=== PATIENT | female | born 1940 | race Caucasian/White ===

== ENCOUNTER 2020-09-09 11:08 | Outpatient (REF) | payer MEDICARE, SELFPAY | END 2020-09-09 11:09 | disposition home or self-care (01) | LOC: HO.HMGCLDS 11:08 | PROVIDERS: PCP Internal Medicine; Visit Provider Internal Medicine | DX: Z20.828 Contact with and (suspected) exposure to other viral communicable diseases (principal) | CPT/HCPCS: 87635 ==

== ENCOUNTER 2020-09-23 09:23 | Outpatient (REF) | payer MEDICARE, SELFPAY ==
[2020-09-23 11:52] LABS: Alanine Aminotransferase 13 U/L (0-31); Anion Gap 12 (12-20); Aspartate Amino Transferase 18 U/L (5-31); Blood Urea Nitrogen 18 mg/dL (9-16); Calcium 8.9 mg/dL (8.4-10.2); Carbon Dioxide 27 mmol/L (22-29); Chloride 105 mmol/L (96-108); Cholesterol 163 mg/dL; Estimated Glomerular Filt Rate > 60; Glucose Fasting 92 mg/dL (60-99); HDL Cholesterol 56 mg/dL; LDL Cholesterol Calculated 90 mg/dl; Potassium 4.3 mmol/l (3.3-5.1); Sodium 140 mmol/L (135-145); Triglycerides 88 mg/dL
[2020-09-23 13:48] LABS: Free T4 (Free Thyroxine) 1.19 ng/dL (0.71-1.85); Thyroid Stimulating Hormone 0.54 uIU/mL (0.32-4.0); Vitamin D 25-OH Total 56.1 ng/mL (>30)
== END 2020-09-23 09:24 | disposition home or self-care (01) ==
LOC: HO.HMGCLDS 09:23
PROVIDERS: PCP Internal Medicine; Visit Provider Internal Medicine
DX: E78.5 Hyperlipidemia, unspecified (principal); Z78.0 Asymptomatic menopausal state
CPT/HCPCS: 80048; 80061; 82306; 84439; 84443; 84450; 84460

== ENCOUNTER 2021-03-12 09:19 | Outpatient (REF) | payer MEDICARE, SELFPAY ==
[2021-03-12 12:02] LABS: Anion Gap 13 (12-20); Blood Urea Nitrogen 17 mg/dL (9-16); Calcium 9.6 mg/dL (8.4-10.2); Carbon Dioxide 27 mmol/L (22-29); Chloride 106 mmol/L (96-108); Cholesterol 179 mg/dL; Estimated Glomerular Filt Rate > 60; Glucose Fasting 89 mg/dL (60-99); HDL Cholesterol 56 mg/dL; LDL Cholesterol Calculated 100 mg/dl; Potassium 4.1 mmol/L (3.3-5.1); Sodium 142 mmol/L (135-145); Triglycerides 116 mg/dL
[2021-03-12 12:10] LABS: Free T4 (Free Thyroxine) 1.12 ng/dL (0.71-1.85); Thyroid Stimulating Hormone 0.77 uIU/mL (0.32-4.0); Vitamin D 25-OH Total 57.7 ng/mL (>30)
== END 2021-03-12 09:20 | disposition home or self-care (01) ==
LOC: HO.HMGCLDS 09:19
PROVIDERS: PCP Internal Medicine; Visit Provider Internal Medicine
DX: M85.89 Other specified disorders of bone density and structure, multiple sites (principal); E03.9 Hypothyroidism, unspecified; E78.5 Hyperlipidemia, unspecified; I10 Essential (primary) hypertension; Z78.0 Asymptomatic menopausal state
CPT/HCPCS: 36415; 80048; 80061; 82306; 84439; 84443

== ENCOUNTER 2021-04-28 12:21 | Outpatient (REF) | payer MEDICARE, SELFPAY ==
--- NOTE | ~2021-04-28 | MM_ITS ---
EXAMINATION: BONE DENSITOMETRY CLINICAL INDICATION: Encounter for screening for osteoporosis. COMPARISON: Previous BD dated 01/18/2018 and baseline BD dated 03/19/2008. TECHNIQUE: Using a [employer] DXA System (software version: 13.1) manufactured by [employer], dual-energy x-ray absorptiometry was performed of the lumbar spine and left hip. The images are of good technical quality. Summary results are attached. FINDINGS: AP SPINE L1-L2 (excluding L3 and L4): The data of L1-L4 has been changed to exclude the L3 and L4 vertebral bodies, because lumbar curvature and degenerative changes at these levels may cause overestimation of lumbar spine density. Current: BMD 0.929 g/cm2, Z-score -0.4, T-score -2.0, osteopenia, 0.5% decrease from previous, 2.8% decrease from baseline (<5% change is not significant). Prior: BMD 0.934 g/cm2. Baseline: BMD 0.956 g/cm2. LEFT FEMUR, NECK: Current: BMD 0.725 g/cm2, Z-score -0.3, T-score -2.3, osteopenia. Prior: BMD 0.779 g/cm2. Baseline: BMD 0.861 g/cm2. LEFT FEMUR, TOTAL: Current: BMD 0.782 g/cm2, Z-score 0.0, T-score -1.8, osteopenia, 11.3% decrease from previous, 13.0% decrease from baseline (<5% change is not significant). Prior: BMD 0.882 g/cm2. Baseline: BMD 0.899 g/cm2. IDENTIFIED RISK FACTORS: Osteoporosis, height loss, menopause, bilateral oophorectomy. HISTORY OF FRACTURE: None listed. MEDICATIONS: Vitamin D. MM/XR DEXA axial skeleton IMPRESSION: 1. DIAGNOSIS: Osteopenia based on the lowest T-score value of -2.3 in the femoral neck applying World Health Organization criteria. 2. 10-YEAR FRACTURE RISK PREDICTION, FRAX: Major osteoporotic fracture (clinical spine, forearm, hip or shoulder) 17.0%. Hip fracture 5.4%. 3. Treatment Recommendations: NOF guidelines recommend consideration for treatment in postmenopausal women and men age 50 and older presenting with the following: -A hip or vertebral (clinical or morphometric) fracture. -T-score less than or equal to -2.5 at the femoral neck or spine after appropriate evaluation to exclude secondary causes. -Low bone mass at the hip or spine and a 10-year fracture probability by FRAX of greater than or equal to 3% for hip fracture or greater than or equal to 20% for major osteoporotic fracture based on the [place] adapted WHO algorithm. 4. Other Recommendations: All treatment decisions require clinical judgment and consideration of individual patient factors, including patient preferences, comorbidities, previous drug use, risk factors not captured in the FRAX model (e.g. frailty, falls, vitamin D deficiency, increased bone turnover, interval significant decline in bone density) and possible under or overestimation of fracture risk by FRAX. Additional medical evaluation for secondary cause of low bone mineral density may be appropriate. FUTURE SCAN RECOMMENDATION: People with diagnosed cases of osteoporosis or at high risk for fracture should have regular bone mineral density tests. For patients eligible for Medicare, routine testing is allowed once every 2 years. The testing frequency can be increased to one year for patients who have rapidly progressing disease, those who are receiving or discontinuing medical therapy to restore bone mass, or have additional risk factors.
--- NOTE | ~2021-04-28 | MM_ITS ---
EXAMINATION: MM SCREENING DIGITAL BREAST TOMOSYNTHESIS, BILATERAL CLINICAL INFORMATION: Screening. Asymptomatic. The lifetime risk of breast cancer based on the Tyrer-Cuzick Model is 2%. COMPARISON: Mammography: 01/29/2019, 01/24/2019, 01/18/2018, 12/27/2016 TECHNIQUE: Digital breast tomosynthesis is performed in both the craniocaudal and mediolateral oblique views along with computer-aided detection (CAD). Synthesized 2D images are generated from the tomosynthesis. FINDINGS: There are scattered areas of fibroglandular density (ACR BI-RADS breast composition Category b). Parenchymal pattern is similar to prior studies. There is no developing density or interval mass or architectural abnormality. There are scattered bilateral vascular and benign round calcifications. The axilla and skin contours are unremarkable. No significant changes from prior studies. MM/MM tomosynthesis screening BI IMPRESSION: No mammographic evidence of malignancy. ASSESSMENT: BI-RADS 2: Benign RECOMMENDATION: Routine annual mammography screening. This patient's information was entered into a reminder system with a target due date for their next mammogram.
== END 2021-04-28 12:22 | disposition home or self-care (01) ==
LOC: HO.MAMMO 12:21
PROVIDERS: Visit Provider Internal Medicine
DX: Z12.31 Encounter for screening mammogram for malignant neoplasm of breast (principal); Z13.820 Encounter for screening for osteoporosis; M85.89 Other specified disorders of bone density and structure, multiple sites; Z78.0 Asymptomatic menopausal state; Z98.890 Other specified postprocedural states; Z79.899 Other long term (current) drug therapy
CPT/HCPCS: 77063; 77067; 77080

== ENCOUNTER 2021-09-09 08:17 | Outpatient (REF) | payer MEDICARE, SELFPAY ==
[2021-09-09 11:53] LABS: Alanine Aminotransferase 8 U/L (0-31); Anion Gap 11 (12-20); Aspartate Amino Transferase 17 U/L (5-31); Blood Urea Nitrogen 13 mg/dL (9-16); Calcium 9.2 mg/dL (8.4-10.2); Carbon Dioxide 28 mmol/L (22-29); Chloride 106 mmol/L (96-108); Cholesterol 163 mg/dL; Estimated Glomerular Filt Rate > 60; Glucose Fasting 92 mg/dL (60-99); HDL Cholesterol 57 mg/dL; LDL Cholesterol Calculated 91 mg/dl; Potassium 4.2 mmol/L (3.3-5.1); Sodium 141 mmol/L (135-145); Triglycerides 77 mg/dL
[2021-09-09 12:01] LABS: Free T4 (Free Thyroxine) 1.12 ng/dL (0.71-1.85); Thyroid Stimulating Hormone 0.71 uIU/mL (0.32-4.0); Vitamin D 25-OH Total 94.4 ng/mL (>30)
== END 2021-09-09 08:18 | disposition home or self-care (01) ==
LOC: HO.HMGCLDS 08:17
PROVIDERS: PCP Internal Medicine; Visit Provider Internal Medicine
DX: E78.5 Hyperlipidemia, unspecified (principal); E03.9 Hypothyroidism, unspecified; I10 Essential (primary) hypertension; Z78.0 Asymptomatic menopausal state
CPT/HCPCS: 36415; 80048; 80061; 82306; 84439; 84443; 84450; 84460

== ENCOUNTER 2022-04-29 12:25 | Outpatient (REF) | payer MEDICARE, SELFPAY ==
--- NOTE | ~2022-04-29 | MM_ITS ---
EXAMINATION: MM SCREENING DIGITAL BREAST TOMOSYNTHESIS, BILATERAL CLINICAL INFORMATION: Screening. Asymptomatic. The lifetime risk of breast cancer based on the Tyrer-Cuzick Model is 1%. COMPARISON: Mammography: 04/28/2021, 01/29/2019, 01/24/2019, 01/18/2018 TECHNIQUE: Digital breast tomosynthesis is performed in both the craniocaudal and mediolateral oblique views along with computer-aided detection (CAD). Synthesized 2D images are generated from the tomosynthesis. FINDINGS: There are scattered areas of fibroglandular density (ACR BI-RADS breast composition Category b). There are no significant masses, abnormal calcifications, or other abnormalities. Breast tissue composition borders on heterogeneously dense. Parenchymal pattern is similar to prior studies and there is no developing density. Scattered benign round and rim and vascular calcifications are again noted. The axilla are unremarkable. MM/MM tomosynthesis screening BI IMPRESSION: No mammographic evidence of malignancy. ASSESSMENT: BI-RADS 2: Benign RECOMMENDATION: Routine annual mammography screening. This patient's information was entered into a reminder system with a target due date for their next mammogram.
== END 2022-04-29 12:26 | disposition home or self-care (01) ==
LOC: HO.MAMMO 12:25
PROVIDERS: Visit Provider Internal Medicine
DX: Z12.31 Encounter for screening mammogram for malignant neoplasm of breast (principal)
CPT/HCPCS: 77063; 77067

== ENCOUNTER 2022-05-12 06:31 | Outpatient (REF) | payer MEDICARE, SELFPAY ==
[2022-05-12 12:04] LABS: Alanine Aminotransferase 10 U/L (0-31); Anion Gap 11 (12-20); Aspartate Amino Transferase 20 U/L (5-31); Blood Urea Nitrogen 21 mg/dL (9-16); Calcium 9.4 mg/dL (8.4-10.2); Carbon Dioxide 28 mmol/L (22-29); Chloride 106 mmol/L (96-108); Cholesterol 185 mg/dL; Estimated Glomerular Filt Rate 59; Glucose Fasting 94 mg/dL (60-99); HDL Cholesterol 61 mg/dL; LDL Cholesterol Calculated 109 mg/dl; Potassium 4.1 mmol/L (3.3-5.1); Sodium 141 mmol/L (135-145); Triglycerides 79 mg/dL
[2022-05-12 12:30] LABS: Free T4 (Free Thyroxine) 1.17 ng/dL (0.71-1.85); Thyroid Stimulating Hormone 0.62 uIU/mL (0.32-4.0); Vitamin D 25-OH Total 65.3 ng/mL (>30)
== END 2022-05-12 06:32 | disposition home or self-care (01) ==
LOC: HO.HMGCLDS 06:31
PROVIDERS: Visit Provider Internal Medicine
DX: E03.9 Hypothyroidism, unspecified (principal); E78.5 Hyperlipidemia, unspecified; M85.89 Other specified disorders of bone density and structure, multiple sites; Z78.0 Asymptomatic menopausal state
CPT/HCPCS: 36415; 80048; 80061; 82306; 84439; 84443; 84450; 84460

== ENCOUNTER 2022-11-10 09:26 | Outpatient (REF) | payer MEDICARE, SELFPAY ==
[2022-11-10 11:46] LABS: Alanine Aminotransferase 8 U/L (0-31); Anion Gap 11 (12-20); Aspartate Amino Transferase 19 U/L (5-31); Blood Urea Nitrogen 15 mg/dL (9-16); Calcium 9.5 mg/dL (8.4-10.2); Carbon Dioxide 28 mmol/L (22-29); Chloride 105 mmol/L (96-108); Cholesterol 171 mg/dL; Estimated Glomerular Filt Rate > 60; Glucose Fasting 93 mg/dL (60-99); HDL Cholesterol 57 mg/dL; LDL Cholesterol Calculated 96 mg/dl; Potassium 4.2 mmol/L (3.3-5.1); Sodium 140 mmol/L (135-145); Triglycerides 91 mg/dL
[2022-11-10 12:01] LABS: Free T4 (Free Thyroxine) 1.12 ng/dL (0.71-1.85); Thyroid Stimulating Hormone 0.39 uIU/mL (0.32-4.0)
== END 2022-11-10 09:27 | disposition home or self-care (01) ==
LOC: HO.HMGCLDS 09:26
PROVIDERS: PCP Internal Medicine; Visit Provider Internal Medicine
DX: E03.9 Hypothyroidism, unspecified (principal); E78.5 Hyperlipidemia, unspecified
CPT/HCPCS: 36415; 80048; 80061; 84439; 84443; 84450; 84460

== ENCOUNTER 2023-03-15 11:42 | Outpatient (REF) | payer MEDICARE, SELFPAY ==
--- NOTE | ~2023-03-15 | XR_ITS ---
EXAMINATION: XR KNEE, RIGHT CLINICAL INFORMATION: Atraumatic right knee pain. COMPARISON: None available. TECHNIQUE: Four views of the right knee. FINDINGS: Mild tricompartmental degenerative joint changes are seen. Mild femoral-tibial chondrocalcinosis is seen. There is no acute fracture, dislocation or joint effusion. The soft tissues are unremarkable. XR/XR knee RT 4V IMPRESSION: Mild tricompartmental degenerative joint changes suggesting osteoarthritis. No acute abnormality.
== END 2023-03-15 11:43 | disposition home or self-care (01) ==
LOC: HO.HMGCX 11:42
PROVIDERS: PCP Internal Medicine; Visit Provider Nurse Practitioner Family
DX: M25.561 Pain in right knee (principal)
CPT/HCPCS: 73564

== ENCOUNTER 2023-05-02 08:03 | Outpatient (REF) | payer MEDICARE, SELFPAY ==
[2023-05-02 12:07] LABS: Alanine Aminotransferase 10 U/L (0-31); Anion Gap 12 (12-20); Aspartate Amino Transferase 19 U/L (5-31); Blood Urea Nitrogen 15 mg/dL (9-16); Calcium 9.8 mg/dL (8.4-10.2); Carbon Dioxide 28 mmol/L (22-29); Chloride 106 mmol/L (96-108); Cholesterol 168 mg/dL; Estimated Glomerular Filt Rate > 60; Glucose Fasting 94 mg/dL (60-99); HDL Cholesterol 55 mg/dL; LDL Cholesterol Calculated 99 mg/dl; Potassium 4.5 mmol/L (3.3-5.1); Sodium 141 mmol/L (135-145); Triglycerides 72 mg/dL
[2023-05-02 12:35] LABS: Free T4 (Free Thyroxine) 1.17 ng/dL (0.71-1.85); Thyroid Stimulating Hormone 0.21 uIU/mL (0.32-4.0); Vitamin D 25-OH Total 70.2 ng/mL (>30)
== END 2023-05-02 08:04 | disposition home or self-care (01) ==
LOC: HO.HMGCLDS 08:03
PROVIDERS: PCP Internal Medicine; Visit Provider Internal Medicine
DX: E03.9 Hypothyroidism, unspecified (principal); E78.5 Hyperlipidemia, unspecified; M85.89 Other specified disorders of bone density and structure, multiple sites; Z78.0 Asymptomatic menopausal state
CPT/HCPCS: 36415; 80048; 80061; 82306; 84439; 84443; 84450; 84460

== ENCOUNTER 2023-05-05 12:04 | Outpatient (REF) | payer MEDICARE, SELFPAY ==
--- NOTE | ~2023-05-05 | XR_ITS ---
EXAMINATION: XR FOOT, RIGHT CLINICAL INFORMATION: Pain between first and second toe. COMPARISON: None available. TECHNIQUE: AP, lateral, and oblique views of the right foot. XR/XR foot RT min 3V FINDINGS/IMPRESSION: Decreased bone mineral density limits sensitivity for subtle fracture. There is no acute radiographic finding. No fracture or dislocation is seen. Severe osteoarthritis involves the first MTP joint. The joint spaces otherwise appear maintained. No lytic or sclerotic bony lesion is seen. No ankle joint effusion is noted. The soft tissues appear unremarkable.
== END 2023-05-05 12:05 | disposition home or self-care (01) ==
LOC: HO.HMGCX 12:04
PROVIDERS: PCP Internal Medicine; Visit Provider Physician Assistant
DX: M79.671 Pain in right foot (principal)
CPT/HCPCS: 73630

== ENCOUNTER 2023-05-11 15:45 | Outpatient (REF) | payer MEDICARE, SELFPAY ==
--- NOTE | ~2023-05-11 | MM_ITS ---
EXAMINATION: MM SCREENING DIGITAL BREAST TOMOSYNTHESIS, BILATERAL CLINICAL INFORMATION: Screening. Asymptomatic. The lifetime risk of breast cancer based on the Tyrer-Cuzick Model is 1.2%. COMPARISON: Mammography: This study is compared with prior mammograms dating back to 2018. TECHNIQUE: Digital breast tomosynthesis is performed in both the craniocaudal and mediolateral oblique views along with computer-aided detection (CAD). Synthesized 2D images are generated from the tomosynthesis. FINDINGS: The breasts are heterogeneously dense, which may obscure small masses (ACR BI-RADS breast composition Category c). There are no significant masses, abnormal calcifications, or other abnormalities. MM/MM tomosynthesis screening BI IMPRESSION: No mammographic evidence of malignancy. ASSESSMENT: BI-RADS BI-RADS 1 - Negative RECOMMENDATION: Routine annual mammography screening. 1 year F/U This patient's information was entered into a reminder system with a target due date for their next mammogram.
== END 2023-05-11 15:46 | disposition home or self-care (01) ==
LOC: HO.MAMMO 15:45
PROVIDERS: PCP Internal Medicine; Visit Provider Internal Medicine
DX: Z12.31 Encounter for screening mammogram for malignant neoplasm of breast (principal)
CPT/HCPCS: 77063; 77067

== ENCOUNTER → 2023-05-11 16:00 | Outpatient (BNV) | payer MEDICARE, SELFPAY | PROVIDERS: PCP Internal Medicine; Visit Provider Radiology Diagnostic Radiology | DX: Z12.31 Encounter for screening mammogram for malignant neoplasm of breast (principal) | CPT/HCPCS: 77063; 77067 ==

== ENCOUNTER 2023-06-09 09:49 | Outpatient (AMB) | payer MEDICARE, SELFPAY ==
--- NOTE | 2023-06-09 10:12 | A.OFFPC_ITS ---
Vital Signs 06/09/23 10:17 Height 5 ft 5.5 in Weight 158 lb BMI 25.9 BP 140/72 H Blood Pressure Location Rt brachial Position Sitting Pulse 90 Pulse Source Pulse Oximeter Pulse Oximetry (%) 97 Oxygen Delivery Method Room Air Intake Visit Reasons: 6 Month follow up Intake Note: Pt is here today for her 6 months f/u Allergies amoxicillin Adverse Reaction (Unknown, Verified 06/09/23 10:24) yeast infection codeine Adverse Reaction (Unknown, Verified 06/09/23 10:24) vomiting Medication List - Last Reconciled 06/09/23 by Clarice Boyce MD atorvastatin 10 mg PO DAILY cholecalciferol (vitamin D3) 25 mcg PO DAILY doxepin 6 mg PO BEDTIME latanoprost 0.005% drps ophthalmic (eye) levothyroxine 75 mcg PO QAM lorazepam 0.5 mg PO DAILY PRN omeprazole 20 mg PO DAILY Tobacco use date assessed: 06/09/23 Fall risk assessment: No Falls in past year Last assessed Fall Risk: 06/09/23 Dental Screening Dental Screen Date: 06/09/23 Did you have a dental visit in the last 12 months?: Yes Did you have a dental problem in the last 6 months where you did not have access to dental care?: No Was dental information given to patient?: Patient has dentist HPI 6 Month follow up HPI Details 83-year-old lady with dyslipidemia, hypothyroidism, history of esophagitis , here today for follow-up. She has been stable and controlled on present medications, with latest fasting lipids and thyroid levels showing results within normal limits. Has been taking her atorvastatin, and levothyroxine regularly , but has not needed to take any further episodes of lorazepam since the passing for and has also not needed to take her omeprazole, she has not been having any further heartburn issues. 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 and has been taking butterburr extract daily which has been helping prevent migraines [facility] Medical History (Updated 06/09/23 @ 10:46 by Clarice Boyce MD) Acquired hypothyroidism Anxiety disorder Dyslipidemia Esophagitis External hemorrhoids without complication Menopause Migraine Osteopenia of multiple sites Ovarian cyst Postmenopause Recurrent insomnia Surgical History History of salpingo-oophorectomy S/P dilatation of esophageal stricture Family History Father Smoker Lung cancer Mother Multiple myeloma Social History Housing: House Alcohol intake: current Patient Tobacco Use Status: Never used Tobacco e-Cigarette/Vaping Use: Never Used Second Hand Smoke Exposure: No service: No Current occupational status: retired Cognitive needs: No Hearing needs: No Vision needs: Yes Questionnaire PHQ-9 Over the last 2 weeks, how often have you been bothered by any of the following problems? 1. Little interest or pleasure in doing things: not at all 2. Feeling down, depressed, or hopeless: not at all 3. Trouble falling or staying asleep, or sleeping too much: not at all 4. Feeling tired or having little energy: not at all 5. Poor appetite or overeating: not at all 6. Feeling bad about yourself - or that you are a failure or have let yourself or your family down: not at all 7. Trouble concentrating on things, such as reading the newspaper or watching television: not at all 8. Moving or speaking so slowly that other people could have noticed. Or the opposite - being so fidgety or restless that you have been moving around a lot more than usual: not at all 9. Thoughts that you would be better off or of hurting yourself in some way: not at all Total score: 0 Depression Screening Interpretation: Negative 18072 - PHQ-9 Billing: Yes Source: Developed by Drs. Stan Long, Kika Will, Edward Rutherford and colleagues, with an educational cristian from [employer]. Thrive Questionnaire Date Thrive assessed: 06/09/23 I am a: Patient What is your living situation today?: I have a steady place to live Within the past 12 months, did the food you bought not last and you didn't have the money to get more?: Never true Within the past 12 months, did you worry whether your food would run out before you got money to buy more?: Never true Do you have trouble paying for medicines?: No Do you have trouble getting transportation to medical appointments?: No Do you have trouble paying your heating and electricity bill?: No Do you have trouble taking care of your child, family member or friend?: No Do you have trouble with day-to-day activities such as bathing, preparing meals, shopping, managing finances, etc.?: No Are you currently unemployed and looking for a job?: No Are you interested in more education?: No AUDIT C Alcohol Use Questionnaire (AUDIT-C) 1. How often do you have a drink containing alcohol?: Monthly or less 2. How many drinks containing alcohol do you have on a typical day when you are drinking?: 1 or 2 3. How often do you have six or more drinks on one occasion?: Never Total Score: 1 FREDRICK-7 AMB Questionnaire FREDRICK-7 Date FREDRICK - 7 assessed: 06/09/23 Feeling nervous, anxious, or on edge: 0 = Not at all Not being able to stop or control worryin = Not at all Worrying too much about different things: 0 = Not at all Trouble relaxin = Not at all Being so restless that it is hard to sit still: 0 = Not at all Becoming easily annoyed or irritable: 0 = Not at all Feeling afraid as if something awful might happen: 0 = Not at all Total FREDRICK-7 score (0-4 normal; 5-9 mild; 10-14 moderate; 15-21 severe): 0 Source: Developed by Drs. Stan Long, Kika Will, Edward Rutherford and colleagues, with an educational cristian from [employer]. FREDRICK-7 Assessment Billing FREDRICK-7 Assessment Tool: FREDRICK-7 Assessment 03721 Review of Systems Const Denies body aches, Denies fatigue, Denies fever(s) and Denies weakness Eyes Reports no additional complaints Card Denies chest pain, Denies lightheadedness, Denies palpitations and Denies dyspnea Resp Denies chest congestion, Denies cough and Denies dyspnea GI Denies abdominal pain, Denies change in bowel habits and Denies heartburn Reports no additional complaints Musc Reports no additional complaints Neuro Denies weakness Endo Denies fatigue, Denies polydipsia, Denies polyuria and Denies palpitations Aller/Immun Reports no additional complaints Physical exam (Primary Care) Vital Signs: Last Vital Signs Pulse 90 06/09/23 10:17 BP 140/72 H 06/09/23 10:17 Pulse Ox 97 06/09/23 10:17 Oxygen Delivery Method Room Air 06/09/23 10:17 BMI result Body Mass Index 25.9 Tobacco/Smoking Status: Tobacco use Status Tobacco use date assessed 06/09/23 06/09/23 10:14 Patient Tobacco Use Status Never used Tobacco 06/09/23 10:12 e-Cigarette/Vaping Use Never Used 06/09/23 10:12 PHQ-9: PHQ-9 Score PHQ-9: Total score 0 06/09/23 11:35 Depression Screening Interpretation: Negative Thrive Assessment: Date of Thrive Assessment Date Thrive assessed 06/09/23 06/09/23 11:35 Const Other: Alert oriented x3, no acute cardiorespiratory distress, ambulatory with normal gait HENMT Mouth: Normal oral and palatal mucosa present, oropharynx normal and moist mucous membranes Eyes General: appearance normal, both eyes and all related structures Neck Other: Supple, no lymphadenopathy, thyroid gland nonpalpable Resp Other: Clear to auscultation bilaterally Cardio Other: S1-S2 present, regular rate and rhythm GI Inspection: Yes normal to inspection Palpation (GI): Soft to palpation, nontender, no guarding and no masses Auscultation: normal bowel sounds Neuro General: gait normal, moves all extremities and no focal motor deficits Extrem General: Yes full ROM, Yes no joint enlargement, Yes no clubbing, cyanosis or edema and Yes normal gait Results Reviewed Results Reviewed: ENTERED: 05/02/[address]: ORDERED: Met Prof Fast, AST, ALT, Lipid Panel, Vitamin D 25-OH, Free T4, TSH Test Result Flag Reference Site Sodium 141 135-145 mmol/L Potassium 4.5 3.3-5.1 mmol/L CL 106 96-108 mmol/L CO2 28 22-29 mmol/L Gap 12 12-20 BUN 15 9-16 mg/dL Creat 0.82 0.5-1.4 mg/dL EGFR > 60 NOTE: For -[place] individuals, multiply the result by 1.210. Chronic Kidney Disease: Estimated GFR < 60 mL/min/1.73m2 Severe Kidney Disease: Estimated GFR < 15 mL/min/1.73m2 FBS 94 60-99 mg/dL CA 9.8 8.4-10.2 mg/dL AST (GOT) 19 5-31 U/L ALT (GPT) 10 0-31 U/L Triglyceride 72 mg/dL Desirable Triglyceride: less than 150 mg/dL Borderline High Triglyceride 150-199 mg/dL High Triglyceride: 200-499 mg/dL Very High Triglyceride: greater than or equal to 5OO mg/dL Chol 168 mg/dL Desirable Cholesterol: less than 200 mg/dL Borderline High Cholesterol: 200-239 mg/dL High Cholesterol: greater than 239 mg/dL LDL Calculated 99 mg/dl Desirable LDL: less than 100 mg/dL Near Optimal/Above Optimal LDL: 110-129 mg/dL Borderline High LDL: 130-159 mg/dL High LDL: 160-189 mg/dL Very High LDL: greater than or equal to 190 mg/dL HDL 55 mg/dL Desirable HDL: greater than 40 mg/dL Note: This HDL assay may give artificially low results in patients with liver disease. Vit D 25-OH Tot 70.2 >30 ng/mL Health Based Reference Values* < 20 ng/mL Deficient 20-30 ng/mL Insufficient > 30 ng/mL Sufficient *Jeanie WELLS. N Engl J Med. 2007;[id number] Care must be taken in interpreting Vitamin D results from different laboratories and methodologies. Published data demonstrated that results from patients undergoing hemodialysis may show a negative bias when tested with various automated 25-OH vitamin D assays when compared to LC-MS/MS. When testing samples from patients whose predominant form of Vitamin D is Vitamin D2, such as patients receiving Vitamin D2 supplementation, results that are subtherapeutic should be confirmed with another method such as LC-MS/MS. Free T4 1.17 0.71-1.85 ng/dL TSH 3rd Gen. 0.21 L 0.32-4.0 uIU/mL TSH 3rd Generation ([facility]) Assessment and Plan Assessment & Plan (1) Postmenopause: Code(s): Z78.0 - Asymptomatic menopausal state Plan: Will check vitamin-D level (2) Acquired hypothyroidism: Code(s): E03.9 - Hypothyroidism, unspecified Plan: Recent thyroid levels are within normal limits, will continue current dose of levothyroxine. And again reminded to take it 1st thing in the morning an hour at least before breakfast and with just water and not together with any other medications. (3) Osteopenia of multiple sites: Code(s): M85.89 - Other specified disorders of bone density and structure, multiple sites Plan: Continue with regular weight-bearing exercise, and take adequate calcium and vitamin-D supplements as directed. (4) Dyslipidemia: Code(s): E78.5 - Hyperlipidemia, unspecified Plan: Reviewed recent fasting lipid profile with patient with levels within normal limits . Continue with atorvastatin , in addition to adherence to low- cholesterol diet and regular exercise, at least 30 minutes 3 to 4 times a week. Advised patient to make healthy food choices, eat more fruits, vegetables, whole grains, wild caught fish and low-fat dairy. Limit amount of meat and fried or fatty food products, as well as processed foods and fast foods. Follow-up scheduled with repeat fasting lipid panel in 3 months. (5) Recurrent insomnia: Code(s): G47.00 - Insomnia, unspecified Plan: Rarely needing to use doxepin for insomnia Orders: Orders Lipid Panel 3 Months E03.9 - Hypothyroidism, unspecified, E78.5 - Hyperlipidemia, unspecified, M85.89 - Other specified disorders of bone density and structure, multiple sites, Z78.0 - Asymptomatic menopausal state Alanine Aminotransferase 3 Months E03.9 - Hypothyroidism, unspecified, E78.5 - Hyperlipidemia, unspecified, M85.89 - Other specified disorders of bone density and structure, multiple sites, Z78.0 - Asymptomatic menopausal state Aspartate Amino Transferase 3 Months E03.9 - Hypothyroidism, unspecified, E78.5 - Hyperlipidemia, unspecified, M85.89 - Other specified disorders of bone density and structure, multiple sites, Z78.0 - Asymptomatic menopausal state Vitamin D 25-OH Total 3 Months E03.9 - Hypothyroidism, unspecified, E78.5 - Hyperlipidemia, unspecified, M85.89 - Other specified disorders of bone density and structure, multiple sites, Z78.0 - Asymptomatic menopausal state Thyroid Stimulating Hormone 3 Months E03.9 - Hypothyroidism, unspecified, E78.5 - Hyperlipidemia, unspecified, M85.89 - Other specified disorders of bone density and structure, multiple sites, Z78.0 - Asymptomatic menopausal state Free T4 (Free Thyroxine) 3 Months E03.9 - Hypothyroidism, unspecified, E78.5 - Hyperlipidemia, unspecified, M85.89 - Other specified disorders of bone density and structure, multiple sites, Z78.0 - Asymptomatic menopausal state Coding Level of Care Code Est Pt Level 4 (86584) Diagnoses Postmenopause Z78.0 Acquired hypothyroidism E03.9 Osteopenia of multiple sites M85.89 Dyslipidemia E78.5 Recurrent insomnia G47.00 Additional Codes FREDRICK-7 Assessment Billing - FREDRICK-7 Assessment Tool: FREDRICK-7 Assessment 90010 ([id number])
[2023-06-09 10:17] VITALS: BP 140/72; PULSE 90; O2SAT 97; BMI 25.9
== END 2023-06-09 11:03 | disposition home or self-care (01) ==
PROVIDERS: PCP Internal Medicine; Visit Provider Internal Medicine
DX: Z78.0 Asymptomatic menopausal state (principal); E03.9 Hypothyroidism, unspecified; M85.89 Other specified disorders of bone density and structure, multiple sites; E78.5 Hyperlipidemia, unspecified; G47.00 Insomnia, unspecified
CPT/HCPCS: 99214

== ENCOUNTER 2023-08-23 08:02 | Outpatient (AMB) | payer MEDICARE, SELFPAY ==
[2023-08-23 08:15] VITALS: BP 130/80; PULSE 76; TEMP 36.8; O2SAT 98; BMI 25.9
--- NOTE | 2023-08-23 08:15 | AM.OFFWIN_ITS ---
Intake Vital Signs 08/23/23 08:15 Height 5 ft 5.5 in Weight 158 lb BMI 25.9 BP 130/80 Blood Pressure Location Lt brachial Position Sitting Pulse 76 Pulse Source Pulse Oximeter Temp 98.3 F Temp Source Temporal Artery Scan Pulse Oximetry (%) 98 Intake Visit Reasons: EP Cough Intake Note: pt is here for c/o cough Patient Tobacco Use Status: Never used Tobacco Allergies amoxicillin Adverse Reaction (Unknown, Verified 08/23/23 08:15) yeast infection codeine Adverse Reaction (Unknown, Verified 08/23/23 08:15) vomiting Do you need a note to return to daycare/school/sports/work: Yes HPI HPI Comments History of Present Illness Details This is an 83-year-old female with a past medical history of h ypothyroidism, hyperlipidemia, gastroesophageal reflux disease and seasonal allergies treated with Zyrtec for only the past 1 week presenting for evaluation of a cough that she has had for the past 10 days. Patient has been taking Delsym with minimal relief of her symptoms. Patient denies having any fevers, chills, chest pain or shortness of breath. Patient also denies having any recent sick contacts or immunizations. [facility] Medical History (Updated 08/23/23 @ 09:09 by Fátima Beach PA-C) External hemorrhoids without complication Recurrent insomnia Postmenopause Anxiety disorder Menopause Osteopenia of multiple sites Dyslipidemia Ovarian cyst Migraine Esophagitis Acquired hypothyroidism Surgical History S/P dilatation of esophageal stricture History of salpingo-oophorectomy Family History Father Smoker Lung cancer Mother Multiple myeloma Social History Housing: House Alcohol intake: current Patient Tobacco Use Status: Never used Tobacco e-Cigarette/Vaping Use: Never Used Second Hand Smoke Exposure: No service: No Current occupational status: retired Cognitive needs: No Hearing needs: No Vision needs: Yes Review of Systems Const All systems reviewed & are unremarkable except as noted in HPI and below Denies chills, Denies fatigue and Denies fever(s) Eyes Reports no additional complaints ENT Reports no additional complaints, Reports sore throat ( itchy intermittently), Denies throat swelling and Denies tongue swelling Card Denies dyspnea Resp Reports cough, Denies pain with cough and Denies dyspnea Musc Reports no additional complaints Endo Denies fatigue Aller/Immun Denies throat swelling and Denies tongue swelling Physical Exam Vital Signs: Last Vital Signs Temp 98.3 F 08/23/23 08:15 Pulse 76 08/23/23 08:15 BP 130/80 08/23/23 08:15 Pulse Ox 98 08/23/23 08:15 BMI result Body Mass Index 25.9 Const General: cooperative, healthy appearing and comfortable Nutritional Appearance: well nourished Orientation/consciousness: patient oriented x3 Limitations: no limitations HEENT Head: Yes normal to inspection and Yes normocephalic Ears: external ears normal and TM's abnormal bilaterally (bulging bilaterally,L> R,no erythema or fluid level noted) General nose exam: Normal external nose present Face and sinus: Yes normal facial exam Mouth: Normal oral and palatal mucosa present, oropharynx normal and moist mucous membranes Eyes General: appearance normal, both eyes and all related structures Conjunctivae: conjunctivae normal Resp Effort & Inspection: normal respiratory effort, no audible wheezes, no cough and no respiratory distress Auscultation: clear to auscultation bilaterally, no crackles, no rales, no rhonchi, no wheezes and breath sounds present Cardio Rate: regular rate Rhythm: regular rhythm Neuro General: patient oriented x3 Psych Appearance: grossly normal Mental Status: mental status grossly normal Speech and movement: Normal speech and movement present Affect: normal affect Insight: Good insight present (Psych) Judgement: Good judgement present (Psych) Assessment & Plan Assessment & Plan (1) Allergic rhinitis: Comment: Patient to continue taking Zyrtec daily and will initiate additional therapy with Flonase once daily. Patient will follow-up with her primary care provider in 2 weeks for a review of her symptoms. Code(s): J30.9 - Allergic rhinitis, unspecified (2) Cough: Code(s): R05.9 - Cough, unspecified Medications: New fluticasone propionate 50 mcg/actuation administer into each nostril 1 spray intranasal DAILY 16 grams 1RF Coding Level of Care Code Est Pt Level 3 (31275) Diagnoses Allergic rhinitis J30.9 Cough R05.9 Time Spent (min) 25
== END 2023-08-23 09:10 | disposition home or self-care (01) ==
PROVIDERS: PCP Internal Medicine; Visit Provider Physician Assistant
DX: J30.9 Allergic rhinitis, unspecified (principal); R05.9 Cough, unspecified
CPT/HCPCS: 99213

== ENCOUNTER 2023-09-04 08:52 | Outpatient (REF) | payer MEDICARE, SELFPAY ==
[2023-09-04 12:00] LABS: Alanine Aminotransferase 12 U/L (0-31); Aspartate Amino Transferase 19 U/L (5-31); Cholesterol 167 mg/dL (<200); HDL Cholesterol 55 mg/dL (>40); LDL Cholesterol Calculated 95 mg/dL (<100); Triglycerides 87 mg/dL (<150)
[2023-09-04 12:21] LABS: Free T4 (Free Thyroxine) 1.02 ng/dL (0.71-1.85); Thyroid Stimulating Hormone 1.34 uIU/mL (0.32-4.0)
== END 2023-09-04 08:53 | disposition home or self-care (01) ==
LOC: HO.HMGCLDS 08:52
PROVIDERS: PCP Internal Medicine; Visit Provider Internal Medicine
DX: E03.9 Hypothyroidism, unspecified (principal); E78.5 Hyperlipidemia, unspecified; M85.89 Other specified disorders of bone density and structure, multiple sites; Z78.0 Asymptomatic menopausal state
CPT/HCPCS: 36415; 80061; 82306; 84439; 84443; 84450; 84460

== ENCOUNTER 2023-09-11 11:27 | Outpatient (AMB) | payer MEDICARE, SELFPAY ==
[2023-09-11 11:43] VITALS: BP 140/80; PULSE 76; O2SAT 99; BMI 26.1
--- NOTE | 2023-09-11 11:43 | A.OFFPC_ITS ---
Vital Signs 09/11/23 11:43 Height 5 ft 5.5 in Weight 159 lb 6 oz BMI 26.1 BP 140/80 H Blood Pressure Location Lt brachial Position Sitting Pulse 76 Pulse Source Pulse Oximeter Pulse Oximetry (%) 99 Oxygen Delivery Method Room Air Intake Visit Reasons: 3 month follow up/should have been in Jul Intake Note: pt is here to follow up for lab results Allergies amoxicillin Adverse Reaction (Unknown, Verified 12/14/23 03:35) yeast infection codeine Adverse Reaction (Unknown, Verified 12/14/23 03:35) vomiting Medication List - Last Reconciled 09/11/23 by Clarice Boyce MD atorvastatin 10 mg PO DAILY cholecalciferol (vitamin D3) 25 mcg PO DAILY doxepin 6 mg PO BEDTIME fluticasone propionate 50 mcg/actuation 1 spray intranasal DAILY latanoprost 0.005% drps ophthalmic (eye) levothyroxine 75 mcg PO QAM lorazepam 0.5 mg PO DAILY PRN omeprazole 20 mg PO DAILY Tobacco use date assessed: 09/11/23 Fall risk assessment: No Falls in past year Last assessed Fall Risk: 09/11/23 Dental Screening Dental Screen Date: 09/11/23 Did you have a dental visit in the last 12 months?: Yes Did you have a dental problem in the last 6 months where you did not have access to dental care?: No Was dental information given to patient?: Patient has dentist HPI 3 month follow up/should have been in Jul HPI Details 83-year-old lady here today for follow-u p on her hypothyroidism, hyperlipidemia and insomnia. She has been compliant with taking her medications, states that doxepin has been helping her sleep. Had recent fasting labs done which showed thyroid levels, lipid levels , vitamin-D and liver enzymes within normal limits. [facility] Medical History Stress fracture of right foot Essential hypertension External hemorrhoids without complication Recurrent insomnia Postmenopause Anxiety disorder Menopause Osteopenia of multiple sites Dyslipidemia Ovarian cyst Migraine Esophagitis Acquired hypothyroidism Surgical History S/P dilatation of esophageal stricture History of salpingo-oophorectomy Family History Father Smoker Lung cancer Mother Multiple myeloma Social History Housing: House Alcohol intake: current Patient Tobacco Use Status: Never used Tobacco e-Cigarette/Vaping Use: Never Used Second Hand Smoke Exposure: No service: No Current occupational status: retired Cognitive needs: No Hearing needs: No Vision needs: Yes Questionnaire Thrive Questionnaire Date Thrive assessed: 06/09/23 FREDRICK-7 AMB Questionnaire FREDRICK-7 Date FREDRICK - 7 assessed: 06/09/23 Source: Developed by Drs. Stan Long, Kika Will, Edward Rutherford and colleagues, with an educational cristian from [employer]. Review of Systems Const Denies body aches, Denies fatigue, Denies fever(s) and Denies weakness Eyes Reports no additional complaints Card Denies chest pain, Denies lightheadedness, Denies palpitations and Denies dyspnea Resp Denies chest congestion, Denies cough and Denies dyspnea GI Denies abdominal pain, Denies change in bowel habits and Denies heartburn Reports no additional complaints Musc Reports no additional complaints Neuro Denies weakness Endo Denies fatigue, Denies polydipsia, Denies polyuria and Denies palpitations Aller/Immun Reports no additional complaints Physical exam (Primary Care) Vital Signs: Last Vital Signs Pulse 76 09/11/23 11:43 BP 140/80 H 09/11/23 11:43 Pulse Ox 99 09/11/23 11:43 Oxygen Delivery Method Room Air 09/11/23 11:43 BMI result Body Mass Index 26.1 Tobacco/Smoking Status: Tobacco use Status Tobacco use date assessed 09/11/23 09/11/23 11:49 Patient Tobacco Use Status Never used Tobacco 09/11/23 11:44 e-Cigarette/Vaping Use Never Used 09/11/23 11:44 Thrive Assessment: Date of Thrive Assessment Date Thrive assessed 06/09/23 09/11/23 11:44 Const Other: Alert oriented x3, no acute cardiorespiratory distress, ambulatory with normal gait HENMT Mouth: Normal oral and palatal mucosa present, oropharynx normal and moist m ucous membranes Eyes General: appearance normal, both eyes and all related structures Neck Other: Supple, no lymphadenopathy, thyroid gland nonpalpable Resp Other: Clear to auscultation bilaterally Cardio Other: S1-S2 present, regular rate and rhythm GI Inspection: Yes normal to inspection Palpation (GI): Soft to palpation, nontender, no guarding and no masses Auscultation: normal bowel sounds Neuro General: gait normal, moves all extremities and no focal motor deficits Extrem General: Yes full ROM, Yes no joint enlargement, Yes no clubbing, cyanosis or edema and Yes normal gait Results Reviewed Results Reviewed: RUN: 09/11/23 1203 PAGE 1 [facility] [address] [place] [id number] [employer] Structure Builder And Servicer: Abdulaziz Headley M.D. Specimen Inquiry Name: Dodie Watson Age/Sex: 83/F : 1940 Unit#: [id number] Attend Dr: Clarice Boyce MD Re09/04/23 Status: DEP REF Location: .[facility] Disch: SPEC : [id number] SHELLI: 09/04/23 STATUS: COMP REQ : [id number] RECD: 09/04/[address]: Clarice Boyce MD COMP: 09/04/23 ENTERED: 09/04/[address] [facility] [address]: ORDERED: AST, ALT, Lipid Panel, Vitamin D 25-OH, Free T4, TSH Test Result Flag Reference Site AST (GOT) 19 5-31 U/L ALT (GPT) 12 0-31 U/L Triglyceride 87 <150 mg/dL Desirable Triglyceride: less than 150 mg/dL Borderline High Triglyceride 150-199 mg/dL High Triglyceride: 200-499 mg/dL Very High Triglyceride: greater than or equal to 5OO mg/dL Cholesterol 167 <200 mg/dL Desirable Cholesterol: less than 200 mg/dL Borderline High Cholesterol: 200-239 mg/dL High Cholesterol: greater than 239 mg/dL LDL Calculated 95 <100 mg/dL Desirable LDL: less than 100 mg/dL Near Optimal/Above Optimal LDL: 110-129 mg/dL Borderline High LDL: 130-159 mg/dL High LDL: 160-189 mg/dL Very High LDL: greater than or equal to 190 mg/dL HDL 55 >40 mg/dL Desirable HDL: greater than 40 mg/dL Note: This HDL assay may give artificially low results in patients with liver disease. Vit D 25-OH Tot 79.0 >30 ng/mL Health Based Reference Values* < 20 ng/mL Deficient 20-30 ng/mL Insufficient > 30 ng/mL Sufficient *Jeanie WELLS. N Engl J Med. 2007;[id number] Care must be taken in interpreting Vitamin D results from different laboratories and methodologies. Published data demonstrated that results from patients undergoing hemodialysis may show a negative bias when tested with various automated 25-OH vitamin D assays when compared to LC-MS/MS. When testing samples from patients whose predominant form of Vitamin D is Vitamin D2, such as patients receiving Vitamin D2 supplementation, results that are subtherapeutic should be confirmed with another method such as LC-MS/MS. Free T4 1.02 0.71-1.85 ng/dL TSH 3rd Gen. 1.34 0.32-4.0 uIU/mL Assessment and Plan Assessment & Plan (1) Acquired hypothyroidism: Code(s): E03.9 - Hypothyroidism, unspecified Plan: Thyroid levels are within normal limits has not seen on recent lab done. Continue with levothyroxine 75 mcg daily in a.m. recheck levels again in 3 month (2) Dyslipidemia: Code(s): E78.5 - Hyperlipidemia, unspecified Plan: Reviewed recent fasting lipid profile with patient with levels at goal . Continue with atorvastatin 10 mg 3 times a week , in addition to adherence to low-cholesterol diet and regular exercise, at least 30 minutes 3 to 4 times a week. Advised patient to make healthy food choices, eat more fruits, ve getables, whole grains, wild caught fish and low-fat dairy. Limit amount of meat and fried or fatty food products, as well as processed foods and fast foods. Follow-up scheduled with repeat fasting lipid panel in 3 months. (3) Recurrent insomnia: Code(s): G47.00 - Insomnia, unspecified Plan: Continue doxepin 6 mg at bedtime Orders: Orders Thyroid Stimulating Hormone 12/04/23 Z78.0 - Asymptomatic menopausal state, E03.9 - Hypothyroidism, unspecified, E78.5 - Hyperlipidemia, unspecified Lipid Panel 12/04/23 Z78.0 - Asymptomatic menopausal state, E03.9 - Hypothyroidism, unspecified, E78.5 - Hyperlipidemia, unspecified Alanine Aminotransferase 12/04/23 Z78.0 - Asymptomatic menopausal state, E03.9 - Hypothyroidism, unspecified, E78.5 - Hyperlipidemia, unspecified Aspartate Amino Transferase 12/04/23 Z78.0 - Asymptomatic menopausal state, E03.9 - Hypothyroidism, unspecified, E78.5 - Hyperlipidemia, unspecified Free T4 (Free Thyroxine) 12/04/23 E03.9 - Hypothyroidism, unspecified, Z78.0 - Asymptomatic menopausal state, E78.5 - Hyperlipidemia, unspecified Vitamin D 25-OH Total 12/04/23 Z78.0 - Asymptomatic menopausal state, E03.9 - Hypothyroidism, unspecified, E78.5 - Hyperlipidemia, unspecified Medications: Refilled levothyroxine 75 mcg PO QAM 90 tabs 3RF Coding Level of Care Code Est Pt Level 4 (97935) Diagnoses Acquired hypothyroidism E03.9 Dyslipidemia E78.5 Recurrent insomnia G47.00
== END 2023-09-11 12:24 | disposition home or self-care (01) ==
PROVIDERS: PCP Internal Medicine; Visit Provider Internal Medicine
DX: E03.9 Hypothyroidism, unspecified (principal); E78.5 Hyperlipidemia, unspecified; G47.00 Insomnia, unspecified
CPT/HCPCS: 99214

== ENCOUNTER 2023-09-29 11:58 | Outpatient (AMB) | payer MEDICARE, SELFPAY ==
[2023-09-29 13:29] VITALS: BP 142/80; PULSE 87; TEMP 36.6; O2SAT 97; BMI 26.1
--- NOTE | 2023-09-29 13:29 | MHC.OFFWIV ---
Intake Vital Signs 09/29/23 13:29 Height 5 ft 5.5 in Weight 72.121 kg BMI 26.1 BP 142/80 H Blood Pressure Location Rt brachial Position Sitting Pulse 87 Pulse Source Pulse Oximeter Temp 97.9 F Temp Source Temporal Artery Scan Pulse Oximetry (%) 97 Intake Visit Reasons: EST/dizziness (lobby) Intake Note: pt is here for c/o dizziness today lasted a little over 5 min, concerned about whats causing the dizziness Patient Tobacco Use Status: Never used Tobacco Allergies amoxicillin Adverse Reaction (Unknown, Verified 09/29/23 13:30) yeast infection codeine Adverse Reaction (Unknown, Verified 09/29/23 13:30) vomiting Do you need a note to return to daycare/school/sports/work: Yes HPI HPI Comments History of Present Illness Details 1344 This is an 83-year-old female history of hypothyroidism, presenting for evaluation of an episode of lightheadedness that occurred earlier today. Patient reports she has been getting episodes of lightheadedness intermittently over the past few months, she thinks they started after her levothyroxine dose got adjusted and lowered however she is unsure. She says when she feels lightheaded she feels like she is going to pass out/feels faint however does not lose consciousness, and then she feels warm. She said today's episode lasted longer than most approximately 5 minutes, however now she feels fine, no complaints. NIH stroke scale 0 on arrival. Denies chest pain, shortness of breath, fevers, chills, recent illness, nausea, vomiting, abdominal pain, headache, vision changes, dizziness and weakness. Physical examination benign Will obtain TSH values to rule out thyroid issues, will obtain basic labs to rule out electrolyte abnormalities. Unlikely pulmonary embolism, ACS, dissection. Does not sound like vertigo 0 BPPV. Be secondary to dehydration/poor p.o. intake. Plan at this time labs, will call patient later with results. Educated patient on diagnosis and treatment plan, answered all question, patient verbalizes understanding. At this time patient will be discharged home, advised to return with new or worsening symptoms. Educated on worrisome signs and symptoms and when to return. At this time I feel comfortable discharge home. [facility] Medical History External hemorrhoids without complication Recurrent insomnia Postmenopause Anxiety disorder Menopause Osteopenia of multiple sites Dyslipidemia Ovarian cyst Migraine Esophagitis Acquired hypothyroidism Surgical History S/P dilatation of esophageal stricture History of salpingo-oophorectomy Family History Father Smoker Lung cancer Mother Multiple myeloma Social History Housing: House Alcohol intake: current Patient Tobacco Use Status: Never used Tobacco e-Cigarette/Vaping Use: Never Used Second Hand Smoke Exposure: No service: No Current occupational status: retired Cognitive needs: No Hearing needs: No Vision needs: Yes Review of Systems Const Details: Constitutional : No Weight loss, No Fever, No Chills, No Fatigue, No Malaise ENT/Mouth : No sore throat, No Rhinorrhea Eyes: No Eye Pain, No Swelling, No Redness Cardiovascular : No Chest Pain, No SOB, No Dyspnea on Exertion, No Orthopnea, No Edema, No Palpitations Respiratory : No Cough, No Sputum, No Wheezing Gastrointestinal : No Nausea, No Vomiting, No Diarrhea, No Constipation, No abdominal Pain, No Hematochezia, No Melena Genitourinary : No Dysuria, No Urinary Frequency, No Hematuria, Musculoskeletal : No joint pain, No Myalgias, No Joint Swelling Skin : No Skin Lesions, No rash Neuro : No Weakness, No Numbness, No Dizziness, No Headache Psych : No Anxiety/Panic, No Depression All other systems reviewed and are negative All systems reviewed & are unremarkable except as noted in HPI and below Physical Exam Vital Signs: Last Vital Signs Temp 97.9 F 09/29/23 13:29 Pulse 87 09/29/23 13:29 BP 142/80 H 09/29/23 13:29 Pulse Ox 97 09/29/23 13:29 BMI result Body Mass Index 26.1 vss Appearance: Alert.? Oriented X3.? No acute distress.? Head: Normocephalic, atraumatic, no step-offs or deformities Eyes: Pupils equal, round and reactive to light.? ENT: Pharynx normal.? Neck: Normal inspection.? Neck supple.? CVS: Normal heart rate and rhythm.? Pulses normal.? Respiratory: No respiratory distress.? Breath sounds normal.? Abdomen: Soft and nontender.? Skin: Skin warm and dry.? Normal skin color.? Normal skin turgor.? Extremities: No lower extremity edema.? No calf ttp. 5/5 strength to bilateral upper and lower extremities Neuro: Oriented X 3.? No motor deficit.? No sensory deficit. CN 2-12 intact . Normal [id number], [id number], steady tandem gait normal coordination. Assessment & Plan Assessment & Plan (1) Lightheaded: Code(s): R42 - Dizziness and giddiness Plan Take your medications as prescribed. If you were prescribed antibiotics today, it is important that you take your medication to their entirety, do not skip any doses, do not finish them early. Follow-up with your primary care provider this week. Return to the emergency department with new or worsening symptoms. Such as fevers, chills, chest pain, shortness of breath, nausea, vomiting, dizziness, headache, vision changes, lethargy In case of emergency call 911 Orders: Orders Complete Blood Count Auto Diff Today R42 - Dizziness and giddiness TSH reflex Free T4 Today R42 - Dizziness and giddiness AMB EKG-In Office Today R42 - Dizziness and giddiness Basic Metabolic Panel Today R42 - Dizziness and giddiness Coding Level of Care Code Est Pt Level 3 (67094) Diagnoses Lightheaded R42
== END 2023-09-29 14:51 | disposition home or self-care (01) ==
PROVIDERS: PCP Internal Medicine; Visit Provider Physician Assistant
DX: R42 Dizziness and giddiness (principal)
CPT/HCPCS: 99213

== ENCOUNTER 2023-09-29 14:52 | Outpatient (REF) | payer MEDICARE, SELFPAY ==
[2023-09-29 16:10] LABS: MANUAL DIFF FLAG NO
[2023-09-29 16:17] LABS: Basophils Absolute Auto 0.1 X10*3/uL (0.0-0.2); Basophils Percent Auto 1.3 % (0-2); Eosinophils Absolute Auto 0.2 X10*3/uL (0.0-0.4); Eosinophils Percent Auto 2.4 % (0-4); Hemoglobin 12.4 g/dl (12.0-16.0); Imm Gran Abs Auto 0.02 X10*3/uL (0.00-0.03); Imm Gran Pct Auto 0.3 % (0.0-0.4); Lymphocytes Absolute Auto 1.4 X10*3/uL (1.2-4.9); Lymphocytes Percent Auto 18.9 % (20-40); Mean Corpuscular HGB Conc 32.6 g/dl (31.0-35.0); Mean Corpuscular Hemoglobin 29.6 pg (27.0-33.0); Mean Corpuscular Volume 90.7 fL (80.0-98.0); Mean Platelet Volume 10.7 fL (9.4-12.3); Monocytes Absolute Auto 0.5 X10*3/uL (0.1-1.2); Monocytes Percent Auto 6.9 % (2-11); Neutrophils Percent Auto 70.2 % (45-73); Platelet Count 238 X10*3/uL (160-400); Red Blood Count 4.19 X10*6/uL (4.20-5.50); Red Cell Distribution Width 13.2 % (11.0-16.0); White Blood Count 7.1 X10*3/uL (4.8-10.8)
[2023-09-29 16:37] LABS: Anion Gap 11 (12-20); Blood Urea Nitrogen 13 mg/dL (9-16); Calcium 9.4 mg/dL (8.4-10.2); Carbon Dioxide 28 mmol/L (22-29); Chloride 107 mmol/L (96-108); Estimated Glomerular Filt Rate > 60; Glucose Random 89 mg/dL (60-115); Potassium 3.8 mmol/L (3.3-5.1); Sodium 142 mmol/L (135-145)
[2023-09-29 16:54] LABS: TSH reflex Free T4 0.52 uIU/mL (0.32-4.0)
== END 2023-09-29 14:53 | disposition home or self-care (01) ==
LOC: HO.HMGCLDS 14:52
PROVIDERS: PCP Internal Medicine; Visit Provider Physician Assistant
DX: R42 Dizziness and giddiness (principal); Z79.899 Other long term (current) drug therapy
CPT/HCPCS: 36415; 80048; 84443; 85025

== ENCOUNTER 2023-12-13 08:19 | Outpatient (AMB) | payer MEDICARE, SELFPAY ==
--- NOTE | 2023-12-13 08:25 | AM.OFFVISMDC ---
Intake Vital Signs 12/13/23 08:26 Height 5 ft 5.5 in Weight 162 lb BMI 26.5 BP 152/86 H Blood Pressure Location Lt brachial Position Sitting Pulse 83 Pulse Source Pulse Oximeter Pulse Oximetry (%) 96 Oxygen Delivery Method Room Air Comment w/ Rt leg boot Intake Visit Reasons: SWV G0439 Intake Note: Pt is here today for her SWV: last mammogram 05/11/23, bone density scan 04/28/21, colonoscopy 11/29/12 Allergies amoxicillin Adverse Reaction (Unknown, Verified 12/14/23 03:35) yeast infection codeine Adverse Reaction (Unknown, Verified 12/14/23 03:35) vomiting Medication List - Last Reconciled 12/14/23 by Clarice Boyce MD atorvastatin 10 mg PO DAILY cholecalciferol (vitamin D3) 25 mcg PO DAILY doxepin 6 mg PO BEDTIME fluticasone propionate 50 mcg/actuation 1 spray intranasal DAILY latanoprost 0.005% drps ophthalmic (eye) levothyroxine 75 mcg PO QAM lisinopril 5 mg PO DAILY lorazepam 0.5 mg PO DAILY PRN omeprazole 20 mg PO DAILY HPI SWV G0439 HPI Details SWV ? 83 year old ladt presents for her subsequent? Annual Wellness Visit.? She is up-to-date with her mammogram done 05/11/23, bone density scan 04/28/21 showed presence of osteopenia, due for repeat screening , and had her last colonoscopy 11/29/12, no further colonoscopy needed . She is up-to-date with all her vaccinations, except for the RSV which she does not want to get at present time. Last fasting lipids and fasting blood sugar check done showed results within normal limits. She already completed her MOLST form, already scanned in her medical record, has healthcare proxy in place, will bring copy on next visit ? Medical / Social History Reviewed? Past Medical History ?Yes . ? [place] of Care / Care Team list updated ?Yes . ? Surgical/Hospitalization History ?Yes . ? Current Medications (including OTC and supplements) ?Yes . ? Family History ?Yes . ? Tobacco Control form ?Yes . ? AUDIT-C (Alcohol use) form ?Yes . ? Illicit drug use in Social History ?Yes . ? Current diagnosis of depression? ?No ? Appropriate PHQ2/PHQ9 completed ?Yes . ? Data entered by ?[employer] and reviewed by provider ? Fall Risk ? Fall History? Have you had any falls with injury in the past year? ?No . ? Have you had two or more falls in the past year? ?No . ? Fall Risk Assessment: ?No falls in the past year . ? HRA filled out by the patient, reviewed by Provider and scanned. ? SWV ? Balance? [place] ?Yes . ? Tandem walk ?Yes . ? Walk and Turn ?Yes . ? Rise from sit to stand ?Yes . ?Vision? Corrective lens ?Yes ? Vision screen ? Up-to-date, sees Dr Smith ?Hearing? Whisper test ?pass . ?Written Plan?Completed. See Patient Documents.? HPI Comments History of Present Illness Details She has been checking her blood pressure at home and it has consistently been running from between 150-160 systolic over 90, does not complain of any headache, no chest pain, no shortness of breath or lightheadedness. Blood pressure at the clinic also has been running above normal. She has been following a healthy diet, stays active and walks for exercise. Unfortunately she sustained a stress fracture on her right foot recently, which prevents her from walking for now. Currently being seen by Dr. Hernandez at [facility] Medical History Stress fracture of right foot Essential hypertension External hemorrhoids without complication Recurrent insomnia Postmenopause Anxiety disorder Menopause Osteopenia of multiple sites Dyslipidemia Ovarian cyst Migraine Esophagitis Acquired hypothyroidism Surgical History S/P dilatation of esophageal stricture History of salpingo-oophorectomy Family History Father Smoker Lung cancer Mother Multiple myeloma Social History Housing: House Alcohol intake: current Patient Tobacco Use Status: Never used Tobacco e-Cigarette/Vaping Use: Never Used Second Hand Smoke Exposure: No service: No Current occupational status: retired Cognitive needs: No Hearing needs: No Vision needs: Yes Female Reproductive History Menstrual Menopause type: natural Date of Mammogram: 05/11/23 Date of last Bone Density Screenin04/28/21 Questionnaire Medicare Wellness Checkup What is your age?: 80 or older What gender do you identify with?: female During the past 4 weeks, how much have you been bothered by emotional problems such as feeling anxious, depressed, irritable, sad or downhearted, and blue?: not at all During the past 4 weeks, has your physical & emotional health limited your social activities with family, friends, neighbors, or groups?: slightly During the past 4 weeks, how much bodily pain have you generally had?: very mild pain During the past 4 weeks, was someone available to help you if you needed & wanted help?: yes, as much as I wanted During the past 4 weeks, what was the hardest physical activity you could do for at least 2 minutes?: moderate Can you get to places out of walking distance without help? (For eg., can you travel alone on buses, taxis or drive your car?): Yes Can you go shopping for groceries or clothes without someone's help?: Yes Can you prepare your own meals?: Yes Can you do your housework without help?: Yes Because of any health problems, do you need the help of another person with your personal care needs such as eating, bathing, dressing or getting around the house?: No Can you handle your own money without help?: Yes During the past 4 weeks, how would you rate your health in general?: good During the past 4 weeks how have things been going for you?: pretty well Are you having difficulties driving your car?: no Do you always fasten your seat belt when you are in a car?: yes, usually During past 4 weeks, have you been bothered by the following: never: Falling or dizzy when standing up, Sexual problems?, Trouble eating well?, Teeth or denture problems?, Problems using the telephone? and Tiredness or fatigue? Have you fallen 2 or more times in the past year?: No Are you afraid of falling?: No Are you a smoker?: no During the past 4 weeks, how many drinks of wine, beer, or other alcoholic beverages did you have?: no alcohol at all Do you exercise for about 20 minutes 3 or more times a week?: yes, most of the time Have you been given information to help with the following?: yes: Hazards in your house that might hurt you? and yes: Keeping track of your medications? How often do you have trouble taking medicines the way you have been told to take them?: I always take medicine as prescribed How confident are you that you can control & manage most of your health problems?: very confident What is your race?: White Mini Mental State Exam (MMSE) Orientation What is the (year) (season) (date) (day) (month)?: year (2023), season (Winter), date (12/13/2023), day (Monday) and month (November) Where are we (state) (county) (town or city) (hospital) (floor)?: state ([place]), county ([place]), town or city ([place]) and hospital/clinic ([facility]) Score Score: 9 Activity of Daily Living Bathing - sponge bath, tub bath or shower: receives no assistance (gets in/out by self, if usual bathing means Dressing - getting clothes from closets & drawers, including inner/outer garments & fasteners.: gets clothes & gets completely dressed without help Toileting - going to the 'toilet room' for urine/bowel elimination & cleaning self/arranging clothes: goes to toilet room, cleans self, arranges clothes without help Transfer: moves in & out of bed and chair without help (may use support object) Continence: controls urination/bowel movements completely by self Feeding: feeds self without help Total Score: 0 Information obtained from: patient Using telephone: independent Traveling: needs assistance (Unable to drive at present due to stress fracture right foot) Shopping: needs assistance Preparing meals: independent Housework: needs assistance Taking medicine: independent Managing money: independent PHQ-9 Over the last 2 weeks, how often have you been bothered by any of the following problems? 1. Little interest or pleasure in doing things: not at all 2. Feeling down, depressed, or hopeless: not at all 3. Trouble falling or staying asleep, or sleeping too much: several days 4. Feeling tired or having little energy: not at all 5. Poor appetite or overeating: not at all 6. Feeling bad about yourself - or that you are a failure or have let yourself or your family down: not at all 7. Trouble concentrating on things, such as reading the newspaper or watching television: not at all 8. Moving or speaking so slowly that other people could have noticed. Or the opposite - being so fidgety or restless that you have been moving around a lot more than usual: not at all 9. Thoughts that you would be better off or of hurting yourself in some way: not at all Total score: 1 Depression Screening Interpretation: Negative Depression Screening Done: Yes 16841 - PHQ-9 Billing: Yes Source: Developed by Drs. Stan L. EthanKika guerrero, Edward Rutherford and colleagues, with an educational cristian from [employer]. Review of Systems Const All systems reviewed & are unremarkable except as noted in HPI and below Card Reports no additional complaints Resp Reports no additional complaints Neuro Reports no additional complaints Physical Exam Vital Signs: Last Vital Signs Pulse 83 12/13/23 08:26 BP 152/86 H 12/13/23 08:26 Pulse Ox 96 12/13/23 08:26 Oxygen Delivery Method Room Air 12/13/23 08:26 BMI result Body Mass Index 26.5 Const General: comfortable and no acute distress Nutritional Appearance: underweight Orientation/consciousness: patient oriented x3 HEENT Head: Yes normocephalic Face and sinus: Yes face symmetric Neck Neck: Yes full ROM, Yes no lymphadenopathy and Yes supple Resp Effort & Inspection: normal respiratory effort and able to speak in complete sentences Auscultation: clear to auscultation bilaterally Cardio Rate: regular rate Rhythm: regular rhythm Heart sounds: S1 normal heart sound present and S2 normal heart sound present Neuro General: patient oriented x3 Extrem Other: Currently you wearing walking boot on right foot Results Reviewed Results Reviewed: ENTERED: 09/04/[address]: ORDERED: AST, ALT, Lipid Panel, Vitamin D 25-OH, Free T4, TSH Test Result Flag Reference AST (GOT) 19 5-31 U/L ALT (GPT) 12 0-31 U/L Triglyceride 87 <150 mg/dL Desirable Triglyceride: less than 150 mg/dL Borderline High Triglyceride 150-199 mg/dL High Triglyceride: 200-499 mg/dL Very High Triglyceride: greater than or equal to 5OO mg/dL Cholesterol 167 <200 mg/dL Desirable Cholesterol: less than 200 mg/dL Borderline High Cholesterol: 200-239 mg/dL High Cholesterol: greater than 239 mg/dL LDL Calculated 95 <100 mg/dL Desirable LDL: less than 100 mg/dL Near Optimal/Above Optimal LDL: 110-129 mg/dL Borderline High LDL: 130-159 mg/dL High LDL: 160-189 mg/dL Very High LDL: greater than or equal to 190 mg/dL HDL 55 >40 mg/dL Desirable HDL: greater than 40 mg/dL Note: This HDL assay may give artificially low results in patients with liver disease. Vit D 25-OH Tot 79.0 >30 ng/mL Health Based Reference Values* < 20 ng/mL Deficient 20-30 ng/mL Insufficient > 30 ng/mL Sufficient *Jeanie WELLS. N Engl J Med. 2007;[id number]:266-280 Care must be taken in interpreting Vitamin D results from different laboratories and methodologies. Published data demonstrated that results from patients undergoing hemodialysis may show a negative bias when tested with various automated 25-OH vitamin D assays when compared to LC-MS/MS. When testing samples from patients whose predominant form of Vitamin D is Vitamin D2, such as patients receiving Vitamin D2 supplementation, results that are subtherapeutic should be confirmed with another method such as LC-MS/MS. Free T4 1.02 0.71-1.85 ng/dL TSH 3rd Gen. 1.34 0.32-4.0 uIU/mL ENTERED: 09/29/[address]: Clarice Boyce MD ORDERED: BMP, TSH Rflx Test Result Flag Reference Sodium 142 135-145 mmol/L Potassium 3.8 3.3-5.1 mmol/L CL 107 96-108 mmol/L CO2 28 22-29 mmol/L Gap 11 L 12-20 BUN 13 9-16 mg/dL Creat 0.75 0.5-1.4 mg/dL EGFR > 60 NOTE: For -[place] individuals, multiply the result by 1.210. Chronic Kidney Disease: Estimated GFR < 60 mL/min/1.73m2 Severe Kidney Disease: Estimated GFR < 15 mL/min/1.73m2 Glucose, Random 89 60-115 mg/dL CA 9.4 8.4-10.2 mg/dL TSH 0.52 0.32-4.0 uIU/mL Assessment & Plan Assessment & Plan (1) Encounter for subsequent annual wellness visit (AWV) in Medicare patient: Code(s): Z00.00 - Encounter for general adult medical examination without abnormal findings Plan: Medical wellness checklist reviewed, discussed with patient and updated. Currently up-to-date with her screening, ordered bone density scan to be done together with her mammogram later this year. No longer needing colonoscopy or cervical cancer screening. Up-to-date with all her vaccines. Patient has already a MOLST form completed and scanned to chart, will give a copy of healthcare proxy on her next visit (2) Recurrent insomnia: Code(s): G47.00 - Insomnia, unspecified Plan: Takes doxepin as needed for episodes of insomnia (3) Essential hypertension: Code(s): I10 - Essential (primary) hypertension Plan: Blood pressure running higher above 140/90, started on lisinopril 5 mg 1 tablet once a day in a.m.. Blood pressure goal is less than 130/80. Reinforced importance of following a low sodium diet, getting regular exercise once cleared by podiatry , and lowering stress levels. (4) Osteopenia of multiple sites: Code(s): M85.89 - Other specified disorders of bone density and structure, multiple sites Plan: Ordered a repeat bone density scan, to be scheduled together with her mammogram (5) Acquired hypothyroidism: Code(s): E03.9 - Hypothyroidism, unspecified Plan: Thyroid levels are within normal limits, continue with current dose of levothyroxine (6) Dyslipidemia: Code(s): E78.5 - Hyperlipidemia, unspecified Plan: Last fasting lipids are showing results within normal limits, continue atorvastatin 10 mg daily (7) Stress fracture, right foot, sequela: Code(s): M84.374S - Stress fracture, right foot, sequela Plan: Currently right foot encased in a walking boot. Followed by Dr. Schuster at [facility] Orders: Orders MM tomosynthesis screening BI 12/13/23 M84.374S - Stress fracture, right foot, sequela, Z12.31 - Encounter for screening mammogram for malignant neoplasm of breast, Z78.0 - Asymptomatic menopausal state XR DEXA axial skeleton 12/13/23 M84.374S - Stress fracture, right foot, sequela, M85.89 - Other specified disorders of bone density and structure, multiple sites, Z78.0 - Asymptomatic menopausal state Medications: New lisinopril 5 mg PO DAILY 30 tabs 1RF Quality Reporting (2019) Depression/Bipolar (159/160/161/177) PHQ-9: Total score: 1 Coding Level of Care Code Medicare Subsequent (G0439) Est Pt Level 3 (73057) Diagnoses Encounter for subsequent annual wellness visit (AWV) in Medicare patient Z00.00 Recurrent insomnia G47.00 Essential hypertension I10 Osteopenia of multiple sites M85.89 Acquired hypothyroidism E03.9 Dyslipidemia E78.5 Stress fracture, right foot, sequela M84.374S CPT Codes Advance Care Planning - Advance Care Planning discussion: On file, no changes ([id number]) Advance Care Planning - Time spent: 1-15 minutes, on File ([id number]) Advance Care Planning Advance Care Planning discussion: On file, no changes Date of discussion: 12/13/23 Who was present: Patient Forms completed: SRUTHI Time spent: 1-15 minutes, on File Actual minutes spent: 15
[2023-12-13 08:26] VITALS: BP 152/86; PULSE 83; O2SAT 96; BMI 26.5
== END 2023-12-13 09:19 | disposition home or self-care (01) ==
PROVIDERS: PCP Internal Medicine; Visit Provider Internal Medicine
DX: Z00.00 Encounter for general adult medical examination without abnormal findings (principal); M84.374A Stress fracture, right foot, initial encounter for fracture; I10 Essential (primary) hypertension; G47.00 Insomnia, unspecified; M85.89 Other specified disorders of bone density and structure, multiple sites; E78.5 Hyperlipidemia, unspecified; E03.9 Hypothyroidism, unspecified
CPT/HCPCS: 1123F; 99213; G0439

== ENCOUNTER 2024-01-02 09:12 | Outpatient (REF) | payer MEDICARE, SELFPAY ==
[2024-01-02 11:49] LABS: Alanine Aminotransferase 11 U/L (0-31); Aspartate Amino Transferase 17 U/L (5-31); Cholesterol 173 mg/dL (<200); HDL Cholesterol 53 mg/dL (>40); LDL Cholesterol Calculated 104 mg/dL (<100); Triglycerides 81 mg/dL (<150)
[2024-01-02 12:20] LABS: Thyroid Stimulating Hormone 0.76 uIU/mL (0.32-4.0); Vitamin D 25-OH Total 79.9 ng/mL (>30)
== END 2024-01-02 09:13 | disposition home or self-care (01) ==
LOC: HO.HMGCLDS 09:12
PROVIDERS: PCP Internal Medicine; Visit Provider Internal Medicine
DX: E03.9 Hypothyroidism, unspecified (principal); E78.5 Hyperlipidemia, unspecified; Z78.0 Asymptomatic menopausal state
CPT/HCPCS: 36415; 80061; 82306; 84439; 84443; 84450; 84460

== ENCOUNTER 2024-01-08 08:55 | Outpatient (AMB) | payer MEDICARE, SELFPAY ==
[2024-01-08 09:10] VITALS: BP 142/62; PULSE 78; O2SAT 97; BMI 26.1
--- NOTE | 2024-01-08 09:10 | MHC.PC.OV ---
Vital Signs 01/08/24 09:10 Height 5 ft 5.5 in Weight 159 lb BMI 26.1 BP 142/62 H Blood Pressure Location Lt brachial Position Sitting Pulse 78 Pulse Source Pulse Oximeter Pulse Oximetry (%) 97 Oxygen Delivery Method Room Air Intake Visit Reasons: 1 months f/u labs Intake Note: Pt is here today for her lab results Allergies amoxicillin Adverse Reaction (Unknown, Verified 01/08/24 09:35) yeast infection codeine Adverse Reaction (Unknown, Verified 01/08/24 09:35) vomiting Medication List - Last Reconciled 01/08/24 by Clarice Boyce MD atorvastatin 10 mg PO MOWEFR butterbur root extract 50 mg PO DAILY cetirizine (Zyrtec) 10 mg PO DAILY PRN cholecalciferol (vitamin D3) 25 mcg PO DAILY doxepin 6 mg PO BEDTIME PRN latanoprost 0.005% drps ophthalmic (eye) levothyroxine 75 mcg PO QAM lisinopril 20 mg PO DAILY lorazepam 0.5 mg PO DAILY PRN omeprazole 20 mg PO DAILY Tobacco use date assessed: 09/13/23 Fall risk assessment: No Falls in past year Last assessed Fall Risk: 01/08/24 Dental Screening Dental Screen Date: 01/08/24 Did you have a dental visit in the last 12 months?: Yes Did you have a dental problem in the last 6 months where you did not have access to dental care?: Yes Was dental information given to patient?: Patient has dentist HPI 1 months f/u labs HPI Details 83-year-old lady with hypertension, hyperlipidemia as well as hypothyroidism, here today for her follow-up. She has been compliant with taking her medications. Blood pressure improving. Had recent fasting labs done which showed lipids, liver enzymes, vitamin-D and thyroid levels within normal limits. [facility] Medical History (Updated 01/08/24 @ 09:58 by Clarice Boyce MD) Stress fracture of right foot Essential hypertension External hemorrhoids without complication Recurrent insomnia Postmenopause Anxiety disorder Menopause Osteopenia of multiple sites Dyslipidemia Ovarian cyst Migraine Esophagitis Acquired hypothyroidism Surgical History S/P dilatation of esophageal stricture History of salpingo-oophorectomy Family History Father Smoker Lung cancer Mother Multiple myeloma Social History Housing: House Alcohol intake: current Patient Tobacco Use Status: Never used Tobacco e-Cigarette/Vaping Use: Never Used Second Hand Smoke Exposure: No service: No Current occupational status: retired Cognitive needs: No Hearing needs: No Vision needs: Yes Questionnaire PHQ-9 Over the last 2 weeks, how often have you been bothered by any of the following problems? 1. Little interest or pleasure in doing things: not at all 2. Feeling down, depressed, or hopeless: not at all 3. Trouble falling or staying asleep, or sleeping too much: not at all 4. Feeling tired or having little energy: not at all 5. Poor appetite or overeating: not at all 6. Feeling bad about yourself - or that you are a failure or have let yourself or your family down: not at all 7. Trouble concentrating on things, such as reading the newspaper or watching television: not at all 8. Moving or speaking so slowly that other people could have noticed. Or the opposite - being so fidgety or restless that you have been moving around a lot more than usual: not at all 9. Thoughts that you would be better off or of hurting yourself in some way: not at all Total score: 0 Depression Screening Interpretation: Negative Depression Screening Done: Yes 32871 - PHQ-9 Billing: Yes Source: Developed by Drs. Stan Long, Kika Will, Edward Rutherford and colleagues, with an educational cristian from [employer]. Thrive Questionnaire Date Thrive assessed: 01/08/24 I am a: Patient What is your living situation today?: I have a steady place to live Within the past 12 months, did the food you bought not last and you didn't have the money to get more?: Never true Within the past 12 months, did you worry whether your food would run out before you got money to buy more?: Never true Do you have trouble paying for medicines?: No Do you have trouble getting transportation to medical appointments?: No Do you have trouble paying your heating and electricity bill?: No Do you have trouble taking care of your child, family member or friend?: No Do you have trouble with day-to-day activities such as bathing, preparing meals, shopping, managing finances, etc.?: No Are you currently unemployed and looking for a job?: No Are you interested in more education?: No THRIVE Score: 0 AUDIT C Alcohol Use Questionnaire (AUDIT-C) 1. How often do you have a drink containing alcohol?: Never Total Score: 0 FREDRICK-7 AMB Questionnaire FREDRICK-7 Date FREDRICK - 7 assessed: 01/08/24 Feeling nervous, anxious, or on edge: 0 = Not at all Not being able to stop or control worryin = Not at all Worrying too much about different things: 0 = Not at all Trouble relaxin = Not at all Being so restless that it is hard to sit still: 0 = Not at all Becoming easily annoyed or irritable: 0 = Not at all Feeling afraid as if something awful might happen: 0 = Not at all Total FREDRICK-7 score (0-4 normal; 5-9 mild; 10-14 moderate; 15-21 severe): 0 Source: Developed by Drs. Stan Long, Kika Will, Edward Rutherford and colleagues, with an educational cristian from [employer]. FREDRICK-7 Assessment Billing FREDRICK-7 Assessment Tool: FREDRICK-7 Assessment 23586 Review of Systems Const Denies body aches, Denies fatigue, Denies fever(s) and Denies weakness Eyes Details: sees Dr Smith Reports no additional complaints Card Denies chest pain, Denies lightheadedness, Denies palpitations and Denies dyspnea Resp Denies chest congestion, Denies cough and Denies dyspnea GI Denies abdominal pain, Denies change in bowel habits and Denies heartburn Reports no additional complaints Musc Reports no additional complaints Skin/Breast Details: sees Dr Hill Neuro Denies weakness Endo Denies fatigue, Denies polydipsia, Denies polyuria and Denies palpitations Aller/Immun Reports no additional complaints Physical exam (Primary Care) Vital Signs: Last Vital Signs Pulse 78 01/08/24 09:10 BP 142/62 H 01/08/24 09:10 Pulse Ox 97 01/08/24 09:10 Oxygen Delivery Method Room Air 01/08/24 09:10 BMI result Body Mass Index 26.1 Tobacco/Smoking Status: Tobacco use Status Tobacco use date assessed 09/13/23 01/08/24 09:14 Patient Tobacco Use Status Never used Tobacco 01/08/24 09:10 e-Cigarette/Vaping Use Never Used 01/08/24 09:10 PHQ-9: PHQ-9 Score PHQ-9: Total score 0 01/09/24 01:18 Depression Screening Interpretation: Negative Thrive Assessment: Date of Thrive Assessment Date Thrive assessed 01/08/24 01/08/24 09:19 Const Other: Alert oriented x3, no acute cardiorespiratory distress, ambulatory with normal gait HENWA Mouth: Normal oral and palatal mucosa present, oropharynx normal and moist mucous membranes Eyes General: appearance normal, both eyes and all related structures Neck Other: Supple, no lymphadenopathy, thyroid gland nonpalpable Resp Other: Clear to auscultation bilaterally Cardio Other: S1-S2 present, regular rate and rhythm GI Inspection: Yes normal to inspection Palpation (GI): Soft to palpation, nontender, no guarding and no masses Auscultation: normal bowel sounds Neuro General: gait normal, moves all extremities and no focal motor deficits Extrem General: Yes full ROM, Yes no joint enlargement, Yes no clubbing, cyanosis or edema and Yes normal gait Results Reviewed Results Reviewed: ENTERED: 01/02/24 LAM KELLER: ORDERED: AST, ALT, Lipid Panel, Vitamin D 25-OH, Free T4, TSH Test Result Flag Reference AST (GOT) 17 5-31 U/L ALT (GPT) 11 0-31 U/L Triglyceride 81 <150 mg/dL Desirable Triglyceride: less than 150 mg/dL Borderline High Triglyceride 150-199 mg/dL High Triglyceride: 200-499 mg/dL Very High Triglyceride: greater than or equal to 5OO mg/dL Cholesterol 173 <200 mg/dL Desirable Cholesterol: less than 200 mg/dL Borderline High Cholesterol: 200-239 mg/dL High Cholesterol: greater than 239 mg/dL LDL Calculated 104 H <100 mg/dL Desirable LDL: less than 100 mg/dL Near Optimal/Above Optimal LDL: 110-129 mg/dL Borderline High LDL: 130-159 mg/dL High LDL: 160-189 mg/dL Very High LDL: greater than or equal to 190 mg/dL HDL 53 >40 mg/dL Desirable HDL: greater than 40 mg/dL Note: This HDL assay may give artificially low results in patients with liver disease. Vit D 25-OH Tot 79.9 >30 ng/mL Health Based Reference Values* < 20 ng/mL Deficient 20-30 ng/mL Insufficient > 30 ng/mL Sufficient *Jeanie WELLS. N Engl J Med. 2007;[id number] Care must be taken in interpreting Vitamin D results from different laboratories and methodologies. Published data demonstrated that results from patients undergoing hemodialysis may show a negative bias when tested with various automated 25-OH vitamin D assays when compared to LC-MS/MS. When testing samples from patients whose predominant form of Vitamin D is Vitamin D2, such as patients receiving Vitamin D2 supplementation, results that are subtherapeutic should be confirmed with another method such as LC-MS/MS. Free T4 1.10 0.71-1.85 ng/dL TSH 3rd Gen. 0.76 0.32-4.0 uIU/mL TSH 3rd Generation ([facility]) Assessment and Plan Assessment & Plan (1) Essential hypertension: Code(s): I10 - Essential (primary) hypertension Plan: Blood pressure at goal of less than 130/80. Continue with current medication. Reinforced importance of following a low sodium diet, getting regular exercise, and lowering stress levels. (2) Recurrent insomnia: Code(s): G47.00 - Insomnia, unspecified Plan: Take doxepin 6 mg 1 tablet at bedtime as needed (3) Osteopenia of multiple sites: Code(s): M85.89 - Other specified disorders of bone density and structure, multiple sites Plan: Continue with doing regular weight-bearing exercise, taking adequate calcium from dietary sources and vitamin-D 3 supplement 25 mcg daily (4) Acquired hypothyroidism: Code(s): E03.9 - Hypothyroidism, unspecified Plan: Thyroid levels are within normal limits, continue with current dose of levothyroxine 75 mcg daily in a.m. 1 hour before breakfast (5) Dyslipidemia: Code(s): E78.5 - Hyperlipidemia, unspecified Plan: Reviewed recent fasting lipid profile with patient with levels within normal limits continue with atorvastatin 10 mg taken 1 tablet 3 times a week , in addition to adherence to low-cholesterol diet and regular exercise, at least 30 minutes 3 to 4 times a week. Advised patient to make healthy food choices, eat more fruits, vegetables, whole grains, wild caught fish and low-fat dairy. Limit amount of meat and fried or fatty food products, as well as processed foods and fast foods. Follow-up scheduled with repeat fasting lipid panel in 3 months. Orders: Orders Alanine Aminotransferase 04/15/24 E03.9 - Hypothyroidism, unspecified, E78.5 - Hyperlipidemia, unspecified, I10 - Essential (primary) hypertension, M85.89 - Other specified disorders of bone density and structure, multiple sites, Z78.0 - Asymptomatic menopausal state Aspartate Amino Transferase 04/15/24 E03.9 - Hypothyroidism, unspecified, E78.5 - Hyperlipidemia, unspecified, I10 - Essential (primary) hypertension, M85.89 - Other specified disorders of bone density and structure, multiple sites, Z78.0 - Asymptomatic menopausal state Basic Metabolic Panel Fasting 04/15/24 E03.9 - Hypothyroidism, unspecified, E78.5 - Hyperlipidemia, unspecified, I10 - Essential (primary) hypertension, M85.89 - Other specified disorders of bone density and structure, multiple sites, Z78.0 - Asymptomatic menopausal state Lipid Panel 04/15/24 E03.9 - Hypothyroidism, unspecified, E78.5 - Hyperlipidemia, unspecified, I10 - Essential (primary) hypertension, M85.89 - Other specified disorders of bone density and structure, multiple sites, Z78.0 - Asymptomatic menopausal state Vitamin D 25-OH Total 04/15/24 E03.9 - Hypothyroidism, unspecified, E78.5 - Hyperlipidemia, unspecified, I10 - Essential (primary) hypertension, M85.89 - Other specified disorders of bone density and structure, multiple sites, Z78.0 - Asymptomatic menopausal state Free T4 (Free Thyroxine) 04/15/24 E03.9 - Hypothyroidism, unspecified, E78.5 - Hyperlipidemia, unspecified, I10 - Essential (primary) hypertension, M85.89 - Other specified disorders of bone density and structure, multiple sites, Z78.0 - Asymptomatic menopausal state Thyroid Stimulating Hormone 04/15/24 E03.9 - Hypothyroidism, unspecified, E78.5 - Hyperlipidemia, unspecified, I10 - Essential (primary) hypertension, M85.89 - Other specified disorders of bone density and structure, multiple sites, Z78.0 - Asymptomatic menopausal state Medications: Changed From lisinopril 10 mg PO DAILY 90 tabs 1RF To lisinopril 20 mg PO DAILY Coding Level of Care Code Est Pt Level 4 (17897) Diagnoses Essential hypertension I10 Recurrent insomnia G47.00 Osteopenia of multiple sites M85.89 Acquired hypothyroidism E03.9 Dyslipidemia E78.5 Additional Codes FREDRICK-7 Assessment Billing - FREDRICK-7 Assessment Tool: FREDRICK-7 Assessment 97857 ([id number])
== END 2024-01-08 16:01 | disposition home or self-care (01) ==
PROVIDERS: PCP Internal Medicine; Visit Provider Internal Medicine
DX: I10 Essential (primary) hypertension (principal); G47.00 Insomnia, unspecified; M85.89 Other specified disorders of bone density and structure, multiple sites; E03.9 Hypothyroidism, unspecified; E78.5 Hyperlipidemia, unspecified
CPT/HCPCS: 99214

== ENCOUNTER 2024-05-06 07:36 | Outpatient (REF) | payer MEDICARE, SELFPAY ==
[2024-05-06 13:08] LABS: Alanine Aminotransferase 10 U/L (0-31); Anion Gap 11 (12-20); Aspartate Amino Transferase 19 U/L (5-31); Blood Urea Nitrogen 10 mg/dL (9-16); Calcium 9.4 mg/dL (8.4-10.2); Carbon Dioxide 29 mmol/L (22-29); Chloride 104 mmol/L (96-108); Cholesterol 148 mg/dL (<200); Estimated Glomerular Filt Rate > 60; Glucose Fasting 87 mg/dL (60-99); HDL Cholesterol 50 mg/dL (>40); LDL Cholesterol Calculated 81 mg/dL (<100); Sodium 140 mmol/L (135-145); Triglycerides 85 mg/dL (<150)
[2024-05-06 13:29] LABS: Free T4 (Free Thyroxine) 1.22 ng/dL (0.71-1.85); Thyroid Stimulating Hormone 0.49 uIU/mL (0.32-4.0); Vitamin D 25-OH Total 66.6 ng/mL (>30)
== END 2024-05-06 07:37 | disposition home or self-care (01) ==
LOC: HO.HMGCLDS 07:36
PROVIDERS: PCP Internal Medicine; Visit Provider Internal Medicine
DX: I10 Essential (primary) hypertension (principal); Z78.0 Asymptomatic menopausal state; M85.89 Other specified disorders of bone density and structure, multiple sites; E03.9 Hypothyroidism, unspecified; E78.5 Hyperlipidemia, unspecified
CPT/HCPCS: 36415; 80048; 80061; 82306; 84439; 84443; 84450; 84460

== ENCOUNTER 2024-05-08 10:46 | Outpatient (AMB) | payer MEDICARE, SELFPAY ==
[2024-05-08 10:51] VITALS: BP 120/64; PULSE 72; O2SAT 94; BMI 25.7
--- NOTE | 2024-05-08 10:51 | A.OFFPC_ITS ---
Vital Signs 05/08/24 10:51 Height 5 ft 5.5 in Weight 157 lb BMI 25.7 BP 120/64 Blood Pressure Location Rt brachial Position Sitting Pulse 72 Pulse Source Pulse Oximeter Pulse Oximetry (%) 94 Oxygen Delivery Method Room Air Intake Visit Reasons: follow up Intake Note: Pt is here today to f/u lipids & thyriod Allergies amoxicillin Adverse Reaction (Unknown, Verified 05/08/24 11:25) yeast infection codeine Adverse Reaction (Unknown, Verified 05/08/24 11:25) vomiting Medication List - Last Reconciled 05/08/24 by Clarice Boyce MD atorvastatin 10 mg PO MOWEFR butterbur root extract 50 mg PO DAILY cetirizine (Zyrtec) 10 mg PO DAILY PRN cholecalciferol (vitamin D3) 25 mcg PO DAILY doxepin 6 mg PO BEDTIME PRN latanoprost 0.005% drps ophthalmic (eye) levothyroxine 75 mcg PO QAM lisinopril 20 mg (2 x 10 mg) PO DAILY lorazepam 0.5 mg PO DAILY PRN omeprazole 20 mg PO DAILY Tobacco use date assessed: 05/08/24 Fall risk assessment: No Falls in past year Last assessed Fall Risk: 05/08/24 Dental Screening Dental Screen Date: 05/08/24 Did you have a dental visit in the last 12 months?: Yes Did you have a dental problem in the last 6 months where you did not have access to dental care?: No Was dental information given to patient?: Patient has dentist HPI follow up HPI Details 84-year-old lady with dyslipidemia, hype rthyroidism, here today for follow-up. Had recent fasting labs done which electrolytes, fasting glucose, lipids and vitamin-D levels all within normal limits. [facility] Medical History Stress fracture of right foot Essential hypertension External hemorrhoids without complication Recurrent insomnia Postmenopause Anxiety disorder Menopause Osteopenia of multiple sites Dyslipidemia Ovarian cyst Migraine Esophagitis Acquired hypothyroidism Surgical History S/P dilatation of esophageal stricture History of salpingo-oophorectomy Family History Father Smoker Lung cancer Mother Multiple myeloma Social History Housing: House Alcohol intake: current Patient Tobacco Use Status: Never used Tobacco e-Cigarette/Vaping Use: Never Used Second Hand Smoke Exposure: No service: No Current occupational status: retired Cognitive needs: No Hearing needs: No Vision needs: Yes Questionnaire PHQ-9 Over the last 2 weeks, how often have you been bothered by any of the following problems? Depression Screening Interpretation: Negative Depression Screening Done: Yes Source: Developed by Drs. Stan Long, Kika Will, Edward Rutherford and colleagues, with an educational cristian from [employer]. Thrive Questionnaire Date Thrive assessed: 01/08/24 FREDRICK-7 AMB Questionnaire FREDRICK-7 Date FREDRICK - 7 assessed: 01/08/24 Source: Developed by Drs. Stan Long, Kika Will, Edward Rutherford and colleagues, with an educational cristian from [employer]. Review of Systems Const Denies body aches, Denies fatigue, Denies fever(s) and Denies weakness Eyes Details: sees Dr Smith Reports no additional complaints Card Denies chest pain, Denies lightheadedness, Denies palpitations and Denies dyspnea Resp Denies chest congestion, Denies cough and Denies dyspnea GI Denies abdominal pain, Denies change in bowel habits and Denies heartburn Reports no additional complaints Musc Reports no additional complaints Skin/Breast Details: sees Dr Hill Neuro Denies weakness Endo Denies fatigue, Denies polydipsia, Denies polyuria and Denies palpitations Aller/Immun Reports no additional complaints Physical exam (Primary Care) Vital Signs: Last Vital Signs Pulse 72 05/08/24 10:51 BP 120/64 05/08/24 10:51 Pulse Ox 94 05/08/24 10:51 Oxygen Delivery Method Room Air 05/08/24 10:51 BMI result Body Mass Index 25.7 Tobacco/Smoking Status: Tobacco use Status Tobacco use date assessed 05/08/24 05/08/24 10:53 Patient Tobacco Use Status Never used Tobacco 05/08/24 10:53 e-Cigarette/Vaping Use Never Used 05/08/24 10:53 Depression Screening Interpretation: Negative Thrive Assessment: Date of Thrive Assessment Date Thrive assessed 01/08/24 05/08/24 10:53 Const Other: Alert oriented x3, no acute cardiorespiratory distress, ambulatory with normal gait HENAZ Mouth: Normal oral and palatal mucosa present, oropharynx normal and moist mucous membranes Eyes General: appearance normal, both eyes and all related structures Neck Other: Supple, no lymphadenopathy, thyroid gland nonpalpable Resp Other: Clear to auscultation bilaterally Cardio Other: S1-S2 present, regular rate and rhythm GI Inspection: Yes normal to inspection Palpation (GI): Soft to palpation, nontender, no guarding and no masses Auscultation: normal bowel sounds Neuro General: gait normal, moves all extremities and no focal motor deficits Extrem General: Yes full ROM, Yes no joint enlargement, Yes no clubbing, cyanosis or edema and Yes normal gait Results Reviewed Results Reviewed: Name: Dodie Watson Age/Sex: 84/F : 1940 Unit#: [id number] Attend Dr: Clarice Boyce MD Re05/06/24 Status: DEP [facility] SPEC : [id number] SHELLI: 05/06/24 STATUS: COMP REQ : [id number] RECD: 05/06/24-[address]: Clarice Boyce MD COMP: 05/06/24 ENTERED: 05/06/[address]: ORDERED: Met Prof Fast, AST, ALT, Lipid Panel, Vitamin D 25-OH, Free T4, TSH Test Result Flag Reference Sodium 140 135-145 mmol/L Potassium 4.0 3.3-5.1 mmol/L CL 104 96-108 mmol/L CO2 29 22-29 mmol/L Gap 11 L 12-20 BUN 10 9-16 mg/dL Creat 0.85 0.5-1.4 mg/dL EGFR > 60 NOTE: For -[place] individuals, multiply the result by 1.210. Chronic Kidney Disease: Estimated GFR < 60 mL/min/1.73m2 Severe Kidney Disease: Estimated GFR < 15 mL/min/1.73m2 FBS 87 60-99 mg/dL CA 9.4 8.4-10.2 mg/dL AST (GOT) 19 5-31 U/L ALT (GPT) 10 0-31 U/L Triglyceride 85 <150 mg/dL Desirable Triglyceride: less than 150 mg/dL Borderline High Triglyceride 150-199 mg/dL High Triglyceride: 200-499 mg/dL Very High Triglyceride: greater than or equal to 5OO mg/dL Cholesterol 148 <200 mg/dL Desirable Cholesterol: less than 200 mg/dL Borderline High Cholesterol: 200-239 mg/dL High Cholesterol: greater than 239 mg/dL LDL Calculated 81 <100 mg/dL Desirable LDL: less than 100 mg/dL Near Optimal/Above Optimal LDL: 110-129 mg/dL Borderline High LDL: 130-159 mg/dL High LDL: 160-189 mg/dL Very High LDL: greater than or equal to 190 mg/dL HDL 50 >40 mg/dL Desirable HDL: greater than 40 mg/dL Note: This HDL assay may give artificially low results in patients with liver disease. Vit D 25-OH Tot 66.6 >30 ng/mL Health Based Reference Values* < 20 ng/mL Deficient 20-30 ng/mL Insufficient > 30 ng/mL Sufficient *Jeanie WELLS. N Engl J Med. 2007;[id number] Care must be taken in interpreting Vitamin D results from different laboratories and methodologies. Published data demonstrated that results from patients undergoing hemodialysis may show a negative bias when tested with various automated 25-OH vitamin D assays when compared to LC-MS/MS. When testing samples from patients whose predominant form of Vitamin D is Vitamin D2, such as patients receiving Vitamin D2 supplementation, results that are subtherapeutic should be confirmed with another method such as LC-MS/MS. Free T4 1.22 0.71-1.85 ng/dL TSH 3rd Gen. 0.49 0.32-4.0 uIU/mL TSH 3rd Generation ([facility]) Assessment and Plan Assessment & Plan (1) Acquired hypothyroidism: Code(s): E03.9 - Hypothyroidism, unspecified Plan: Recent thyroid levels are within normal limits, continue with current dose of levothyroxine 75 mcg taken once a day in a.m. an hour before breakfast. (2) Dyslipidemia: Code(s): E78.5 - Hyperlipidemia, unspecified Plan: Recent fasting lipids showed results within normal limits, continued on atorvastatin 10 mg taken 3 times a week. Reinforced importance of following healthy diet and getting regular exercise. (3) Osteopenia of multiple sites: Code(s): M85.89 - Other specified disorders of bone density and structure, multiple sites Plan: Continue with taking vitamin-D 3 supplements, take adequate calcium from dietary sources and stressed importance of doing regular weight-bearing exercise. (4) Essential hypertension: Code(s): I10 - Essential (primary) hypertension Plan: Blood pressure at goal of less than 130/80. Continue with lisinopril 20 mg daily. Reinforced importance of following a low sodium diet, getting regular exercise, and lowering stress levels. Orders: Orders Basic Metabolic Panel Fasting 09/13/24 I10 - Essential (primary) hypertension, Z78.0 - Asymptomatic menopausal state, M85.89 - Other specified disorders of bone density and structure, multiple sites, E03.9 - Hypothyroidism, unspecified, E78.5 - Hyperlipidemia, unspecified Lipid Panel 09/13/24 I10 - Essential (primary) hypertension, Z78.0 - Asymptomatic menopausal state, M85.89 - Other specified disorders of bone density and structure, multiple sites, E03.9 - Hypothyroidism, unspecified, E78.5 - Hyperlipidemia, unspecified Alanine Aminotransferase 09/13/24 I10 - Essential (primary) hypertension, Z78.0 - Asymptomatic menopausal state, M85.89 - Other specified disorders of bone density and structure, multiple sites, E03.9 - Hypothyroidism, unspecified, E78.5 - Hyperlipidemia, unspecified Aspartate Amino Transferase 09/13/24 I10 - Essential (primary) hypertension, Z78.0 - Asymptomatic menopausal state, M85.89 - Other specified disorders of bone density and structure, multiple sites, E03.9 - Hypothyroidism, unspecified, E78.5 - Hyperlipidemia, unspecified Thyroid Stimulating Hormone 09/13/24 I10 - Essential (primary) hypertension, Z78.0 - Asymptomatic menopausal state, M85.89 - Other specified disorders of bone density and structure, multiple sites, E03.9 - Hypothyroidism, unspecified, E78.5 - Hyperlipidemia, unspecified Free T4 (Free Thyroxine) 09/13/24 I10 - Essential (primary) hypertension, Z78.0 - Asymptomatic menopausal state, M85.89 - Other specified disorders of bone density and structure, multiple sites, E03.9 - Hypothyroidism, unspecified, E78.5 - Hyperlipidemia, unspecified Vitamin D 25-OH Total 09/13/24 I10 - Essential (primary) hypertension, Z78.0 - Asymptomatic menopausal state, M85.89 - Other specified disorders of bone density and structure, multiple sites, E03.9 - Hypothyroidism, unspecified, E78. 5 - Hyperlipidemia, unspecified Medications: New lisinopril 20 mg PO DAILY 90 tabs 3RF Discontinued lisinopril Discontinued Reason: Doctor's Order 20 mg (2 x 10 mg) PO DAILY 90 tabs 2RF Coding Level of Care Code Est Pt Level 4 (12371) Complex EM visit Add On G2211 Diagnoses Acquired hypothyroidism E03.9 Dyslipidemia E78.5 Osteopenia of multiple sites M85.89 Essential hypertension I10
== END 2024-05-08 11:49 | disposition home or self-care (01) ==
PROVIDERS: PCP Internal Medicine; Visit Provider Internal Medicine
DX: E03.9 Hypothyroidism, unspecified (principal); E78.5 Hyperlipidemia, unspecified; M85.89 Other specified disorders of bone density and structure, multiple sites; I10 Essential (primary) hypertension
CPT/HCPCS: 99214; G2211

== ENCOUNTER 2024-05-22 10:57 | Outpatient (REF) | payer MEDICARE, SELFPAY ==
--- NOTE | ~2024-05-22 | MM_ITS ---
EXAMINATION: BONE DENSITOMETRY CLINICAL INDICATION: Other specified disorders of bone density and structure, multiple sites. COMPARISON: Previous BD dated 04/28/2021 and baseline BD dated 03/19/2008. TECHNIQUE: Using a [employer] DXA System (software version: 13.1) manufactured by [employer], dual-energy x-ray absorptiometry was performed of the lumbar spine and left hip. The images are of good technical quality. Summary results are attached. FINDINGS: LEFT FEMUR, NECK: Current: BMD 0.836 g/cm2, Z-score 0.7, T-score -1.5, osteopenia. Prior: BMD 0.725 g/cm2. Baseline: BMD 0.861 g/cm2. LEFT FEMUR, TOTAL: Current: BMD 0.830 g/cm2, Z-score 0.6, T-score -1.4, osteopenia, 6.1% increase from previous, 7.7% decrease from baseline (<5% change is not significant). Prior: BMD 0.782 g/cm2. Baseline: BMD 0.899 g/cm2. AP SPINE L1-L3 (excluding L4): The data of L1-L4 has been changed to exclude the L4 vertebral body, because degenerative sclerosis at this level may cause overestimation of lumbar spine density. Current: BMD 1.003 g/cm2, Z-score 0.3, T-score -1.4, osteopenia, 4.3% decrease from previous, 1.5% decrease from baseline (<5% change is not significant). Prior: BMD 1.048 g/cm2. Baseline: BMD 1.018 g/cm2. IDENTIFIED RISK FACTORS: Bilateral oophorectomy, height loss, menopause. HISTORY OF FRACTURE: None listed. MEDICATIONS: Multivitamin, vitamin D. MM/XR DEXA axial skeleton IMPRESSION: 1. DIAGNOSIS: Osteopenia based on the lowest T-score value of -1.5 in the femoral neck applying World Health Organization criteria. 2. 10-YEAR FRACTURE RISK PREDICTION, FRAX: Major osteoporotic fracture (clinical spine, forearm, hip or shoulder) 13.4%. Hip fracture 3.4%. 3. Treatment Recommendations: NOF guidelines recommend consideration for treatment in postmenopausal women and men age 50 and older presenting with the following: -A hip or vertebral (clinical or morphometric) fracture. -T-score less than or equal to -2.5 at the femoral neck or spine after appropriate evaluation to exclude secondary causes. -Low bone mass at the hip or spine and a 10-year fracture probability by FRAX of greater than or equal to 3% for hip fracture or greater than or equal to 20% for major osteoporotic fracture based on the [place] adapted WHO algorithm. 4. Other Recommendations: All treatment decisions require clinical judgment and consideration of individual patient factors, including patient preferences, comorbidities, previous drug use, risk factors not captured in the FRAX model (e.g. frailty, falls, vitamin D deficiency, increased bone turnover, interval significant decline in bone density) and possible under or overestimation of fracture risk by FRAX. Additional medical evaluation for secondary cause of low bone mineral density may be appropriate. FUTURE SCAN RECOMMENDATION: People with diagnosed cases of osteoporosis or at high risk for fracture should have regular bone mineral density tests. For patients eligible for Medicare, routine testing is allowed once every 2 years. The testing frequency can be increased to one year for patients who have rapidly progressing disease, those who are receiving or discontinuing medical therapy to restore bone mass, or have additional risk factors.
--- NOTE | ~2024-05-22 | MM_ITS ---
EXAMINATION: MM SCREENING DIGITAL BREAST TOMOSYNTHESIS, BILATERAL CLINICAL INFORMATION: Screening. Asymptomatic. COMPARISON: Mammography: This study is compared with prior exams dating back to 2020. TECHNIQUE: Digital breast tomosynthesis is performed in both the craniocaudal and mediolateral oblique views along with computer-aided detection (CAD). Synthesized 2D images are generated from the tomosynthesis. FINDINGS: The breasts are heterogeneously dense, which may obscure small masses (ACR BI-RADS breast composition Category c). There are no significant masses, abnormal calcifications, or other abnormalities. Bilateral benign calcifications are present. MM/MM tomosynthesis screening BI IMPRESSION: No mammographic evidence of malignancy. ASSESSMENT: BI-RADS BI-RADS 2 - Benign Findings RECOMMENDATION: Routine annual mammography screening. 1 year F/U This examination should not preclude the clinical evaluation of a suspicious palpable abnormality. This patient's information was entered into a reminder system with a target due date for their next mammogram.
== END 2024-05-22 10:58 | disposition home or self-care (01) ==
LOC: HO.MAMMO 10:57
PROVIDERS: PCP Internal Medicine; Visit Provider Internal Medicine
DX: Z12.31 Encounter for screening mammogram for malignant neoplasm of breast (principal); Z13.820 Encounter for screening for osteoporosis; M85.89 Other specified disorders of bone density and structure, multiple sites; Z78.0 Asymptomatic menopausal state; M84.374S Stress fracture, right foot, sequela
CPT/HCPCS: 77063; 77067; 77080

== ENCOUNTER → 2024-05-22 11:15 | Outpatient (BNV) | payer MEDICARE, SELFPAY | PROVIDERS: PCP Internal Medicine; Visit Provider Radiology Diagnostic Radiology | DX: Z12.31 Encounter for screening mammogram for malignant neoplasm of breast (principal) | CPT/HCPCS: 77063; 77067 ==

== ENCOUNTER 2024-09-24 07:14 | Outpatient (REF) | payer MEDICARE, SELFPAY ==
[2024-09-24 11:00] LABS: Alanine Aminotransferase 15 U/L (0-31); Anion Gap 10 (12-20); Aspartate Amino Transferase 27 U/L (5-31); Blood Urea Nitrogen 13 mg/dL (9-16); Calcium 8.8 mg/dL (8.4-10.2); Carbon Dioxide 28 mmol/L (22-29); Chloride 107 mmol/L (96-108); Cholesterol 171 mg/dL (<200); Estimated Glomerular Filt Rate > 60; Glucose Fasting 90 mg/dL (60-99); HDL Cholesterol 57 mg/dL (>40); LDL Cholesterol Calculated 97 mg/dL (<100); Potassium 3.7 mmol/L (3.3-5.1); Sodium 141 mmol/L (135-145); Triglycerides 87 mg/dL (<150)
[2024-09-24 11:11] LABS: Free T4 (Free Thyroxine) 1.18 ng/dL (0.71-1.85); Thyroid Stimulating Hormone 1.83 uIU/mL (0.32-4.0); Vitamin D 25-OH Total 77.2 ng/mL (>30)
== END 2024-09-24 07:15 | disposition home or self-care (01) ==
LOC: HO.HMGCLDS 07:14
PROVIDERS: PCP Internal Medicine; Visit Provider Internal Medicine
DX: I10 Essential (primary) hypertension (principal); Z78.0 Asymptomatic menopausal state; M85.89 Other specified disorders of bone density and structure, multiple sites; E03.9 Hypothyroidism, unspecified; E78.5 Hyperlipidemia, unspecified
CPT/HCPCS: 36415; 80048; 80061; 82306; 84439; 84443; 84450; 84460

== ENCOUNTER 2024-09-26 08:06 | Outpatient (AMB) | payer MEDICARE, SELFPAY ==
--- NOTE | 2024-09-26 08:11 | A.OFFPC_ITS ---
Vital Signs 09/26/24 08:12 09/26/24 08:54 Height 5 ft 5.5 in Weight 162 lb BMI 26.5 BP 142/78 H 130/80 Blood Pressure Location Lt brachial Lt brachial Position Sitting Sitting Pulse 88 Pulse Source Pulse Oximeter Pulse Oximetry (%) 98 Oxygen Delivery Method Room Air Intake Visit Reasons: follow up Intake Note: Pt is here today for her lab f/u Allergies amoxicillin Adverse Reaction (Unknown, Verified 09/26/24 08:31) yeast infection codeine Adverse Reaction (Unknown, Verified 09/26/24 08:31) vomiting Medication List - Last Reconciled 09/26/24 by Clarice Boyce MD atorvastatin 10 mg PO MOWEFR 3 months butterbur root extract 50 mg PO DAILY cetirizine (Zyrtec) 10 mg PO DAILY PRN cholecalciferol (vitamin D3) 25 mcg PO DAILY doxepin 6 mg PO BEDTIME PRN doxycycline hyclate 100 mg PO BID latanoprost 0.005% drps ophthalmic (eye) levothyroxine 75 mcg PO QAM lisinopril 20 mg PO DAILY lorazepam 0.5 mg PO DAILY PRN metronidazole 0.75% 1 appl topical BID omeprazole 20 mg PO DAILY Tobacco use date assessed: 09/26/24 Fall risk assessment: No Falls in past year Last assessed Fall Risk: 09/26/24 Dental Screening Dental Screen Date: 09/26/24 Did you have a dental visit in the last 12 months?: Yes Did you have a dental problem in the last 6 months where you did not have access to dental care?: Yes Was dental information given to patient?: Patient has dentist HPI follow up HPI Details 84-year-old lady here today for follow-u p on her lipids and hypertension. She has been compliant with taking her medications and has been walking at least 2 miles daily. Checking her blood pressure at home with both radial and brachial cuff and it has been averaging less than 130/80, sometimes going up to 140/90 but rarely. Denies any chest pain, no shortness of breath, no generalized weakness or headache. She was recently seen by Dr. Hill for an acute flare-up of her rosacea, placed on doxycycline 100 mg per capsule for 2 weeks and then decrease dose to 20 mg twice a day indefinitely, and prescribed ivermectin cream, which she has n ot yet started using. She is up-to-date with her screening mammogram and bone density scan, latter showing presence of osteopenia unchanged from previous test. [facility] Medical History (Updated 09/26/24 @ 09:02 by Clarice Boyce MD) Rosacea Stress fracture of right foot Essential hypertension External hemorrhoids without complication Recurrent insomnia Postmenopause Anxiety disorder Menopause Osteopenia of multiple sites Dyslipidemia Ovarian cyst Migraine Esophagitis Acquired hypothyroidism Surgical History S/P dilatation of esophageal stricture History of salpingo-oophorectomy Family History Father Smoker Lung cancer Mother Multiple myeloma Social History Housing: House Alcohol intake: current Patient Tobacco Use Status: Never used Tobacco e-Cigarette/Vaping Use: Never Used Second Hand Smoke Exposure: No service: No Current occupational status: retired Cognitive needs: No Hearing needs: No Vision needs: Yes Questionnaire Thrive Questionnaire Date Thrive assessed: 01/08/24 FREDRICK-7 AMB Questionnaire FREDRICK-7 Date FREDRICK - 7 assessed: 01/08/24 Source: Developed by Drs. Stan Long, Kika Will, Edward Rutherford and colleagues, with an educational cristian from [employer]. Review of Systems Const Denies body aches, Denies fatigue, Denies fever(s) and Denies weakness Eyes Details: sees Dr Smith Reports no additional complaints ENT Reports no additional complaints Card Denies chest pain, Denies lightheadedness, Denies palpitations and Denies dyspnea Resp Denies chest congestion, Denies cough and Denies dyspnea GI Denies abdominal pain, Denies change in bowel habits and Denies heartburn Reports no additional complaints Musc Reports no additional complaints Skin/Breast Details: sees Dr Hill Neuro Denies weakness Psych Reports no additional complaints Endo Denies fatigue, Denies polydipsia, Denies polyuria and Denies palpitations Anthony/Lymph Reports no additional complaints Aller/Immun Reports no additional complaints Physical exam (Primary Care) Vital Signs: Last Vital Signs Pulse 88 09/26/24 08:12 BP 130/80 09/26/24 08:54 Pulse Ox 98 09/26/24 08:12 Oxygen Delivery Method Room Air 09/26/24 08:12 BMI result Body Mass Index 26.5 Tobacco/Smoking Status: Tobacco use Status Tobacco use date assessed 09/26/24 09/26/24 08:15 Patient Tobacco Use Status Never used Tobacco 09/26/24 08:15 e-Cigarette/Vaping Use Never Used 09/26/24 08:15 Thrive Assessment: Date of Thrive Assessment Date Thrive assessed 01/08/24 09/26/24 08:15 Const Other: Alert oriented x3, no acute cardiorespiratory distress, ambulatory with normal gait HENMT Mouth: Normal oral and palatal mucosa present, oropharynx normal and moist mucous membranes Eyes General: appearance normal, both eyes and all related structures Neck Other: Supple, no lymphadenopathy, thyroid gland nonpalpable Resp Other: Clear to auscultation bilaterally Cardio Other: S1-S2 present, regular rate and rhythm GI Inspection: Yes normal to inspection Palpation (GI): Soft to palpation, nontender, no guarding and no masses Auscultation: normal bowel sounds General: Yes no CVA tenderness Back/Spine/Pelvis Back: no CVA tenderness and No back tenderness Skin Other: Erythematous patches on both maxillary areas Neuro General: gait normal, moves all extremities and no focal motor deficits Extrem General: Yes full ROM, Yes no joint enlargement, Yes no clubbing, cyanosis or edema and Yes normal gait Results Reviewed Results Reviewed: Name: Dodie Watson Age/Sex: 84/F : 1940 Unit#: [id number] Attend Dr: Clarice Boyce MD Re09/24/24 Status: DEP REF Location: [facility] Disch: SPEC : [id number] SHELLI: 09/24/24 STATUS: COMP REQ : [id number] RECD: 09/24/[address]: Clarice Boyce MD COMP: 09/24/24 ENTERED: 09/24/[address]: ORDERED: Met Prof Fast, AST, ALT, Lipid Panel, Vitamin D 25-OH, Free T4, TSH Test Result Flag Reference Sodium 141 135-145 mmol/L Potassium 3.7 3.3-5.1 mmol/L CL 107 96-108 mmol/L CO2 28 22-29 mmol/L Gap 10 L 12-20 BUN 13 9-16 mg/dL Creat 0.87 0.5-1.4 mg/dL eGFR > 60 Chronic Kidney Disease: Estimated GFR < 60 mL/min/1.73m2 Severe Kidney Disease: Estimated GFR < 15 mL/min/1.73m2 FBS 90 60-99 mg/dL CA 8.8 # 8.4-10.2 mg/dL AST (GOT) 27 5-31 U/L ALT (GPT) 15 0-31 U/L Triglyceride 87 <150 mg/dL Desirable Triglyceride: less than 150 mg/dL Borderline High Triglyceride 150-199 mg/dL High Triglyceride: 200-499 mg/dL Very High Triglyceride: greater than or equal to 5OO mg/dL Cholesterol 171 <200 mg/dL Desirable Cholesterol: less than 200 mg/dL Borderline High Cholesterol: 200-239 mg/dL High Cholesterol: greater than 239 mg/dL LDL Calculated 97 <100 mg/dL Desirable LDL: less than 100 mg/dL Near Optimal/Above Optimal LDL: 110-129 mg/dL Borderline High LDL: 130-159 mg/dL High LDL: 160-189 mg/dL Very High LDL: greater than or equal to 190 mg/dL HDL 57 >40 mg/dL Desirable HDL: greater than 40 mg/dL Note: This HDL assay may give artificially low results in patients with liver disease. Vit D 25-OH Tot 77.2 >30 ng/mL Health Based Reference Values* < 20 ng/mL Deficient 20-30 ng/mL Insufficient > 30 ng/mL Sufficient *Jeanie WELLS. N Engl J Med. 2007;357:266-280 Care must be taken in interpreting Vitamin D results from different laboratories and methodologies. Published data demonstrated that results from patients undergoing hemodialysis may show a negative bias when tested with various automated 25-OH vitamin D assays when compared to LC-MS/MS. When testing samples from patients whose predominant form of Vitamin D is Vitamin D2, such as patients receiving Vitamin D2 supplementation, results that are subtherapeutic should be confirmed with another method such as LC-MS/MS. Free T4 1.18 0.71-1.85 ng/dL TSH 3rd Gen. 1.83 0.32-4.0 uIU/mL Coding Level of Care Code Est Pt Level 4 (18654) Complex EM visit Add On G2211 Diagnoses Essential hypertension I10 Acquired hypothyroidism E03.9 Dyslipidemia E78.5 Osteopenia of multiple sites M85.89 Rosacea L71.9 Assessment & Plan Assessment & Plan (1) Essential hypertension: Code(s): I10 - Essential (primary) hypertension Category: Medical Plan: Will continue on lisinopril 20 mg daily. May check her blood pressure every now and then but advised not to check it after eating, or immediately after any exertion. Reinforced importance of following a low-salt diet and continue with regular exercise, walks 2 miles daily (2) Acquired hypothyroidism: Code(s): E03.9 - Hypothyroidism, unspecified Category: Medical Plan: Latest thyroid levels are within normal limits, will continue on current dose of levothyroxine 75 mcg taken once a day in a.m. (3) Dyslipidemia: Code(s): E78.5 - Hyperlipidemia, unspecified Category: Medical Plan: Reviewed recent fasting lipid profile with patient with levels within normal limits . Continue atorvastatin 10 mg taken 3 times a week , in addition to adherence to low-cholesterol diet and regular exercise, at least 30 minutes 3 to 4 times a week. Advised patient to make healthy food choices, eat more fruits, vegetables, whole grains, wild caught fish and low-fat dairy. Limit amount of meat and fried or fatty food products, as well as processed foods and fast foods. (4) Osteopenia of multiple sites: Code(s): M85.89 - Other specified disorders of bone density and structure, multiple sites Category: Medical Plan: Reviewed recent bone density scan results with patient which showed osteopenia unchanged from previous test. Continue with regular weight-bearing exercise, taking adequate calcium from dietary sources and vitamin-D 3 supplements i ncrease to 2000 units daily (5) Rosacea: Code(s): L71.9 - Rosacea, unspecified Category: Medical Plan: Currently being seen by dermatology, now placed on doxycycline 100 mg twice a day for 2 weeks then decrease dose to 20 mg twice a day indefinitely and was prescribed ivermectin cream, which she has not yet started use Orders: Orders Alanine Aminotransferase 12/14/24 E03.9 - Hypothyroidism, unspecified, E78.5 - Hyperlipidemia, unspecified, I10 - Essential (primary) hypertension, M85.89 - Other specified disorders of bone density and structure, multiple sites, Z78.0 - Asymptomatic menopausal state Thyroid Stimulating Hormone 12/14/24 E03.9 - Hypothyroidism, unspecified, E78.5 - Hyperlipidemia, unspecified, I10 - Essential (primary) hypertension, M85.89 - Other specified disorders of bone density and structure, multiple sites, Z78.0 - Asymptomatic menopausal state Free T4 (Free Thyroxine) 12/14/24 E03.9 - Hypothyroidism, unspecified, E78.5 - Hyperlipidemia, unspecified, I10 - Essential (primary) hypertension, M85.89 - Other specified disorders of bone density and structure, multiple sites, Z78.0 - Asymptomatic menopausal state Lipid Panel 12/14/24 E03.9 - Hypothyroidism, unspecified, E78.5 - Hyperlipidemia, unspecified, I10 - Essential (primary) hypertension, M85.89 - Other specified disorders of bone density and structure, multiple sites, Z78.0 - Asymptomatic menopausal state Aspartate Amino Transferase 12/14/24 E03.9 - Hypothyroidism, unspecified, E78.5 - Hyperlipidemia, unspecified, I10 - Essential (primary) hypertension, M85.89 - Other specified disorders of bone density and structure, multiple sites, Z78.0 - Asymptomatic menopausal state Basic Metabolic Panel Fasting 12/14/24 E03.9 - Hypothyroidism, unspecified, E78.5 - Hyperlipidemia, unspecified, I10 - Essential (primary) hypertension, M85.89 - Other specified disorders of bone density and structure, multiple sites, Z78.0 - Asymptomatic menopausal state Vitamin D 25-OH Total 12/14/24 E03.9 - Hypothyroidism, unspecified, E78.5 - Hyperlipidemia, unspecified, I10 - Essential (primary) hypertension, M85.89 - Other specified disorders of bone density and structure, multiple sites, Z78.0 - Asymptomatic menopausal state
[2024-09-26 08:12] VITALS: BP 142/78; PULSE 88; O2SAT 98; BMI 26.5
[2024-09-26 08:54] VITALS: BP 130/80
== END 2024-09-26 09:10 | disposition home or self-care (01) ==
LOC: HO.HMCC 08:06
PROVIDERS: PCP Internal Medicine; Visit Provider Internal Medicine
DX: I10 Essential (primary) hypertension (principal); E03.9 Hypothyroidism, unspecified; E78.5 Hyperlipidemia, unspecified; M85.89 Other specified disorders of bone density and structure, multiple sites; L71.9 Rosacea, unspecified

== ENCOUNTER → 2024-09-26 08:06 | Outpatient (BNVA) | payer MEDICARE, SELFPAY | PROVIDERS: PCP Internal Medicine; Visit Provider Internal Medicine | DX: I10 Essential (primary) hypertension (principal); E03.9 Hypothyroidism, unspecified; E78.5 Hyperlipidemia, unspecified; L71.9 Rosacea, unspecified; M85.89 Other specified disorders of bone density and structure, multiple sites | CPT/HCPCS: 99212 ==

== ENCOUNTER 2024-12-12 10:19 | Outpatient (AMB) | payer MEDICARE, SELFPAY ==
--- NOTE | 2024-12-12 10:45 | AM.OFFWIN_ITS ---
Intake Vital Signs 12/12/24 10:52 Weight 150 lb BP 138/80 Blood Pressure Location Lt brachial Position Sitting Pulse 93 Pulse Source Pulse Oximeter Pulse Oximetry (%) 97 Intake Visit Reasons: EP injured & LT knee pain Intake Note: Patient here for left knee injury after a fall yesterday afternoon. Patient Tobacco Use Status: Never used Tobacco Allergies amoxicillin Adverse Reaction (Unknown, Verified 12/12/24 10:52) yeast infection codeine Adverse Reaction (Unknown, Verified 12/12/24 10:52) vomiting Do you need a note to return to daycare/school/sports/work: No HPI HPI Comments History of Present Illness Details 84 y/o female patient who presents to [facility] with c/o left knee pain after a Fall. Pt reports that she fell at home and landed on her left knee. She has been taking Acetaminophen 650 mg Q6h with good relief. [facility] Medical History (Updated 12/12/24 @ 11:16 by Sandrine Madera NP) Contusion of left knee, initial encounter Rosacea Stress fracture of right foot Essential hypertension External hemorrhoids without complication Recurrent insomnia Postmenopause Anxiety disorder Menopause Osteopenia of multiple sites Dyslipidemia Ovarian cyst Migraine Esophagitis Acquired hypothyroidism Surgical History S/P dilatation of esophageal stricture History of salpingo-oophorectomy Family History Father Smoker Lung cancer Mother Multiple myeloma Social History Housing: House Alcohol intake: current Patient Tobacco Use Status: Never used Tobacco e-Cigarette/Vaping Use: Never Used Second Hand Smoke Exposure: No service: No Current occupational status: retired Cognitive needs: No Hearing needs: No Vision needs: Yes Review of Systems Const All systems reviewed & are unremarkable except as noted in HPI and below Physical Exam Vital Signs: Last Vital Signs Pulse 93 12/12/24 10:52 BP 138/80 12/12/24 10:52 Pulse Ox 97 12/12/24 10:52 Const General: cooperative and no acute distress Orientation/consciousness: patient oriented x3 Neuro General: patient oriented x3, gait normal and moves all extremities Extrem Right lower extremity: normal to inspection and full ROM Left lower extremity: normal to inspection, full ROM and knee Details: tenderness Location: of the patella and normal ROM; no swelling, no abrasions, no lacerations, no ecchymosis, no crepitus and no deformity Psych Speech and movement: Normal speech and movement present Assessment & Plan Assessment & Plan (1) Contusion of left knee, initial encounter: Code(s): S80.02XA - Contusion of left knee, initial encounter Plan: Fracture Unlikely, will Hold Xray for now OA related NSAIDs and Acetaminophen for pain Knee Brace Rest joint. Medications: New naproxen 500 mg PO BID 60 tabs 0RF S80.02XA - Contusion of left knee, initial encounter Coding Level of Care Code Est Pt Level 3 (54604) Diagnoses Contusion of left knee, initial encounter S80.02XA Time Spent (min) 15
[2024-12-12 10:52] VITALS: BP 138/80; PULSE 93; O2SAT 97
--- OUTSIDE RECORDS SUMMARY | 2024-12-12 13:45 | XMS_ITS | Patient Health Record ---
[facility] Address [address] [place] [address] Care Team Providers Care Technical Illustrator Name Role Phone Austen JEREZ, Clarice Cantor Primary Care Provider Un available Lorenakwaku Herlinda Unavailable [phone] Allergies Allergen (clinical drug ingredient) Drug/Non Drug Allergy documented on EMR Reaction Allergy Type Onset Date Status codeine Codeine vomiting Drug Allergy Active Reason For Referral No Information Medications Medication SIG (Take, Route, Frequency, Duration) Notes Start Date End Date Status Latanoprost Active Walking Boot/Pneumatic As directed Wear Daily for Until further notice 12/04/2023 Active vitamin butterbur Not-Taking Lisinopril 5 MG 1 tablet Orally Once a day Active Atorvastatin Calcium 10 MG 1 tablet Oral ly Once a day for 30 day(s) Active Levothyroxine Sodium 88 MCG 1 tablet in the morning on an empty stomach Orally Once a day for 30 day(s) Active ZyrTEC Allergy Activ e PriLOSEC 20 Active Eye Drops Active Immunizations Vaccine Route Administration Date Status Comme nts COVID-19 Pfizer BioNTech Vaccine Unknown 08/26/2021 Administered First Dose: 12/19/20 Second Dose: 01/09/2021 Social History Tobacco Use: Social History Observation Description Date Details (start date - stop date) Never Smoker NA - NA Tobacco Use/Smoking Question Answer Notes Are you a: nonsmoker Alcohol Screen Question Answer Notes Did you have a drink contain ing alcohol in the past year? Yes How often did you have a dri nk containing alcohol in the past year? Monthly or less (1 point) How often did you have 6 or more drinks on one occasion in the past year? Less than monthly (1 point) Points 2 Interpretation Negative Tobacco use other than smoking: Question Answer Notes Are you an other tobacco user? 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) Active confirmed Vital Signs Blood pressure diastolic 71 mm Hg 12/19/2023 Height 5 ft 5 in in 12/19/2023 Blood pressure systolic 171 mm Hg 12/19/2023 Weight 157 lbs 12/19/2023 BMI 26.12 kg/m2 12/19/2023 Encounters Encounter Location Date Provider Diagnosis [facility] [address] [address] 12/19/2023 Herlinda Doll Pain in right foot M79.671 ; Fracture, stress, metatarsal, right, with routine healing, subsequent encounter M84.374D ; Hallux valgus, right M20.11 and Hallux rigidus of right foot M20.[address] [facility] [address] 02/23/2024 Herlinda Doll Assessments Encounter Date Diagnosis (ICD Code) Assessment Notes Treatment Notes Treatment Clinical Notes Section Notes 12/19/2023 Pain in right foot (ICD-10 - M79.671) 12/19/2023 Fracture, stress, metatarsal, right, with routine healing, subsequent encounter (ICD-10 - M84.374D) 12/19/2023 Hallux valgus, right (ICD-10 - M20.11) 12/19/2023 Hallux rigidus of right foot (ICD-10 - M20.21) Plan Of Treatment Pending Test Test Name Order Date X ray : Foot, right 3V 09/22/2021 X ray : Foot, right 3V 12/04/2023 X ray : Foot, right 3V 12/19/2023 Insurance Providers Payer Name Payer Address Payer Phone Subscriber Number Group Number Insured Name Patient Relationship to Insured Coverage Start Date Coverage End Date Medicare [employer] [address] [place] [address] [id number] Dodie Watson Self - patient is the insured [employer] [address] [place] [address] [id number] Dodie Watson Self - patient is the insured Medical (General) History Medical History History ICD Code Glaucoma Reflux ( GERD) thyroid Chicken pox Surgical History Surgery Date(Month/Year) ovary removal surgery colonoscopy
--- OUTSIDE RECORDS SUMMARY | 2024-12-12 13:45 | XMS_ITS ---
Author Organization [facility] Address [address] [place] [address] Care Team Providers Care Kinesiotherapist Name Role Phone Austen JEREZ, Clarice Cantor Primary Care Provider Un available Herlinda Doll Unavailable [phone] REASON FOR VISIT cx appt 03/05 Encounters Encounter Location Date Provider Diagnosis [facility] [address] [place] [address] 02/23/2024 Herlinda Doll Plan Of Treatment No Information Progress Notes * Dodie WATSON ADOB: [birth year] (83 yo F)Acc No.[id number]:02/23/2024 Patient:?Dodie Watson :1940???Age:83 Y???Sex:Female Address:[address] [place] [id number] * true * Date:? Generated for Geminii regis/Jaime/eTransmitting on:?12/12/2024 01:44 PM EST
--- OUTSIDE RECORDS SUMMARY | 2024-12-12 13:45 | XMS_ITS ---
Author Organization [facility] Address [address] [place] [address] Care Team Providers Care Leather Crafter Name Role Phone Austen JEREZ, Clarice Cantor Primary Care Provider Un available Herlinda Doll Unavailable [phone] Allergies Allergen (clinical drug ingredient) Drug/Non Drug Allergy documented on EMR Reaction Allergy Type Onset Date Status codeine Codeine vomiting Drug Allergy Active REASON FOR VISIT pcp: 12/06, Foot pain Medications Medication SIG (Take, Route, Frequency, Duration) Notes Start Date End Date Status Latanoprost Active Walking Boot/Pneumatic As directed Wear Daily for Until further notice 12/04/2023 Active vitamin butterbur Not-Taking PriLOSEC 20 Active Eye Drops Active Lisinopril 5 MG 1 tablet Orally Once a day Active Atorvastatin Calcium 10 MG 1 tablet Oral ly Once a day for 30 day(s) Active Levothyroxine Sodium 88 MCG 1 tablet in the morning on an empty stomach Orally Once a day for 30 day(s) Active ZyrTEC Allergy Activ e Social History Tobacco Use: Social History Observation [...] Are you an other tobacco user? No Vital Signs Height 5 ft 5 in in 12/19/2023 Weight 157 lbs 12/19/2023 BMI 26.12 kg/m2 12/19/2023 Blood pressure systolic 171 mm Hg 12/19/19 Blood pressure diastolic 71 mm Hg 024 Encounters Encounter Location Date Provider Diagnosis [facility] [address] [place] [address] 12/19/2023 Herlinda Doll Pain in right foot M79.671 ; Fracture, stress, metatarsal, right, with routine healing, subsequent encounter M84.374D ; Hallux valgus, right M20.11 and Hallux rigidus of right foot M20.21 Assessments Encounter Date Diagnosis (ICD Code) Assessment [...] Date X ray : Foot, right 3V 12/19/2023 Next Appt Details Follow Up: prn, Reason: Progress Notes * Dodie WATSON ADOB: [birth year] (83 yo F)Acc No.[id number]:12/19/2023 Progress Notes Patient:?Dodie Watson Provider:?Herlinda Doll DPM :1940???Age:83 Y???Sex:Female D ate:12/19/2023 Address:[address] [place], [place] [id number] Pcp:Chio Lopes Subjective: * Chief Complaints: * ???Pcp: 12/06Foot pain * HPI: ???Foot Pain:?Nature:?aching , swelling , tenderness.?Location:?Forefoot , RIGHT.?Duration:?several weeks.?Onset:?exercise , walking, overuse.?Course:?improved , at 85 %.?Aggrevated:?standing , any pressure , walking.?Treatments:?rest/alter normal daily activity, immobilization in cast boot.? * ROS:?General/Constitutional:?Nausea?denies, denies.?Vomiting?denies, denies.?Hunger Thirst?denies, denies.?Loss appetite?denies, denies.?Chills?denies, denies.?Fatigue?denies, denies.?Fever?denies, denies.?Night Sweats denies, denies.?Unexplained weight loss?denies, denies.?Unexplained weight gain?denies, denies.?HEENTM:?Dentures?denies, denies.?Dizziness?denies, denies.?Glasses/contacts?admits, admits.?Retinopathy?denies, denies.?Blurred/double vision?denies, denies.?TMJ?denies, denies.?Discharge/drainage?denies, denies.?Implants?denies, denies.?Sore throat?denies, denies.?Dental implants?denies, denies.?Hard of hearing ?denies, denies.?Difficulty chewing/swallowing/speaking?denies, denies.?Nose bleeds?denies, denies.?Sore mouth?denies, denies.?Respiratory:?On Oxygen?denies, denies.?Pneumonia/pleurisy?denies, denies.?Bronchitis?denies, denies.?Emphysema?denies, denies.?Coughing?denies, denies.?Cough blood?denies, denies.?Shortness of breath?denies, denies.?Wheezing?denies, denies.?Cardiovascular:?Pacemaker?denies, denies.?MVP?denies, denies.?WPW?denies, denies.?CHF?denies, denies.?Heart attack?denies, denies.?Septal defect?denies, denies.?Rapid beat?denies, denies.?Chest pain ?denies, denies.?Atrial Fib.?denies, denies.?Murmur/Palpitations?denies, denies.?Gastrointestinal:?Hemorrhoids?denies, denies.?Stomach/Abdominal pain?denies, denies.?Dark blood stool?denies, denies.?Irritable bowel ?denies, denies.?Constipation?denies, denies.?Diarrhea?denies, denies.?Hematology:?Swelling?admits, admits.?Clots?denies, denies.?Varicose Veins?denies, denies.?Bruising?denies, denies.?Bleeding problem?denies, denies.?Genitourinary:?Blood urine?denies, denies.?Frequent/Painfu/urination/bladder control?denies, denies.?Kidney stones?denies, denies.?Infection (UTI)?denies, denies.?Nephropathy?denies, denies.?sex trans dis (STD)?denies, denies.?Prostate?denies, denies.?Musculoskeletal:?Hammertoes?admits, denies.?Bunions?admits, admits.?Back Pain?denies, denies.?Muscle Cramps/ Resting?denies, denies.?Muscle cramps / walking?denies, denies.?Generalized aches and pains?denies, denies.?Weakness?denies, denies.?Integ.:?Hernandez?denies, denies.?Scars?denies, denies.?Corns/calluses?admits, admits.?Ingrown nails?denies, denies.?Painful nails?admits,admits.?Open Sores?denies, denies.?Rashes?denies, denies.?Neurologic:?Difficulty sleeping?denies, denies.?Brain disorder?denies, denies.?Numbness?denies, denies.?Balance trouble?denies, denies.?Confusion?denies, denies.?Fainting/blackouts?denies, denies.?Tingling?denies, denies.?Tremors?denies, denies.? * Medical History:? * Surgical History:?ovary chela alirio surgery colonoscopy * Hospitalization/Major Diagno stic Procedure:?Denies Past Hospitalization * Family History:?Mother: dece ased.?Father: , Cancer, diagnosed with Other malignant neoplasm of unspecified site.?Son(s): Cancer, diagnosed with Other malignant neoplasm of unspecified site.? * Social History:?Tobacco Use:?Tobacco Use/Smoking?Are you a:?nonsmoker ?Tobacco use other than smoking?Are you an other tobacco user??No ???Drugs/Alcohol:?Drugs?Have you used drugs other than those for medical reasons in the past 12 months??No ?Alcohol Screen?Did you have a drink containing alcohol in the past year??Yes ?How often did you have a drink containing alcohol in the past year??Monthly or less (1 point) ?How often did you have 6 or more drinks on one occasion in the past year??Less than monthly (1 point) ?Points?2 ?Interpretation?Negative ???Miscellaneous:?Caffeine: yes, frequency:Occassionally 1 cup. ?Children: yes, 2. ?Exercise: yes, walking. ?Marital status: . ?Occupation: Retired-, Realtor. * Medications:?TakingLisinopri l 5 MG Tablet 1 tablet Orally Once a dayAtorvastatin Calcium 10 MG Tablet 1 tablet Orally Once a dayLevothyroxine Sodium 88 MCG Tablet 1 tablet in the morning on an empty stomach Orally Once a dayZyrTEC Allergy PriLOSEC 20 mg Eye Drops Latanoprost Walking Boot/Pneumatic As directed Wear DailyTaking Lisinopril 5 MG Tablet 1 tablet Orally Once a dayTaking Atorvastatin Calcium 10 MG Tablet 1 tablet Orally Once a dayTaking Levothyroxine Sodium 88 MCG Tablet 1 tablet in the morning on an empty stomach Orally Once a dayTaking ZyrTEC Allergy Taking PriLOSEC 20 mg Taking Eye Drops Taking Latanoprost Taking Walking Boot/Pneumatic As directed Wear DailyNot-Taking/PRNvitamin butterbur Medication List reviewed and reconciled with the patientNot-Taking/PRN vitamin butterbur Medication List reviewed and reconciled with the patient * Allergies:?Codeine: vomiting yes[Allergies Verified] Objective: * Vitals:?Ht: 5 ft 5 in, Wt: 1 57, BMI: 26.12, Shoe size: 10, BP: 171/71 mm Hg, Wt- k.21 kg. * Examination: ???General Examination: ?GENERAL APPEARANCE:?Reveals a pleasant, alert, well-nourished, well- developed, well hydrated individual, who demonstrates proper attention to hygiene/body habitus, and is in no acute distress, Pt serves as own?historian for office visit today.?ORIENTED:?person, place, and time.?Neurological: ?SENSORY:?Neurological exam reveals intact sensorium, pain sensation normal, vibration sensation intact, pinprick sensation is normal in the lower extremities, Pt denies, anesthesia, burning, paresthesia, tingling, B/L.?TINEL'S COMPRESSION:? Negative tarsal tunnel, reyes pedis, and medial calcaneal nerves, Right.?DEEP TENDON REFLEXES:?Achilles, 2/4, B/L.?Vascular: ?DP PULSES:?3/4, B/L.?PT PULSES:?3/4, B/L.?CAPILLARY FILL TIME:?immediate, all digits, B/L.?SKIN TEMPERTURE GRADIENT OF THE LOWER EXTERMITIES:?warm to cool, proximal to distal, B/L.?HAIR GROWTH/TEXTURE/ELASTICITY/TURGOR:?normal, B/L.?PIGMENTATION:?normal, B/L.?EDEMA:?absent, B/L.?Dermatologic: ?SKIN FINDINGS:?Skin exam reveals normal texture, elasticity, and turgor. There are no masses. The interspaces are clear.?Orthopedic: ?MUSCLE STRENGTH:?5/5 all groups in a symmetrical fashion , B/L.?BUNION:?Dorso-Medially prominent 1st MPJ , (+) Pain on palpation , Lateral tracking 1st MPJ incompletely reducible , Limited 1st MPJ Dorsal ROM , Limited 1st MPJ Plantar ROM , Pain assoc with 1st MPJ ROM , RIGHT.?MPJ PATHOLOGY:?Little to no Pain on Metatarsal Palpation distal 1/3 shaft , 4th , RIGHT.?X-Rays - IMAGING REPORT: ?Clinical Indication(s):? Evaluate for Fracture.?Views:? 3 views of Foot, AP, LAT, LO, RIGHT.?Findings:?mild generalized decrease in bone density.?HAV:?increased First Intermetatarsal angle and Hallux Abductus angle consistent with Bunion deformity noted , hypertrophy of the dorsal and medial 1st MTH without subchondral cyst , there is asymmetrical narrowing of the 1st MPJ joint space , there is increased density of the 1st MPJ with asymmetrical joint space narrowing , there is squaring of the 1st MTH , there is an exostosis located at the dorsal aspect of the 1st MTH.?Fracture:?Negative fractures identified.?Neuroma Pain: ?PALPATION:?No interspace pain noted on palpation.? Assessment: * Assessment: 1.?Pain in right foot - M79. 671?2.?Fracture, stress, metatarsal, right, with routine healing, subsequent encounter - M84.374D (Primary), Response to treatment - Improvement?3. Hallux valgus, right - M20.11, Chronic problem, Worse (4)?4.?Hallux rigidus of right foot - M20.21? Plan: * Treatment: * Imaging:? * ?Imaging: X ray : Foot, right 3V * Procedure Codes:?27692 X-RAY EXAM OF RIGHT FOOT 3V, Modifiers: 26 , RT * Preventive Medicine:? ??Counseling:?Discussion:?-14: Office or other outpatient visit for the evaluation and management of an established patient, which required a medically appropriate history and/or examination and MODERATE level of DECISION MAKING for: 1 OR MORE CHRONIC PROBLEM(S) THATS WORSENING, 2 STABLE CHRONIC PROBLEMS, A NEWLY DIAGNOSED PROBLEM WITH UNCERTAIN PROGNOSIS, AN ACUTE COMPLICATED INJURY WITH MULTIPLE TREATMENT OPTIONS, OR AN ACUTE PROBLEM WITH ACCOMPANYING SYSTEMIC SYMPTOMS, THAT POSE(S) A MODERATE RISK OF MORBIDITY. THIS CONDITION MAY ALSO INCLUDE RX DRUG MANAGEMENT, OR A DECISON FOR MINOR SURGERY. The visit on the day of the encounter encompassed interpreting the data and educating the patient as to the nature of their condition, treatment options available according to their individual PMH, meds, allergies, and overall health/living conditions, as well as any potential risks or complications that may occur from a failure to adhere to, and participate in, the recommended course of therapy. The discussion included a complete verbal, and/or written explanation of the examination results, any x-rays taken, the proposed diagnosis, and outline of the treatment plan. A schedule for future care needs was also explained. The patient verbalized an understanding of the instructions at this time and agreed to be an active participant in their treatment. If the patient should think of any questions or concerns after the visit, I have encouraged the patient to call the office.?Digital Treatment:?HV - I explained to the patient the risks/benefits of all the different treatment options for their pain including: No treatment at all, Rest, Ice, New/supportive/wider/deeper Shoegear, Digital Padding/Strapping/Taping/Bracing/Gel protective sleeves, Foot/Ankle AFO Bracing, Stretching exercises, Deep Tissue Massage, Arch support/shoe inserts with splay metatarsal padding, and Custom orthoses. I insisted that any digital devices be removed daily and not worn overnight for safety. The patient is to carefully examine the toes daily for any skin irritation while using any splinting or padding device. The advantages and disadvantages of each option were discussed and the patients questions re: shoegear, padding, custom vs prefabricated inserts, activity level, and consistency in home treatment regimens for optimal success were answered to their verbally confirmed satisfaction.?Discussion for Bunion sx:?Recomm, rest, ice, proper shoegear, padding, orthotics, anti-inflammatories or tylenol as tolerated, topical analgesics, cortisone injections.?P.R.I.C.E.:?The patient was counseled on the use of P.R.I.C.E. and NSAIDS (if well tolerated) to aid in the recovery from their painful condition.?Podiatric Counseling:?I explained the etiology of the patients podiatric pathology and the usual treatment plan. The patient was made aware of the adverse risks and sequelae associated with their medical condition(s) and the treatment necessary to avoid those complications. Dicussed the diagnosis and treatment of a stress fracture with the patient. Discussed that stress fractures often may not show radiographic evidence early. Pt can begin to transition out of boot to supportive shoe.?Podiatric Surgery Counseling:?Surgical procedures to treat the patients foot problem were discussed. We reviewed the risks of the procedure (described below) vs not having the procedure (persistent pain, deformity, risk for skin ulceration/infection, loss of toe). We discussed the potential procedure complications including, but not limited to: pain, swelling, bleeding, scarring, numbness, infection, delayed/non healing, floppy/unstable/shorthened toe, recurrence, failure of the procedure, overcorrection leading to plantarflexed/downward positioned toe, recurrence, need for further surgery, as well as the possibility for loss of the toe itself. We discussed the use of IV/Local anesthesia, and the usual post-op course for healing. No guarentees were given. The patient verbally indicated a full understanding of the above conversation, and any other of their questions were answered to their satisfaction.?X-rays:?Discussed and reviewed the X-rays with the patient. We discussed how the findings relate to the patients symptoms/complaints. Answered any and all questions..? * Follow Up:?prn * Images: * Sign off status: Completed true * Provider:?Herlinda Doll, MARGA Date:?04/2024 Generated for Graciela stacy/Jaime/Jackelin on:?12/12/2024 01:44 PM EST History and Physical Notes * HPI (History of Present Illness) Category Sub-Category Detail Notes Category Not es Foot Pain Nature: aching , swelling , tenderne ss Location: Forefoot , RIGHT Duration: several weeks Onset: exercise , walking, overuse Course: improved , at 85 % Aggravated: standing , any press ure , walking Treatments: rest/alter normal da srini activity, immobilization in cast boot Examination Category Sub-Category Detail Notes Category Not es Neuroma Pain PALPATION: No interspace pain noted on palpation Neurological SENSORY: Neurological exa m reveals intact sensorium, pain sensation normal, vibration sensation intact, pinprick sensation is normal in the lower extremities, Pt denies, anesthesia, burning, paresthesia, tingling, B/L TINEL'S COMPRESSION: Negative tarsal andra feroz, reyes pedis, and medial calcaneal nerves, Right DEEP TENDON REFLEXES: Achilles, 2/4, B/L Dermatologic SKIN FINDINGS: Skin exam reveal s normal texture, elasticity, and turgor. There are no masses. The interspaces are clear Orthopedic BUNION: Dorso-Medially p rominent 1st MPJ , (+) Pain on palpation , Lateral tracking 1st MPJ incompletely reducible , Limited 1st MPJ Dorsal ROM , Limited 1st MPJ Plantar ROM , Pain assoc with 1st MPJ ROM , RIGHT MPJ PATHOLOGY: Little to no Pain on Metatarsal Palpation distal 1/3 shaft , 4th , RIGHT MUSCLE STRENGTH: 5/5 all groups in a symmetrical fashion , B/L General Examination GENERAL APPEARANCE: Reveals a pleasant, alert, well- nourished, well-developed, well hydrated individual, who demonstrates proper attention to hygiene/body habitus, and is in no acute distress, Pt serves as own historian for office visit today ORIENTED: person, place, and t [facility] DP PULSES (B): 3/4, B/L PT PULSES (B): 3/4, B/L CAPILLARY FILL TIME: immediate, all digi ts, B/L TEMPERTURE GRADIENT (C): warm to cool, p roximal to distal, B/L TROPHIC CONDITION-TEXTURE/ELASTICITY/TURGOR/HAIR GROWTH (B): normal, B/L EDEMA (C): absent, B/L PIGMENTATION: normal, B/L X-Rays - IMAGING REPORT Findings: mild generalized decrease in bone density Fracture: Negative fractures i dentified HAV: increased First Inte rmetatarsal angle and Hallux Abductus angle consistent with Bunion deformity noted , hypertrophy of the dorsal and medial 1st MTH without subchondral cyst , there is asymmetrical narrowing of the 1st MPJ joint space , there is increased density of the 1st MPJ with asymmetrical joint space narrowing , there is squaring of the 1st MTH , there is an exostosis located at the dorsal aspect of the 1st MTH Views: 3 views of Foot, AP, LAT, LO, RIGHT Clinical Indication(s): Evaluate for Fra cture
--- OUTSIDE RECORDS SUMMARY | 2024-12-12 13:45 | XMS_ITS ---
Author Organization [facility] Address [address] [place] [id number] Care Team Providers Care Proced Tech Name Role Phone Austen JEREZ, Clarice Cantor Primary Care Provider Un available Herlinda Doll Unavailable [phone] Encounters Encounter Location Date Provider Diagnosis [facility] [address] [place] [address] 03/05/2024 Herlinda Doll Plan Of Treatment No Information Progress Notes * Dodie WATSON ADOB: [birth year] (84 yo F)Acc No.[id number]:03/05/2024 Progress Note Patient:?Dodie WATSON Provider:?Herlinda Doll DPM :1940???Age:83 Y???Sex:Female D ate:03/05/2024 Address:[address] [place], [place] [id number] Pcp:Chio Lopes Subjective: * Chief Complaints: * ??? * Medical History:? Objective: * Vitals:? Assessment: Plan: * Treatment: * Images: * The named appointment provid er may or may not be the originator of this progress note, and it is not deemed complete until electronically signed by the appointment provider. Sign off status: Pending * Provider:?Herlinda Doll DPM Date:? Generated for Graciela stacy/Jaime/eTransmitting on:?12/12/2024 01:45 PM EST
== END 2024-12-12 12:55 | disposition home or self-care (01) ==
PROVIDERS: PCP Internal Medicine; Visit Provider Nurse Practitioner Family
DX: S80.02XA Contusion of left knee, initial encounter (principal)

== ENCOUNTER 2024-12-17 10:46 | Outpatient (AMB) | payer MEDICARE, SELFPAY ==
[2024-12-17 10:53] VITALS: BP 130/78; PULSE 73; RESP 16; TEMP 36.7; O2SAT 96; BMI 24.6
--- NOTE | 2024-12-17 10:53 | AM.OFFVISMDC ---
Intake Vital Signs 12/17/24 10:53 Height 5 ft 5.5 in Weight 150 lb BMI 24.6 BP 130/78 Blood Pressure Location Rt brachial Position Sitting Respiration 16 Pulse 73 Pulse Source Pulse Oximeter Temp 98.1 F Temp Source Oral Pulse Oximetry (%) 96 Intake Visit Reasons: MELODY G0439 Intake Note: Allergies amoxicillin Adverse Reaction (Unknown, Verified 12/17/24 15:41) yeast infection codeine Adverse Reaction (Unknown, Verified 12/17/24 15:41) vomiting Medication List - Last Reconciled 12/17/24 by Clarice Boyce MD atorvastatin 10 mg PO MOWEFR 3 months butterbur root extract 50 mg PO DAILY cetirizine (Zyrtec) 10 mg PO DAILY PRN cholecalciferol (vitamin D3) 25 mcg PO DAILY doxepin 6 mg PO BEDTIME PRN latanoprost 0.005% drps ophthalmic (eye) levothyroxine 75 mcg PO QAM lisinopril 20 mg PO DAILY lorazepam 0.5 mg PO DAILY PRN naproxen 500 mg PO BID omeprazole 20 mg PO DAILY sulfamethoxazole-trimethoprim 800-160 mg tabs PO Do you need a note to return to daycare/school/sports/work: No HPI MARILUV G0439 HPI Details SWV ? 84 year old lady presents for her subsequent? Annual Wellness Visit.? She is up-to-date with her mammogram and bone density scan done 05/22/2024, and had her last colonoscopy 11/29/12, no further colonoscopy needed . She is up-to-date with all her vaccinations, except for the RSV which she does not want to get at present time. Last fasting lipids and fasting blood sugar check done 09/24/2024 showed results within normal limits. She already completed her MOLST form, already scanned in her medical record, has healthcare proxy in place ? Medical / Social History Reviewed? Past Medical History ?Yes . ? [place] of Care / Care Team list updated ?Yes . ? Surgical/Hospitalization History ?Yes . ? Current Medications (including OTC and supplements) ?Yes . ? Family History ?Yes . ? Tobacco Control form ?Yes . ? AUDIT-C (Alcohol use) form ?Yes . ? Illicit drug use in Social History ?Yes . ? Current diagnosis of depression? ?No ? Appropriate PHQ2/PHQ9 completed ?Yes . ? Data entered by ?Electrical Engineering Drafting Officer and reviewed by provider ? Fall Risk ? Fall History? Have you had any falls with injury in the past year? Yes . ? Have you had two or more falls in the past year? ?Yes. ? Fall Risk Assessment: ?No falls in the past year . ? HRA filled out by the patient, reviewed by Provider and scanned. ? SWV ? Balance? Romberg ?Yes . ? Tandem walk ?unable to do ? Walk and Turn ?Yes . ? Rise from sit to stand ?Yes . ?Vision? Corrective lens ?Yes ? Vision screen ? Up-to-date, seecarola Smith ?Hearing? Whisper test ?pass . ?Written Plan?Completed. See Patient Documents.? HPI Comments History of Present Illness Details 84-year-old lady here today also complaining of having had 2 falls in the last mom. Patient states initially lost her balance when she tripped on the pavement. She was able to get up and sustained only a contusion injury on her knee. The next day however, she lost her balance trying to reach for a shovel, and states that it took her about 15 minutes to get up from the floor, as her legs were very weak. Still complaining of some unsteadiness in her gait [facility] Medical History (Updated 12/17/24 @ 15:50 by Clarice Boyce MD) Contusion of left knee, initial encounter Rosacea Stress fracture of right foot Essential hypertension External hemorrhoids without complication Recurrent insomnia Postmenopause Anxiety disorder Menopause Osteopenia of multiple sites Dyslipidemia Ovarian cyst Migraine Esophagitis Acquired hypothyroidism Surgical History S/P dilatation of esophageal stricture History of salpingo-oophorectomy Family History Father Smoker Lung cancer Mother Multiple myeloma Social History Housing: House Alcohol intake: current Patient Tobacco Use Status: Never used Tobacco e-Cigarette/Vaping Use: Never Used Second Hand Smoke Exposure: No service: No Current occupational status: retired Cognitive needs: No Hearing needs: No Vision needs: Yes Questionnaire Medicare Wellness Checkup What is your age?: 80 or older What gender do you identify with?: female During the past 4 weeks, how much have you been bothered by emotional problems such as feeling anxious, depressed, irritable, sad or downhearted, and blue?: slightly During the past 4 weeks, has your physical & emotional health limited your social activities with family, friends, neighbors, or groups?: not at all During the past 4 weeks, how much bodily pain have you generally had?: very mild pain During the past 4 weeks, was someone available to help you if you needed & wanted help?: yes, as much as I wanted During the past 4 weeks, what was the hardest physical activity you could do for at least 2 minutes?: moderate Can you get to places out of walking distance without help? (For eg., can you travel alone on buses, taxis or drive your car?): Yes Can you go shopping for groceries or clothes without someone's help?: Yes Can you prepare your own meals?: Yes Can you do your housework without help?: Yes Because of any health problems, do you need the help of another person with your personal care needs such as eating, bathing, dressing or getting around the house?: No Can you handle your own money without help?: Yes During the past 4 weeks, how would you rate your health in general?: good During the past 4 weeks how have things been going for you?: pretty well Are you having difficulties driving your car?: no Do you always fasten your seat belt when you are in a car?: yes, usually During past 4 weeks, have you been bothered by the following: never: Falling or dizzy when standing up, Sexual problems?, Trouble eating well?, Teeth or denture problems?, Problems using the telephone? and Tiredness or fatigue? Have you fallen 2 or more times in the past year?: Yes Are you afraid of falling?: Yes Are you a smoker?: no During the past 4 weeks, how many drinks of wine, beer, or other alcoholic beverages did you have?: no alcohol at all Do you exercise for about 20 minutes 3 or more times a week?: yes, some of the time Have you been given information to help with the following?: no: Hazards in your house that might hurt you? and no: Keeping track of your medications? How often do you have trouble taking medicines the way you have been told to take them?: I always take medicine as prescribed How confident are you that you can control & manage most of your health problems?: very confident What is your race?: White Mini Mental State Exam (MMSE) Orientation What is the (year) (season) (date) (day) (month)?: year (2024), season (Winter), date (12/17/2024), day (Monday) and month (December) Where are we (state) (county) (town or city) (hospital) (floor)?: state ([place]), county ([place]), town or city ([place]) and hospital/clinic ([facility]) Score Score: 9 Activity of Daily Living Bathing - sponge bath, tub bath or shower: receives no assistance (gets in/out by self, if usual bathing means Dressing - getting clothes from closets & drawers, including inner/outer garments & fasteners.: gets clothes & gets completely dressed without help Toileting - going to the 'toilet room' for urine/bowel elimination & cleaning self/arranging clothes: goes to toilet room, cleans self, arranges clothes without help Transfer: moves in & out of bed and chair without help (may use support object) Continence: controls urination/bowel movements completely by self Feeding: feeds self without help Total Score: 0 Information obtained from: patient Using telephone: independent Traveling: independent Shopping: needs assistance Preparing meals: independent Housework: needs assistance Taking medicine: independent Managing money: independent PHQ-9 Over the last 2 weeks, how often have you been bothered by any of the following problems? 1. Little interest or pleasure in doing things: not at all 2. Feeling down, depressed, or hopeless: not at all 3. Trouble falling or staying asleep, or sleeping too much: not at all 4. Feeling tired or having little energy: not at all 5. Poor appetite or overeating: not at all 6. Feeling bad about yourself - or that you are a failure or have let yourself or your family down: not at all 7. Trouble concentrating on things, such as reading the newspaper or watching television: not at all 8. Moving or speaking so slowly that other people could have noticed. Or the opposite - being so fidgety or restless that you have been moving around a lot more than usual: not at all 9. Thoughts that you would be better off or of hurting yourself in some way: not at all Total score: 0 Depression Screening Interpretation: Negative Depression Screening Done: Yes 34478 - PHQ-9 Billing: Yes Source: Developed by Drs. Stan Long, Kika Will, Edward Rutherfrod and colleagues, with an educational cristian from [employer]. Review of Systems Const Reports as per HPI, Denies body aches, Denies fatigue and Reports weakness Eyes Denies change in vision ENT Reports no additional complaints Card Denies chest pain, Denies chest pain with activity, Denies irregular heart rhythm, Denies palpitations and Denies dyspnea Resp Denies dyspnea GI Reports no additional complaints Reports no additional complaints Musc Reports muscle weakness (Both legs) and Reports stiffness Neuro Reports weakness Endo Denies fatigue and Denies palpitations Anthony/Lymph Denies easy bleeding and Denies easy bruising Physical Exam Vital Signs: Last Vital Signs Temp 98.1 F 12/17/24 10:53 Pulse 73 12/17/24 10:53 Resp 16 12/17/24 10:53 BP 130/78 12/17/24 10:53 Pulse Ox 96 12/17/24 10:53 BMI result Body Mass Index 24.6 Const Other: Alert oriented x3, no acute distress noted ambulatory with a hesitant slow gait Nutritional Appearance: overweight Orientation/consciousness: patient oriented x3 Neck Neck: Yes full ROM, Yes no lymphadenopathy and Yes supple Resp Auscultation: clear to auscultation bilaterally Cardio Other: S1-S2 present regular rate and rhythm Neuro General: patient oriented x3, tone normal, moves all extremities, Normal light touch and pain sensation, no focal motor deficits and CN's II-XI intact bilaterally Assessment & Plan Assessment & Plan (1) Encounter for subsequent annual wellness visit (AWV) in Medicare patient: Code(s): Z00.00 - Encounter for general adult medical examination without abnormal findings Plan: Medical wellness visit form discussed with patient updated and completed she is up-to-date with all her vaccines does not want to get RSV vaccination. No longer needing to do screening colonoscopy. Up-to-date with her screening mammogram and bone density scan (2) Unsteady gait: Code(s): R26.81 - Unsteadiness on feet Plan: Referral to physical therapy ordered for balance training, gait instable (3) Balance problems: Code(s): R26.89 - Other abnormalities of gait and mobility Plan: Referral to physical therapy (4) Essential hypertension: Code(s): I10 - Essential (primary) hypertension Plan: Blood pressure at goal of less than 130/80. Continue with current medication. Reinforced importance of following a low sodium diet, getting regular exercise, and lowering stress levels. (5) Allergic rhinitis: Comment: Patient to continue taking Zyrtec daily and will initiate additional therapy with Flonase once daily. Patient will follow-up with her primary care provider in 2 weeks for a review of her symptoms. Code(s): J30.9 - Allergic rhinitis, unspecified Plan: Continued cetirizine as needed (6) Osteopenia of multiple sites: Code(s): M85.89 - Other specified disorders of bone density and structure, multiple sites Plan: Emphasize doing regular weight-bearing exercise, take adequate calcium from dietary sources and continue with taking vitamin-D 3 supplement (7) Acquired hypothyroidism: Code(s): E03.9 - Hypothyroidism, unspecified Plan: Last thyroid levels are within normal limits, continued on current dose of levothyroxine 75 mcg daily in a.m. (8) Dyslipidemia: Code(s): E78.5 - Hyperlipidemia, unspecified Plan: Last fasting lipids in 10/02/2024 was within normal limits, continued on atorvastatin 10 mg every other day Orders: Orders PT Evaluation and Treatment Today R26.81 - Unsteadiness on feet, R26.89 - Other abnormalities of gait and mobility, Z91.81 - History of falling Quality Reporting (2019) Depression/Bipolar (159/160/161/177) PHQ-9: Total score: 0 Coding Level of Care Code Medicare Subsequent (G0439) Est Pt Level 4 (37012) Diagnoses Encounter for subsequent annual wellness visit (AWV) in Medicare patient Z00.00 Unsteady gait R26.81 Balance problems R26.89 Essential hypertension I10 Allergic rhinitis J30.9 Osteopenia of multiple sites M85.89 Acquired hypothyroidism E03.9 Dyslipidemia E78.5 CPT Codes Advance Care Planning - Advance Care Planning discussion: On file, no changes ([id number]) Advance Care Planning - Time spent: 1-15 minutes, on File ([id number]) Additional Codes PHQ-9 - 34778 - PHQ-9 Billing: Yes ([id number]) Advance Care Planning Advance Care Planning discussion: On file, no changes Date of discussion: 12/17/24 Who was present: Patient Forms completed: Health Care Proxy Time spent: 1-15 minutes, on File Actual minutes spent: 1
== END 2024-12-17 11:39 | disposition home or self-care (01) ==
PROVIDERS: PCP Internal Medicine; Visit Provider Internal Medicine
DX: Z00.00 Encounter for general adult medical examination without abnormal findings (principal); R26.81 Unsteadiness on feet; R26.89 Other abnormalities of gait and mobility; I10 Essential (primary) hypertension; J30.9 Allergic rhinitis, unspecified; M85.89 Other specified disorders of bone density and structure, multiple sites; E03.9 Hypothyroidism, unspecified; E78.5 Hyperlipidemia, unspecified

== ENCOUNTER → 2024-12-17 10:46 | Outpatient (BNVA) | payer MEDICARE, SELFPAY | PROVIDERS: PCP Internal Medicine; Visit Provider Internal Medicine | DX: Z00.00 Encounter for general adult medical examination without abnormal findings (principal); R26.81 Unsteadiness on feet; R26.89 Other abnormalities of gait and mobility; E03.9 Hypothyroidism, unspecified; I10 Essential (primary) hypertension; J30.9 Allergic rhinitis, unspecified; M85.89 Other specified disorders of bone density and structure, multiple sites; E78.5 Hyperlipidemia, unspecified | CPT/HCPCS: 96127; 99212 ==

== ENCOUNTER 2024-12-20 09:14 | Outpatient (REF) | payer MEDICARE, SELFPAY ==
--- OUTSIDE RECORDS SUMMARY | 2024-12-20 09:39 | XMS_ITS ---
Author Organization [facility] Address [address] [place] [address] Care Team Providers Care Infantry Weapons Crewmember Name Role Phone Austen JEREZ, Clarice Cantor Primary Care Provider Un available Herlinda Doll Unavailable [phone] Allergies Allergen (clinical drug ingredient) Drug/Non Drug [...] 024 Encounters Encounter Location Date Provider Diagnosis [facility] [place] [address] [place] [address] 12/19/2023 Herlinda Doll Pain in right foot [...] Dodie WATSON ADOB: [birth year] (83 yo F)Acc No.[id number]:12/19/2023 Progress Notes Patient:?Dodie Watson Provider:?Herlinda Doll DPM :1940???Age:83 Y???Sex:Female D ate:12/19/2023 Address:[address] [place], [place] [id number] Pcp:Chio Lopes Subjective: * Chief Complaints: * [...] ray : Foot, right 3V * Procedure Codes:?08353 X-RAY EXAM OF RIGHT FOOT 3V, Modifiers: [...] Doll, MARGA Date:?04/2024 Generated for Graciela stacy/Jaime/Jackelin on:?12/20/2024 09:39 AM EST History and Physical Notes * HPI [...]
--- OUTSIDE RECORDS SUMMARY | 2024-12-20 09:39 | XMS_ITS | Patient Health Record ---
[facility] Organization [facility] Address [address] [place] [address] Care Team Providers Care Field Representatives Director Name Role Phone Austen JEREZ, Clarice Cantor Primary Care Provider Un available Lorenakwaku Herlinda Unavailable [phone] Allergies Allergen (clinical drug ingredient) Drug/Non Drug [...] Problem Status W/U Status Risk Notes Problem 75829636 Plantar wart (B07.0) Active confirmed Problem 529489523961466 Hallux valgus (acquired), right foot (M20.11) Active confirmed Problem 543081633 Hammer toe of right foot (M20.41) Active confirmed Problem 903287228 Hammer toe of le ft foot (M20.42) Active confirmed Problem 280285079 Hallux rigidus o f right foot (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) Active confirmed Problem 598095578010121 Osteoarthritis o f right ankle and foot (M19.071) Active confirmed Problem 825327004 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) Active confirmed Encounters Encounter Location Date Provider Diagnosis [facility] [place] [address] [place] [address] 02/23/2024 Herlinda Doll Plan Of Treatment Pending Test Test Name Order Date X ray : Foot, right 3V 09/22/2021 X ray : Foot, right 3V 12/04/2023 X ray : Foot, right 3V 12/19/2023 Insurance Providers Payer Name Payer Address Payer Phone Subscriber Number Group Number Insured Name Patient Relationship to Insured Coverage Start Date Coverage End Date Medicare National Govt Svcs Inc [address] [place] [address] [id number] Dodie Watson Self - patient is the insured [employer] Blue Shield [address] [place] [address] [id number] Dodie Watson Self - patient is the insured Medical (General) History Medical History History ICD Code Glaucoma Reflux ( GERD) thyroid Chicken pox Surgical History Surgery Date(Month/Year) ovary removal surgery colonoscopy
--- OUTSIDE RECORDS SUMMARY | 2024-12-20 09:40 | XMS_ITS ---
Author Organization [facility] Address [address] [place] [address] Care Team Providers Care Options Advisor Name Role Phone Austen JEREZ, Clarice Cantor Primary Care Provider Un available Herlinda Doll Unavailable [phone] Encounters Encounter Location Date Provider Diagnosis [facility] [address] [place] [address] 03/05/2024 Herlinda Doll Plan Of Treatment No Information Progress Notes * Dodie WATSON ADOB: [birth year] (84 yo F)Acc No.[id number]:03/05/2024 Progress Note Patient:?Dodie WATSON Provider:?Herlinda Doll DPM :1940???Age:83 Y???Sex:Female D ate:03/05/2024 Address:[address] [place], [place] [id number] Pcp:Chio Lopes Subjective: * Chief Complaints: * ??? * Medical History:? Objective: * Vitals:? Assessment: Plan: * Treatment: * Images: * The named appointment provid er may or may not be the originator of this progress note, and it is not deemed complete until electronically signed by the appointment provider. Sign off status: Pending * Provider:?Herlinda Doll DPM Date:? Generated for Graciela stacy/Jaime/eTransmitting on:?12/20/2024 09:39 AM EST
--- OUTSIDE RECORDS SUMMARY | 2024-12-20 09:40 | XMS_ITS ---
Author Organization [facility] Address [address] [place] [address] Care Team Providers Care Lens Inserter Name Role Phone Austen JEREZ, Clarice Cantor Primary Care Provider Un available Herlinda Doll Unavailable [phone] REASON FOR VISIT cx appt 03/05 Encounters Encounter Location Date Provider Diagnosis [facility] [address] [place] [address] 02/23/2024 Herlinda Doll Plan Of Treatment No Information Progress Notes * Dodie WATSON ADOB: [birth year] (83 yo F)Acc No.[id number]:02/23/2024 Patient:?Dodie Watson :1940???Age:83 Y???Sex:Female Address:[address] [place] [address] * true * Date:? Generated for Geminii regis/Jaime/eTransmitting on:?12/20/2024 09:39 AM EST
[2024-12-20 11:47] LABS: Alanine Aminotransferase 30 U/L (0-31); Anion Gap 11 (12-20); Aspartate Amino Transferase 42 U/L (5-31); Blood Urea Nitrogen 19 mg/dL (9-16); Calcium 9.9 mg/dL (8.4-10.2); Carbon Dioxide 23 mmol/L (22-29); Chloride 95 mmol/L (96-108); Cholesterol 170 mg/dL (<200); Estimated Glomerular Filt Rate 41; Glucose Fasting 100 mg/dL (60-99); HDL Cholesterol 70 mg/dL (>40); LDL Cholesterol Calculated 83 mg/dL (<100); Potassium 4.8 mmol/L (3.3-5.1); Sodium 124 mmol/L (135-145); Thyroid Stimulating Hormone 3.17 uIU/mL (0.32-4.0); Triglycerides 85 mg/dL (<150); Vitamin D 25-OH Total 73.5 ng/mL (>30)
== END 2024-12-20 09:15 | disposition home or self-care (01) ==
LOC: HO.HMGCLDS 09:14
PROVIDERS: PCP Internal Medicine; Visit Provider Internal Medicine
DX: I10 Essential (primary) hypertension (principal); Z78.0 Asymptomatic menopausal state; M85.89 Other specified disorders of bone density and structure, multiple sites; E03.9 Hypothyroidism, unspecified; E78.5 Hyperlipidemia, unspecified
CPT/HCPCS: 36415; 80048; 80061; 82306; 84439; 84443; 84450; 84460

== ENCOUNTER 2025-01-06 09:09 | Outpatient (REF) | payer MEDICARE, SELFPAY ==
--- OUTSIDE RECORDS SUMMARY | 2025-01-06 09:46 | XMS_ITS | Patient Health Record ---
Author Organization [facility] Address [address] [place] [address] Care Team Providers Care Wire Preparation Worker Name Role Phone Austen JEREZ, Clarice Cantor Primary Care Provider Un available Lorenakwaku Herlinda Unavailable [phone] Allergies Allergen (clinical drug ingredient) Drug/Non Drug [...] Problem Status W/U Status Risk Notes Problem 89366066 Plantar wart (B07.0) Active confirmed Problem 307743033985438 Hallux valgus (acquired), right foot (M20.11) Active confirmed Problem 910046655 Hammer toe of right foot (M20.41) Active confirmed Problem 651134362 Hammer toe of le ft foot (M20.42) Active confirmed Problem 952984412 Hallux rigidus o f right foot (M20.21) Active confirmed Problem 261806018812375 Osteoarthritis o f right ankle and foot (M19.071) Active confirmed Problem 969250309 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) Active confirmed Encounters Encounter Location Date Provider Diagnosis [facility] [place] [address] [place] [address] 02/23/2024 Herlinda Doll Plan Of Treatment Pending [...] Medicare National Govt Svcs Inc [address] [place] [address] [id number] Dodie Watson Self - patient is the insured [employer] Blue Shield [address] [place] [address] [phone] [id number] Dodie Watson Self - patient is the insured Medical (General) History Medical History History ICD Code Glaucoma Reflux ( GERD) thyroid Chicken pox Surgical History Surgery Date(Month/Year) ovary removal surgery colonoscopy
--- OUTSIDE RECORDS SUMMARY | 2025-01-06 09:46 | XMS_ITS ---
Author Organization [facility] Address [address] [place] [address] Care Team Providers Care Electric Switch Repairer Name Role Phone Austen JEREZ, Clarice Cantor Primary Care Provider Un available Herlinda Doll Unavailable [phone] REASON FOR VISIT cx appt 03/05 Encounters Encounter Location Date Provider Diagnosis [facility] [address] [place] [address] 02/23/2024 Herlinda Doll Plan Of Treatment No Information Progress Notes * Dodie WATSON ADOB: [birth year] (83 yo F)Acc No.[id number]:02/23/2024 Patient:?Dodie Watson :1940???Age:83 Y???Sex:Female Address:[address] [place] [address] * true * Date:? Generated for Geminii regis/Jaime/eTransmitting on:?01/06/2025 09:46 AM EST
--- OUTSIDE RECORDS SUMMARY | 2025-01-06 09:46 | XMS_ITS ---
[facility] Address [address] [place] [address] Care Team Providers Care Yeast Stacker Name Role Phone Austen JEREZ, Clarice Cantor Primary Care Provider Un available Herlinda Doll Unavailable [phone] Allergies Allergen (clinical drug ingredient) Drug/Non Drug [...] 024 Encounters Encounter Location Date Provider Diagnosis [facility] [address] [place] [address] 12/19/2023 Herlinda Doll Pain in right foot [...] Dodie WATSON ADOB: [birth year] (83 yo F)Acc No.[id number]:12/19/2023 Progress Notes Patient:?Dodie Watson Provider:?Herlinda Doll DPM :1940???Age:83 Y???Sex:Female D ate:12/19/2023 Address:[address] [place], [place] [id number] Pcp:Chio Lopes Subjective: * Chief Complaints: * [...] ray : Foot, right 3V * Procedure Codes:?27891 X-RAY EXAM OF RIGHT FOOT 3V, Modifiers: [...] Doll, MARGA Date:?04/2024 Generated for Graciela stacy/Jaime/Jackelin on:?01/06/2025 09:46 AM EST History and Physical Notes * [...]
--- OUTSIDE RECORDS SUMMARY | 2025-01-06 09:47 | XMS_ITS ---
Author Organization [facility] Address [address] [place] [address] Care Team Providers Care Head Inspector Name Role Phone Austen JEREZ, Clarice Cantor Primary Care Provider Un available Herlinda Doll Unavailable [phone] Encounters Encounter Location Date Provider Diagnosis [facility] [address] [place] [address] 03/05/2024 Herlinda Doll Plan Of Treatment No Information Progress Notes * Dodie WATSON ADOB: [birth year] (84 yo F)Acc No.[id number]:03/05/2024 Progress Note Patient:?Dodie WATSON Provider:?Herlinda Doll DPM :1940???Age:83 Y???Sex:Female D ate:03/05/2024 Address:[address] [place], [place] [id number] Pcp:Chio Lopes Subjective: * Chief Complaints: * ??? * Medical History:? Objective: * Vitals:? Assessment: Plan: * Treatment: * Images: * The named appointment provid er may or may not be the originator of this progress note, and it is not deemed complete until electronically signed by the appointment provider. Sign off status: Pending * Provider:?Herlinda Doll DPM Date:? Generated for Graciela stacy/Jaime/eTransmitting on:?01/06/2025 09:46 AM EST
[2025-01-06 11:02] LABS: Anion Gap 11 (12-20); Blood Urea Nitrogen 13 mg/dL (9-16); Calcium 9.3 mg/dL (8.4-10.2); Carbon Dioxide 26 mmol/L (22-29); Chloride 96 mmol/L (96-108); Estimated Glomerular Filt Rate 58; Glucose Random 104 mg/dL (60-115); Potassium 4.3 mmol/L (3.3-5.1); Sodium 129 mmol/L (135-145)
== END 2025-01-06 09:10 | disposition home or self-care (01) ==
LOC: HO.HMGCLDS 09:09
PROVIDERS: PCP Internal Medicine; Visit Provider Internal Medicine
DX: E87.1 Hypo-osmolality and hyponatremia (principal)
CPT/HCPCS: 36415; 80048

== ENCOUNTER 2025-01-20 07:34 | Outpatient (REF) | payer MEDICARE, SELFPAY ==
--- OUTSIDE RECORDS SUMMARY | 2025-01-20 07:38 | XMS_ITS ---
Author Organization [facility] Address [address] [place] [address] Care Team Providers Care Assistant Signal Maintainer Name Role Phone Austen JEREZ, Clarice Cantor Primary Care Provider Un available Herlinda Doll Unavailable [phone] REASON FOR VISIT cx appt 03/05 Encounters Encounter Location Date Provider Diagnosis [facility] [address] [place] [address] 02/23/2024 Herlinda Doll Plan Of Treatment No Information Progress Notes * Dodie WATSON ADOB: [birth year] (83 yo F)Acc No.[id number]:02/23/2024 Patient:?Dodie Watson :1940???Age:83 Y???Sex:Female Address:[address] [place] [address] * true * Date:? Generated for Printi regis/Jaime/eTransmitting on:?01/20/2025 07:37 AM EDT
--- OUTSIDE RECORDS SUMMARY | 2025-01-20 07:38 | XMS_ITS ---
Author Organization [facility] Address [address] [place] [address] Care Team Providers Care Real Estate Sales Associate Name Role Phone Austen JEREZ, Clarice Cantor Primary Care Provider Un available Herlinda Doll Unavailable [phone] Encounters Encounter Location Date Provider Diagnosis [facility] [address] [place] [address] 03/05/2024 Herlinda Doll Plan Of Treatment No Information Progress Notes * Dodie WATSON ADOB: [birth year] (84 yo F)Acc No.[id number]:03/05/2024 Progress Note Patient:?Dodie WATSON Provider:?Herlinda Doll DPM :1940???Age:83 Y???Sex:Female D ate:03/05/2024 Address:[address] [place], [place] [id number] Pcp:Chio Lopes Subjective: * Chief Complaints: * ??? * Medical History:? Objective: * Vitals:? Assessment: Plan: * Treatment: * Images: * The named appointment provid er may or may not be the originator of this progress note, and it is not deemed complete until electronically signed by the appointment provider. Sign off status: Pending * Provider:?Herlinda Doll DPM Date:? Generated for Graciela stacy/Jaime/eTransmitting on:?01/20/2025 07:37 AM EDT
--- OUTSIDE RECORDS SUMMARY | 2025-01-20 07:38 | XMS_ITS ---
Author [facility] Address [address] [facility] [place] [address] Care Team Providers Care Field Artillery Operations Man Name Role Phone Austen JEREZ, Clarice Cantor Primary Care Provider Un available Herlinda Doll Unavailable [phone] Allergies Allergen (clinical drug ingredient) Drug/Non Drug [...] 024 Encounters Encounter Location Date Provider Diagnosis [facility] [address] [place] [address] 12/19/2023 Herlinda Doll Pain in right foot [...] Dodie WATSON ADOB: [birth year] (83 yo F)Acc No.[id number]:12/19/2023 Progress Notes Patient:?Dodie Watson Provider:?Herlinda Doll DPM :1940???Age:83 Y???Sex:Female D ate:12/19/2023 Address:[address] [place], [place] [id number] Pcp:Chio Lopes Subjective: * Chief Complaints: * [...] ray : Foot, right 3V * Procedure Codes:?09790 X-RAY EXAM OF RIGHT FOOT 3V, Modifiers: [...] Doll, MARGA Date:?04/2024 Generated for Graciela stacy/Jaime/Jackelin on:?01/20/2025 07:37 AM EDT History and Physical Notes * HPI (History [...]
[2025-01-20 10:41] LABS: Anion Gap 9 (12-20); Blood Urea Nitrogen 9 mg/dL (9-16); Calcium 9.2 mg/dL (8.4-10.2); Carbon Dioxide 29 mmol/L (22-29); Chloride 106 mmol/L (96-108); Estimated Glomerular Filt Rate > 60; Glucose Random 90 mg/dL (60-115); Potassium 3.9 mmol/L (3.3-5.1); Sodium 140 mmol/L (135-145)
== END 2025-01-20 07:35 | disposition home or self-care (01) ==
LOC: HO.HMGCLDS 07:34
PROVIDERS: PCP Internal Medicine; Visit Provider Internal Medicine
DX: E87.1 Hypo-osmolality and hyponatremia (principal)
CPT/HCPCS: 36415; 80048

== ENCOUNTER 2025-01-28 10:00 | Outpatient (RCR) | payer MEDICARE, SELFPAY ==
--- NOTE | 2024-12-23 10:06 | MHC.PT.EP ---
[facility] [place] [facility] [place] [facility] [place] [facility] [address] [phone] F: [phone] F: [phone] F: [phone] F: [phone] Physical Therapy Plan of Care Date of Evaluation: 12/23/24 Date of Surgery: Diagnosis: This is an 84 yo female presenting to skilled PT with a script for unsteady gait. Assessment: This is an 84 yo female presenting to skilled PT with a script for unsteady gait. Patient reporting 3 falls in the last month. The first fall was when she tripped and does not remember the incident, the second fall she landed on her knee and then the third time she fell in the garage and had a hard time getting off the floor (it took her about 15 mins) due to leg strength. She does not have any pain from the falls. She also reports that she does not feel unsteady on her feet but her MD thinks she should come in for leg strengthening and balance work. She does not walk with an AD but is contemplating use of a straight cane. She is I in ADLs and driving. She enjoys walking outdoors when the weather is nice. Assessment reveals pain that ranges from up to a 2/10 at the worst. Patient demos decreased B LE ROM and strength, impaired balance and gait noted with DGI and Joan SOPT and TUG and impaired posture with forward head and rounded shoulders. Based on functional limitations, impaired QOL and pain tolerance patient is a good candidate for skilled PT 2x/wk for 4wks. Frequency and Duration: The patient will be seen 2x/wk for 4wks Short Term Goals: Pt will demonstrate improved postural awareness and understanding of core engagement with supine and standing tasks without cues throughout session to improve balance safety as well as improve strength in 2 weeks. Pt will continue to reinforce precautions, sitting, standing and ADL modifications with proper body mechanics and prevent falls in 2 wks. Curriculum Advisory Teacher Goals: Pt will demonstrate improved outcome measure by 5 points in 4 weeks for improved functional mobility. Pt will demonstrate ability to bend and lift WNL min to no pain for household tasks in 4 wks. Pt will be I in HEP and compliant in 4wks Pt will be able to get off of the floor within 3 mins by self. Treatment Plan: Modalities to reduce pain, spasms and effusion. Manual therapy to restore motion and function. Therapeutic exercise to improve strength and flexibility. Neuromuscular re-education for posture and balance. Therapeutic activities to return to functional activities of daily living. Electronically signed by: April Finch, PT Please sign and return to therapist. Thank you for your referral.
--- NOTE | 2025-02-26 14:30 | MHC.PT.DC ---
[facility] [place] [facility] [place] [facility] [place] [facility] [address] Dre Boogie [address] [facility] [phone] F: [phone] F: [phone] F: [phone] F: [phone] Physical Therapy Discharge Report Diagnosis: This is an 84 yo female presenting to skilled PT with a script for unsteady gait. Date of Surgery: Date of Evaluation: 12/23/24 Date of Discharge: 02/26/25 Treatments to Date: 5 Cancellations to Date: 0 No Shows to Date: 0 Discharge Status: Independent with HEP Patient Elected to Stop Discharge Summary: 01/28: Patient has come to 5 sessions of PT. As she is easily confused, I provided her with an HEP that she can follow with ease and does not have questions on. At this point she subjectively feels like her legs are stronger and her balance is better with ambulation. DC to HEP. Electronically signed by: April Finch PT Please sign and return to therapist. Thank you for your referral.
== END 2025-02-26 14:30 | disposition home or self-care (01) ==
LOC: HO.PTCHIC 10:00
PROVIDERS: PCP Internal Medicine; Visit Provider Internal Medicine
DX: R26.81 Unsteadiness on feet (principal); R26.89 Other abnormalities of gait and mobility; Z91.81 History of falling
CPT/HCPCS: 97110; 97162

== ENCOUNTER 2025-02-27 09:09 | Outpatient (AMB) | payer MEDICARE, SELFPAY ==
[2025-02-27 09:29] VITALS: BP 142/70; PULSE 81; RESP 15; TEMP 36.7; O2SAT 98; BMI 24.6
--- NOTE | 2025-02-27 09:29 | A.OFFPC_ITS ---
Vital Signs 02/27/25 09:29 Height 5 ft 5.5 in Weight 150 lb BMI 24.6 BP 142/70 H Blood Pressure Location Lt brachial Position Sitting Respiration 15 Pulse 81 Pulse Source Pulse Oximeter Temp 98.0 F Temp Source Oral Pulse Oximetry (%) 98 Oxygen Delivery Method Room Air Intake Visit Reasons: memory issues Intake Note: Pt is here today to discuss memory issues Allergies amoxicillin Adverse Reaction (Unknown, Verified 02/27/25 09:32) yeast infection codeine Adverse Reaction (Unknown, Verified 02/27/25 09:32) vomiting bactrim Adverse Reaction (Uncoded 02/27/25 09:32) Confusion Tobacco use date assessed: 02/27/25 Fall risk assessment: 2 + Falls in past year Last assessed Fall Risk: 02/27/25 Dental Screening Dental Screen Date: 02/27/25 Did you have a dental visit in the last 12 months?: Yes Did you have a dental problem in the last 6 months where you did not have access to dental care?: No Was dental information given to patient?: Patient has dentist [facility] Medical History (Updated 12/31/24 @ 12:37 by Clarice Boyce MD) Contusion of left knee, initial encounter Rosacea Stress fracture of right foot Essential hypertension External hemorrhoids without complication Recurrent insomnia Postmenopause Anxiety disorder Menopause Osteopenia of multiple sites Dyslipidemia Ovarian cyst Migraine Esophagitis Acquired hypothyroidism Surgical History S/P dilatation of esophageal stricture History of salpingo-oophorectomy Family History Father Smoker Lung cancer Mother Multiple myeloma Social History Housing: House Alcohol intake: current Patient Tobacco Use Status: Never used Tobacco e-Cigarette/Vaping Use: Never Used Second Hand Smoke Exposure: No service: No Current occupational status: retired Cognitive needs: No Hearing needs: No Vision needs: Yes Questionnaire Thrive Questionnaire Date Thrive assessed: 02/27/25 I am a: Patient What is your living situation today?: I have a steady place to live Within the past 12 months, did the food you bought not last and you didn't have the money to get more?: Never true Within the past 12 months, did you worry whether your food would run out before you got money to buy more?: Never true Do you have trouble paying for medicines?: No Do you have trouble getting transportation to medical appointments?: No Do you have trouble paying your heating and electricity bill?: No Do you have trouble taking care of your child, family member or friend?: No Do you have trouble with day-to-day activities such as bathing, preparing meals, shopping, managing finances, etc.?: No Are you currently unemployed and looking for a job?: No Are you interested in more education?: No Please select the resources that you would like help with: None Currently or been in a relationship where the following occur: No concerns reported THRIVE Score: 0 AUDIT C Alcohol Use Questionnaire (AUDIT-C) 1. How often do you have a drink containing alcohol?: Monthly or less 2. How many drinks containing alcohol do you have on a typical day when you are drinking?: 1 or 2 3. How often do you have six or more drinks on one occasion?: Never Total Score: 1 FREDRICK-7 AMB Questionnaire FREDRICK-7 Date FREDRICK - 7 assessed: 01/08/24 Source: Developed by Drs. Stan Long, Kika Will, Edward Rutherford and colleagues, with an educational cristian from [employer]. Physical exam (Primary Care) Tobacco/Smoking Status: Tobacco use Status Tobacco use date assessed 09/26/24 12/12/24 10:17 Patient Tobacco Use Status Never used Tobacco 12/12/24 10:46 e-Cigarette/Vaping Use Never Used 12/12/24 10:17 Thrive Assessment: Date of Thrive Assessment Date Thrive assessed 02/27/25 02/27/25 09:09 Currently or been in a relationship where the following occur: No concerns reported Coding
--- NOTE | 2025-02-27 09:54 | A.OFFPC_ITS ---
Vital Signs 02/27/25 09:29 Height 5 ft 5.5 in Weight 150 lb BMI 24.6 BP 142/70 H Blood Pressure Location Lt brachial Position Sitting Respiration 15 Pulse 81 Pulse Source Pulse Oximeter Temp 98.0 F Temp Source Oral Pulse Oximetry (%) 98 Oxygen Delivery Method Room Air Intake Visit Reasons: memory issues Allergies amoxicillin Adverse Reaction (Unknown, Verified 03/02/25 18:25) yeast infection codeine Adverse Reaction (Unknown, Verified 03/02/25 18:25) vomiting bactrim Adverse Reaction (Uncoded 03/02/25 18:25) Confusion Medication List - Last Reconciled 02/27/25 by Clarice Boyce MD atorvastatin 10 mg PO MOWEFR 3 months brimonidine 0.2% 1 drp ophthalmic (eye) Q8H butterbur root extract 50 mg PO DAILY cetirizine (Zyrtec) 10 mg PO DAILY PRN cholecalciferol (vitamin D3) 25 mcg PO DAILY doxepin 6 mg PO BEDTIME PRN latanoprost 0.005% drps ophthalmic (eye) levothyroxine 75 mcg PO QAM lisinopril 20 mg PO DAILY lorazepam 0.5 mg PO DAILY PRN omeprazole 20 mg PO DAILY Tobacco use date assessed: 09/26/24 Dental Screening Dental Screen Date: 09/26/24 HPI memory issues HPI Details 54-year-old lady with history of dyslipi demia, hypothyroidism, hypertension and anxiety disorder, here today complaining of having problems with memory. Patient states that she has been getting forgetful now, would go to a room and forget what she was supposed to get there. Patient however does not forget names, but would occasionally have to pause to try to remember what she wanted to say at times. She drives, but stays local, afraid that something might happen if she goes on long drives out of state. Other than that she has been feeling well. Has been compliant with taking her medications, with latest fasting labs showing lipids, thyroid levels fasting glucose within normal limits. [facility] Medical History (Updated 02/27/25 @ 10:17 by Clarice Boyce MD) Anxiety disorder Contusion of left knee, initial encounter Rosacea Stress fracture of right foot Essential hypertension External hemorrhoids without complication Recurrent insomnia Postmenopause Menopause Osteopenia of multiple sites Dyslipidemia Ovarian cyst Migraine Esophagitis Acquired hypothyroidism Surgical History S/P dilatation of esophageal stricture History of salpingo-oophorectomy Family History Father Smoker Lung cancer Mother Multiple myeloma Social History Housing: House Alcohol intake: current Patient Tobacco Use Status: Never used Tobacco e-Cigarette/Vaping Use: Never Used Second Hand Smoke Exposure: No service: No Current occupational status: retired Cognitive needs: No Hearing needs: No Vision needs: Yes Questionnaire Thrive Questionnaire Date Thrive assessed: 01/08/24 I am a: Patient What is your living situation today?: I have a steady place to live Within the past 12 months, did the food you bought not last and you didn't have the money to get more?: Never true Within the past 12 months, did you worry whether your food would run out before you got money to buy more?: Never true Do you have trouble paying for medicines?: No Do you have trouble getting transportation to medical appointments?: No Do you have trouble paying your heating and electricity bill?: No Do you have trouble taking care of your child, family member or friend?: No Do you have trouble with day-to-day activities such as bathing, preparing meals, shopping, managing finances, etc.?: No Are you currently unemployed and looking for a job?: No Are you interested in more education?: No Please select the resources that you would like help with: None Currently or been in a relationship where the following occur: No concerns reported THRIVE Score: 0 AUDIT C Alcohol Use Questionnaire (AUDIT-C) 1. How often do you have a drink containing alcohol?: Monthly or less 2. How many drinks containing alcohol do you have on a typical day when you are drinking?: 1 or 2 3. How often do you have six or more drinks on one occasion?: Never Total Score: 1 FREDRICK-7 AMB Questionnaire FREDRICK-7 Date FREDRICK - 7 assessed: 01/08/24 Source: Developed by Drs. Stan Long, Kika Will, Edward Rutherford and colleagues, with an educational cristian from [employer]. Review of Systems Const Reports no additional complaints and Denies headache(s) Eyes Denies change in vision ENT Reports no additional complaints, Denies dizziness, Denies headache(s) and Denies disequilibrium Card Denies chest pain, Denies chest pain with activity, Denies irregular heart rhythm, Denies palpitations and Denies dyspnea Resp Denies dyspnea GI Reports no additional complaints Reports no additional complaints Musc Reports stiffness Neuro Denies Abnormal speech present, Denies behavioral changes, Denies confusion, Denies dizziness, Denies headache(s), Denies seizure-like activity and Denies disequilibrium Psych Reports no additional complaints, Denies behavioral changes and Denies confusion Endo Denies palpitations Anthony/Lymph Denies easy bleeding and Denies easy bruising Aller/Immun Reports no additional complaints Physical exam (Primary Care) Vital Signs: Last Vital Signs Temp 98.0 F 02/27/25 09:29 Pulse 81 02/27/25 09:29 Resp 15 02/27/25 09:29 BP 142/70 H 02/27/25 09:29 Pulse Ox 98 02/27/25 09:29 Oxygen Delivery Method Room Air 02/27/25 09:29 BMI result Body Mass Index 24.6 Tobacco/Smoking Status: Tobacco use Status Tobacco use date assessed 09/26/24 02/27/25 10:16 Patient Tobacco Use Status Never used Tobacco 02/27/25 10:16 e-Cigarette/Vaping Use Never Used 02/27/25 10:16 Thrive Assessment: Date of Thrive Assessment Date Thrive assessed 01/08/24 02/27/25 10:16 Currently or been in a relationship where the following occur: No concerns reported Const Other: Alert oriented x3, no acute cardiorespiratory distress, ambulatory with normal gait General: No confusion Orientation/consciousness: No confusion HENMT Mouth: Normal oral and palatal mucosa present, oropharynx normal and moist mucous membranes Eyes General: appearance normal, both eyes and all related structures Neck Other: Supple, no lymphadenopathy, thyroid gland nonpalpable Resp Other: Clear to auscultation bilaterally Cardio Other: S1-S2 present, regular rate and rhythm GI Inspection: Yes normal to inspection Palpation (GI): Soft to palpation, nontender, no guarding and no masses Auscultation: normal bowel sounds General: Yes no CVA tenderness Back/Spine/Pelvis Back: no CVA tenderness and No back tenderness Neuro Other: Scored 30/30 , which was normal, on her mini-mental status exam General: No confusion Speech: No Abnormal speech present Extrem General: Yes full ROM, Yes no joint enlargement, Yes no clubbing, cyanosis or edema and Yes normal gait Results Reviewed Results Reviewed: Name: Dodie Watson Age/Sex: 84/F : 1940 Unit#: [id number] Attend Dr: Clarice Boyce MD Re01/20/25 Status: DEP [facility] Disch: SPEC : [id number] SHELLI: 01/20/25 STATUS: COMP REQ : [id number] RECD: 01/20/25-[address]: Clarice Boyce MD COMP: 01/20/25 ENTERED: 01/20/[address]: ORDERED: BMP Test Result Flag Reference Sodium 140 135-145 mmol/L Potassium 3.9 3.3-5.1 mmol/L CL 106 96-108 mmol/L CO2 29 22-29 mmol/L Gap 9 L 12-20 BUN 9 9-16 mg/dL Creat 0.78 0.5-1.4 mg/dL eGFR > 60 Chronic Kidney Disease: Estimated GFR < 60 mL/min/1.73m2 Severe Kidney Disease: Estimated GFR < 15 mL/min/1.73m2 Glucose, Random 90 60-115 mg/dL CA 9.2 8.4-10.2 mg/dL Name: Dodie Watson Age/Sex: 84/F : 1940 Unit#: [id number] Attend Dr: Clarice Boyce MD Re12/20/24 Status: DEP REF Location: [facility] Dis ch: SPEC : [id number] SHELLI: 12/20/24 STATUS: COMP REQ : [id number] RECD: 12/20/[address]: Clarice Boyce MD COMP: 12/20/24114 ENTERED: 12/20/[address]: ORDERED: Met Prof Fast, AST, ALT, Lipid Panel, Vitamin D 25-OH, Free T4, TSH Test Result Flag Reference FBS 100 H 60-99 mg/dL A fasting glucose from 100-125 mg/dl is considered impaired (pre-diabetes). CA 9.9 # 8.4-10.2 mg/dL AST (GOT) 42 H 5-31 U/L ALT (GPT) 30 0-31 U/L Triglyceride 85 <150 mg/dL Desirable Triglyceride: less than 150 mg/dL Borderline High Triglyceride 150-199 mg/dL High Triglyceride: 200-499 mg/dL Very High Triglyceride: greater than or equal to 5OO mg/dL Cholesterol 170 <200 mg/dL Desirable Cholesterol: less than 200 mg/dL Borderline High Cholesterol: 200-239 mg/dL High Cholesterol: greater than 239 mg/dL LDL Calculated 83 <100 mg/dL Desirable LDL: less than 100 mg/dL Near Optimal/Above Optimal LDL: 110-129 mg/dL Borderline High LDL: 130-159 mg/dL High LDL: 160-189 mg/dL Very High LDL: greater than or equal to 190 mg/dL HDL 70 >40 mg/dL Desirable HDL: greater than 40 mg/dL Note: This HDL assay may give artificially low results in patients with liver disease. Vit D 25-OH Tot 73.5 >30 ng/mL Health Based Reference Values* < 20 ng/mL Deficient 20-30 ng/mL Insufficient > 30 ng/mL Sufficient *Jeanie WELLS. N Engl J Med. 2007;357:266-280 Care must be taken in interpreting Vitamin D results from different laboratories and methodologies. Published data demonstrated that results from patients undergoing hemodialysis may show a negative bias when tested with various automated 25-OH vitamin D assays when compared to LC-MS/MS. When testing samples from patients whose predominant form of Vitamin D is Vitamin D2, such as patients receiving Vitamin D2 supplementation, results that are subtherapeutic should be confirmed with another method such as LC-MS/MS. Free T4 1.10 0.71-1.85 ng/dL TSH 3rd Gen. 3.17 0.32-4.0 uIU/mL Note: A sustained TSH level above 2.5 uIU/mL may warrant further investigation. TSH 3rd Generation ([facility]) Coding Level of Care Code Est Pt Level 4 (52901) Complex EM visit Add On G2211 Diagnoses Acquired hypothyroidism E03.9 Dyslipidemia E78.5 Generalized anxiety disorder F41.1 Anxiety disorder type: generalized anxiety disorder Essential hypertension I10 Assessment & Plan Assessment & Plan (1) Acquired hypothyroidism: Code(s): E03.9 - Hypothyroidism, unspecified Category: Medical Plan: Latest thyroid levels are within normal limits, continue with levothyroxine 75 mcg taken once a day in a.m. an hour before breakfast (2) Dyslipidemia: Code(s): E78.5 - Hyperlipidemia, unspecified Category: Medical Plan: Reviewed recent fasting lipid profile with patient with levels within normal limit . Continue atorvastatin 10 mg 3 times a week , in addition to adherence to low-cholesterol diet and regular exercise, at least 30 minutes 3 to 4 times a week. Advised patient to make healthy food choices, eat more fruits, vegetables, whole grains, wild caught fish and low-fat dairy. Limit amount of meat and fried or fatty food products, as well as processed foods and fast foods. (3) Anxiety disorder: Code(s): F41.9 - Anxiety disorder, unspecified Category: Medical Qualifiers: Anxiety disorder type: generalized anxiety disorder Qualified Code(s): F41.1 - Generalized anxiety disorder Plan: Takes an occasional lorazepam as needed for acute anxiety attacks (4) Essential hypertension: Code(s): I10 - Essential (primary) hypertension Category: Medical Plan: Continue on lisinopril 20 mg daily, reinforced importance of following a low- salt diet and getting regular exercise. Blood pressure today is mildly elevated, will have her come back in in a week to check her blood pressure, advised to bring her blood pressure monitor with her for comparison Orders: Orders Thyroid Stimulating Hormone 03/13/25 E03.9 - Hypothyroidism, unspecified, E78.5 - Hyperlipidemia, unspecified, F41.1 - Generalized anxiety disorder, I10 - Essential (primary) hypertension, M85.89 - Other specified disorders of bone density and structure, multiple sites, Z78.0 - Asymptomatic menopausal state Free T4 (Free Thyroxine) 03/13/25 E03.9 - Hypothyroidism, unspecified, E78.5 - Hyperlipidemia, unspecified, F41.1 - Generalized anxiety disorder, I10 - Essential (primary) hypertension, M85.89 - Other specified disorders of bone density and structure, multiple sites, Z78.0 - Asymptomatic menopausal state Basic Metabolic Panel Fasting 03/13/25 E03.9 - Hypothyroidism, unspecified, E78.5 - Hyperlipidemia, unspecified, F41.1 - Generalized anxiety disorder, I10 - Essential (primary) hypertension, M85.89 - Other specified disorders of bone density and structure, multiple sites, Z78.0 - Asymptomatic menopausal state Alanine Aminotransferase 03/13/25 E03.9 - Hypothyroidism, unspecified, E78.5 - Hyperlipidemia, unspecified, F41.1 - Generalized anxiety disorder, I10 - Essential (primary) hypertension, M85.89 - Other specified disorders of bone density and structure, multiple sites, Z78.0 - Asymptomatic menopausal state Lipid Panel 03/13/25 E03.9 - Hypothyroidism, unspecified, E78.5 - Hyperlipidemia, unspecified, F41.1 - Generalized anxiety disorder, I10 - Essential (primary) hypertension, M85.89 - Other specified disorders of bone density and structure, multiple sites, Z78.0 - Asymptomatic menopausal state Vitamin D 25-OH Total 03/13/25 E03.9 - Hypothyroidism, unspecified, E78.5 - Hyperlipidemia, unspecified, F41.1 - Generalized anxiety disorder, I10 - Essential (primary) hypertension, M85.89 - Other specified disorders of bone density and structure, multiple sites, Z78.0 - Asymptomatic menopausal state Aspartate Amino Transferase 03/13/25 E03.9 - Hypothyroidism, unspecified, E78.5 - Hyperlipidemia, unspecified, F41.1 - Generalized anxiety disorder, I10 - Essential (primary) hypertension, M85.89 - Other specified disorders of bone density and structure, multiple sites, Z78.0 - Asymptomatic menopausal state
--- OUTSIDE RECORDS SUMMARY | 2025-02-27 10:07 | XMS_ITS | Patient Health Record ---
[facility] Organization [facility] Address [address] [place] [address] Care Team Providers Care Scraper Loader Operator Name Role Phone Austen JEREZ, Clarice Cantor Primary Care Provider Un available Lorenakwaku Herlinda Unavailable [phone] Allergies Allergen (clinical drug ingredient) Drug/Non Drug [...] Problem Status W/U Status Risk Notes Problem 10400880 Plantar wart (B07.0) Active confirmed Problem 469121751550032 Hallux valgus (acquired), right foot (M20.11) Active confirmed Problem 964667098 Hammer toe of right foot (M20.41) Active confirmed Problem 618479377 Hammer toe of le ft foot (M20.42) Active confirmed Problem 416563734 Hallux rigidus o f right foot (M20.21) Active confirmed Problem 800334869688191 Osteoarthritis o f right ankle and foot (M19.071) Active confirmed Problem 945293141 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 [address] [id number] Dodie Watson Self - patient is the insured [employer] [address] [place] [address] [phone] [id number] Dodie Watson Self - patient is the insured Medical (General) History Medical History History ICD Code Glaucoma Reflux ( GERD) thyroid Chicken pox Surgical History Surgery Date(Month/Year) ovary removal surgery colonoscopy
--- OUTSIDE RECORDS SUMMARY | 2025-02-27 10:08 | XMS_ITS ---
Author Organization [facility] Address [address] [place] [address] Care Team Providers Care Corner Trimmer Operator Name Role Phone Austen JEREZ, Clarice Cantor Primary Care Provider Un available Herlinda Doll Unavailable [phone] REASON FOR VISIT cx appt 03/05 Encounters Encounter Location Date Provider Diagnosis [facility] [address] [place] [address] 02/23/2024 Herlinda Doll Plan Of Treatment No Information Progress Notes * Dodie WATSON ADOB: [birth year] (83 yo F)Acc No.[id number]:02/23/2024 Patient:?Dodie Watson :1940???Age:83 Y???Sex:Female Address:[address] [place] [address] * true * Date:? Generated for Printi regis/Jaime/eTransmitting on:?02/27/2025 10:07 AM EDT
--- OUTSIDE RECORDS SUMMARY | 2025-02-27 10:08 | XMS_ITS ---
[facility] Address [address] [facility] [place] [address] Care Team Providers Care Interactive Media Project Manager Name Role Phone Austen JEREZ, Clarice Cantor Primary Care Provider Un available Herlinda Doll Unavailable [phone] Allergies Allergen (clinical drug ingredient) Drug/Non Drug [...] 024 Encounters Encounter Location Date Provider Diagnosis [facility] [address] [place] [address] 12/19/2023 Herlinda Doll Pain in right foot [...] Dodie WATSON ADOB: [birth year] (83 yo F)Acc No.[id number]:12/19/2023 Progress Notes Patient:?Dodie Watson Provider:?Herlinda Doll DPM :1940???Age:83 Y???Sex:Female D ate:12/19/2023 Address:[address] [place], [place] [id number] Pcp:Chio Lopes Subjective: * Chief Complaints: * [...] ray : Foot, right 3V * Procedure Codes:?06846 X-RAY EXAM OF RIGHT FOOT 3V, Modifiers: [...] Doll, MARGA Date:?04/2024 Generated for Graciela stacy/Jaime/Jackelin on:?02/27/2025 10:07 AM EDT History and Physical Notes * [...]
--- OUTSIDE RECORDS SUMMARY | 2025-02-27 10:08 | XMS_ITS ---
Author Organization [facility] Address [address] [place] [address] Care Team Providers Care Plaster Lather Name Role Phone Austen JEREZ, Clarice Cantor Primary Care Provider Un available Herlinda Doll Unavailable [phone] Encounters Encounter Location Date Provider Diagnosis [facility] [address] [place] [address] 03/05/2024 Herlinda Doll Plan Of Treatment No Information Progress Notes * Dodie WATSON ADOB: [birth year] (84 yo F)Acc No.[id number]:03/05/2024 Progress Note Patient:?Dodie WATSON Provider:?Herlinda Doll DPM :1940???Age:83 Y???Sex:Female D ate:03/05/2024 Address:[address] [place], [place] [id number] Pcp:Chio Lopes Subjective: * Chief Complaints: * ??? * Medical History:? Objective: * Vitals:? Assessment: Plan: * Treatment: * Images: * The named appointment provid er may or may not be the originator of this progress note, and it is not deemed complete until electronically signed by the appointment provider. Sign off status: Pending * Provider:?Herlinda Doll DPM Date:? Generated for Graciela stacy/Jaime/eTransmitting on:?02/27/2025 10:08 AM EDT
== END 2025-02-27 10:47 | disposition home or self-care (01) ==
LOC: HO.HMCC 09:10
PROVIDERS: PCP Internal Medicine; Visit Provider Internal Medicine
DX: E03.9 Hypothyroidism, unspecified (principal); E78.5 Hyperlipidemia, unspecified; F41.1 Generalized anxiety disorder; I10 Essential (primary) hypertension

== ENCOUNTER → 2025-02-27 09:09 | Outpatient (BNVA) | payer MEDICARE, SELFPAY | PROVIDERS: PCP Internal Medicine; Visit Provider Internal Medicine | DX: E03.9 Hypothyroidism, unspecified (principal); E78.5 Hyperlipidemia, unspecified; F41.1 Generalized anxiety disorder; I10 Essential (primary) hypertension; Z79.899 Other long term (current) drug therapy | CPT/HCPCS: 99212 ==

== ENCOUNTER 2025-03-06 08:20 | Outpatient (REF) | payer MEDICARE, SELFPAY ==
--- OUTSIDE RECORDS SUMMARY | 2025-03-06 08:39 | XMS_ITS | Patient Health Record ---
Author Organization [facility] Address [address] [facility] [place] [address] Care Team Providers Care Central Office Associate Name Role Phone Austen JEREZ, Clarice Cantor Primary Care Provider Un available Lorenakwaku Herlinda Unavailable [phone] Allergies Allergen (clinical drug ingredient) Drug/Non Drug [...] Problem Status W/U Status Risk Notes Problem 92998826 Plantar wart (B07.0) Active confirmed Problem 578669186819738 Hallux valgus (acquired), right foot (M20.11) Active confirmed Problem 358501726 Hammer toe of right foot (M20.41) Active confirmed Problem 925787118 Hammer toe of le ft foot (M20.42) Active confirmed Problem 789376635 Hallux rigidus o f right foot (M20.21) Active confirmed Problem 513063393607676 Osteoarthritis o f right ankle and foot (M19.071) Active confirmed Problem 200103487 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
--- OUTSIDE RECORDS SUMMARY | 2025-03-06 08:39 | XMS_ITS ---
Author [facility] Address [address] [facility] [place] [address] Care Team Providers Care Administration Professional Name Role Phone Austen JEREZ, Clarice Cantor Primary Care Provider Un available Herlinda Doll Unavailable [phone] Allergies Allergen (clinical drug ingredient) Drug/Non Drug [...] 024 Encounters Encounter Location Date Provider Diagnosis [facility] [place] [address] [place] [address] 12/19/2023 Herlinda Doll Pain in right foot [...] Dodie WATSON ADOB: [birth year] (83 yo F)Acc No.[id number]:12/19/2023 Progress Notes Patient:?Dodie Watson Provider:?Herlinda Doll DPM :1940???Age:83 Y???Sex:Female D ate:12/19/2023 Address:[address] [place], [place] [id number] Pcp:Chio Lopes Subjective: * Chief Complaints: * [...] ray : Foot, right 3V * Procedure Codes:?86616 X-RAY EXAM OF RIGHT FOOT 3V, Modifiers: [...] Doll, MARGA Date:?04/2024 Generated for Graciela stacy/Jaime/Jackelin on:?03/06/2025 08:39 AM EDT History and Physical Notes * [...]
--- OUTSIDE RECORDS SUMMARY | 2025-03-06 08:40 | XMS_ITS ---
Author Organization [facility] Address [address] [place] [address] Care Team Providers Care Forger Helper Name Role Phone Austen JEREZ, Clarice Cantor Primary Care Provider Un available Herlinda Doll Unavailable [phone] Encounters Encounter Location Date Provider Diagnosis [facility] [address] [place] [address] 03/05/2024 Herlinda Doll Plan Of Treatment No Information Progress Notes * Dodie WATSON ADOB: [birth year] (84 yo F)Acc No.[id number]:03/05/2024 Progress Note Patient:?Dodie WATSON Provider:?Herlinda Doll DPM :1940???Age:83 Y???Sex:Female D ate:03/05/2024 Address:[address] [place], [place] [id number] Pcp:Chio Lopes Subjective: * Chief Complaints: * ??? * Medical History:? Objective: * Vitals:? Assessment: Plan: * Treatment: * Images: * The named appointment provid er may or may not be the originator of this progress note, and it is not deemed complete until electronically signed by the appointment provider. Sign off status: Pending * Provider:?Herlinda Doll DPM Date:? Generated for Graciela stacy/Jaime/eTransmitting on:?03/06/2025 08:39 AM EDT
--- OUTSIDE RECORDS SUMMARY | 2025-03-06 08:40 | XMS_ITS ---
Author Organization [facility] Address [address] [place] [address] Care Team Providers Care Business Services Analyst Name Role Phone Austen JEREZ, Clarice Cantor Primary Care Provider Un available Herlinda Doll Unavailable [phone] REASON FOR VISIT cx appt 03/05 Encounters Encounter Location Date Provider Diagnosis [facility] [address] [place] [address] 02/23/2024 Herlinda Doll Plan Of Treatment No Information Progress Notes * Dodie WATSON ADOB: [birth year] (83 yo F)Acc No.[id number]:02/23/2024 Patient:?Dodie Watson :1940???Age:83 Y???Sex:Female Address:[address] [place] [address] * true * Date:? Generated for Printi ng/Fajoneg/eTransmitting on:?03/06/2025 08:39 AM EDT
[2025-03-06 11:08] LABS: Alanine Aminotransferase 16 U/L (0-31); Anion Gap 11 (12-20); Aspartate Amino Transferase 27 U/L (5-31); Blood Urea Nitrogen 18 mg/dL (9-16); Calcium 9.3 mg/dL (8.4-10.2); Carbon Dioxide 28 mmol/L (22-29); Chloride 106 mmol/L (96-108); Cholesterol 171 mg/dL (<200); Estimated Glomerular Filt Rate 60; Glucose Fasting 87 mg/dL (60-99); HDL Cholesterol 65 mg/dL (>40); LDL Cholesterol Calculated 95 mg/dL (<100); Potassium 4.3 mmol/L (3.3-5.1); Sodium 141 mmol/L (135-145); Triglycerides 55 mg/dL (<150)
[2025-03-06 11:24] LABS: Free T4 (Free Thyroxine) 1.16 ng/dL (0.71-1.85); Thyroid Stimulating Hormone 1.05 uIU/mL (0.32-4.0)
== END 2025-03-06 08:21 | disposition home or self-care (01) ==
LOC: HO.HMGCLDS 08:20
PROVIDERS: PCP Internal Medicine; Visit Provider Internal Medicine
DX: I10 Essential (primary) hypertension (principal); M85.89 Other specified disorders of bone density and structure, multiple sites; Z78.0 Asymptomatic menopausal state; E03.9 Hypothyroidism, unspecified; E78.5 Hyperlipidemia, unspecified; F41.1 Generalized anxiety disorder
CPT/HCPCS: 36415; 80048; 80061; 82306; 84439; 84443; 84450; 84460

== ENCOUNTER → 2025-03-13 10:58 | Outpatient (BNVA) | payer MEDICARE, SELFPAY | PROVIDERS: PCP Internal Medicine | DX: Z13.89 Encounter for screening for other disorder (principal) ==

== ENCOUNTER → 2025-04-03 10:57 | Outpatient (BNVA) | payer MEDICARE, SELFPAY | PROVIDERS: PCP Internal Medicine ==

== ENCOUNTER → 2025-04-10 10:24 | Outpatient (BNVA) | payer MEDICARE, SELFPAY | PROVIDERS: PCP Internal Medicine | DX: Z13.89 Encounter for screening for other disorder (principal) ==

== ENCOUNTER → 2025-04-24 09:55 | Outpatient (BNVA) | payer MEDICARE, SELFPAY | PROVIDERS: PCP Internal Medicine | DX: L23.9 Allergic contact dermatitis, unspecified cause (principal); Z01.89 Encounter for other specified special examinations | CPT/HCPCS: 99212 ==

== ENCOUNTER 2025-04-24 10:28 | Outpatient (AMB) | payer MEDICARE, SELFPAY ==
[2025-04-24 10:56] VITALS: BP 138/72; PULSE 93; TEMP 36.7; O2SAT 97; BMI 25.0
--- NOTE | 2025-04-24 10:56 | MHC.OFFWIV ---
Intake Vital Signs 04/24/25 10:56 Height 5 ft 5.5 in Weight 152 lb 8 oz BMI 25.0 BP 138/72 Blood Pressure Location Lt brachial Position Sitting Pulse 93 Pulse Source Pulse Oximeter Temp 98.1 F Temp Source Oral Pulse Oximetry (%) 97 Oxygen Delivery Method Room Air Intake Visit Reasons: EP facial rash/swelling..allergy? Intake Note: Pt presents to the office today for c/o facial rash and swelling since yesterday. Pt states she sees a automatic drilling machine operator Dr. mota. Patient Tobacco Use Status: Never used Tobacco Allergies amoxicillin Adverse Reaction (Unknown, Verified 04/24/25 10:56) yeast infection codeine Adverse Reaction (Unknown, Verified 04/24/25 10:56) vomiting bactrim Adverse Reaction (Uncoded 04/24/25 10:56) Confusion HPI HPI Comments History of Present Illness Details History of Present Illness - The patient is an 84-year-old female presenting with her nurse navigator, Karen, facial swelling and a history of having this reaction after using sunscreens and facial creams in some but not all instances. - Facial swelling episodes began in September, affecting the entire face, particularly from the chin to below the eyes, lasting about five days per episode. - The swelling is accompanied by redness but not pain or significant itching, and resolves spontaneously without intervention. - No known triggers, though recent use of sunscreen and moisturizer may have contributed. - Previous dermatological consultation led to prescriptions, including Bactrim, which caused confusion, difficulty walking, and falls, leading to discontinuation after six weeks. - No fever or systemic symptoms reported during episodes of swelling. Physical Exam General: Cooperative, healthy appearing, comfortable, no acute distress and well developed Orientation: Patient oriented x3 Limitations: No limitations Head: Normal to inspection Ears: Hearing grossly normal bilaterally Nose: Normal External nose present Face and sinus: edema and erythema from chin to inferior bilateral eyes Eyes: Appearance normal, both eyes and all related structures Neck: Normal visual inspection and Yes full ROM Respiratory: Normal respiratory effort and able to speak in complete sentences. Skin: No rashes or lesions noted Neuro: Patient oriented x3 Extremities: Normal to inspection [facility] Medical History Anxiety disorder Contusion of left knee, initial encounter Rosacea Stress fracture of right foot Essential hypertension External hemorrhoids without complication Recurrent insomnia Postmenopause Menopause Osteopenia of multiple sites Dyslipidemia Ovarian cyst Migraine Esophagitis Acquired hypothyroidism Surgical History S/P dilatation of esophageal stricture History of salpingo-oophorectomy Family History Father Smoker Lung cancer Mother Multiple myeloma Social History Housing: House Alcohol intake: current Patient Tobacco Use Status: Never used Tobacco e-Cigarette/Vaping Use: Never Used Second Hand Smoke Exposure: No service: No Current occupational status: retired Cognitive needs: No Hearing needs: No Vision needs: Yes Review of Systems Const All systems reviewed & are unremarkable except as noted in HPI and below Physical Exam Vital Signs: Last Vital Signs Temp 98.1 F 04/24/25 10:56 Pulse 93 04/24/25 10:56 BP 138/72 04/24/25 10:56 Pulse Ox 97 04/24/25 10:56 Oxygen Delivery Method Room Air 04/24/25 10:56 BMI result Body Mass Index 25.0 Assessment & Plan Assessment & Plan (1) Contact dermatitis: Code(s): L25.9 - Unspecified contact dermatitis, unspecified cause Qualifiers: Contact dermatitis type: allergic Contact dermatitis trigger: unspecified trigger Qualified Code(s): L23.9 - Allergic contact dermatitis, unspecified cause Plan: Plan - Recommend trial of Benadryl at night and Pepcid during the day to manage swelling and redness. - Referral to an cable puller for further evaluation and allergy testing. - Prescribe an EpiPen for emergency use in case of severe allergic reaction affecting breathing. Patient was informed and verbally consented to the use of an ambient scribe for clinic note documentation during this visit. Orders: Referrals Allergy & Immunology Referral L25.9 - Unspecified contact dermatitis, unspecified cause Medications: New epinephrine for 2 doses 0.3 mg (0.3 mL) IM Q15M PRN 2 ea 0RF anaphylaxis Coding Level of Care Code Est Pt Level 4 (65022) Diagnoses Allergic contact dermatitis, unspecified trigger L23.9 Contact dermatitis type: allergic Contact dermatitis trigger: unspecified trigger
== END 2025-04-24 11:59 | disposition home or self-care (01) ==
PROVIDERS: PCP Internal Medicine; Visit Provider Physician Assistant
DX: L23.9 Allergic contact dermatitis, unspecified cause (principal)

== ENCOUNTER 2025-06-10 07:08 | Outpatient (REF) | payer MEDICARE, SELFPAY ==
[2025-06-10 10:14] LABS: MANUAL DIFF FLAG NO
[2025-06-10 10:21] LABS: Hematocrit 33.5 % (37.0-47.0); Hemoglobin 11.2 g/dl (12.0-16.0); Imm Gran Abs Auto 0.02 X10*3/uL (0.00-0.03); Imm Gran Pct Auto 0.3 % (0.0-0.4); Lymphocytes Absolute Auto 1.2 X10*3/uL (1.2-4.9); Mean Corpuscular HGB Conc 33.4 g/dl (31.0-35.0); Mean Corpuscular Hemoglobin 29.5 pg (27.0-33.0); Mean Corpuscular Volume 88.2 fL (80.0-98.0); NRBC Abs Auto 0.000 X10*3/uL (0.0-0.012); NRBC Pct Auto 0.0 /100WBC (0.0-0.2); Platelet Count 227 X10*3/uL (160-400); Red Blood Count 3.80 X10*6/uL (4.20-5.50); White Blood Count 6.3 X10*3/uL (4.8-10.8)
[2025-06-10 10:58] LABS: Alanine Aminotransferase 9 U/L (0-31); Anion Gap 10 (12-20); Aspartate Amino Transferase 26 U/L (5-31); Blood Urea Nitrogen 18 mg/dL (9-16); Calcium 9.4 mg/dL (8.4-10.2); Carbon Dioxide 29 mmol/L (22-29); Chloride 108 mmol/L (96-108); Cholesterol 144 mg/dL (<200); Estimated Glomerular Filt Rate 53; HDL Cholesterol 53 mg/dL (>40); Potassium 4.8 mmol/L (3.3-5.1); Sodium 142 mmol/L (135-145); Triglycerides 79 mg/dL (<150)
[2025-06-10 11:18] LABS: Free T4 (Free Thyroxine) 1.15 ng/dL (0.71-1.85); Thyroid Stimulating Hormone 0.77 uIU/mL (0.32-4.0)
== END 2025-06-10 07:09 | disposition home or self-care (01) ==
LOC: HO.HMGCLDS 07:08
PROVIDERS: PCP Internal Medicine; Visit Provider Internal Medicine
DX: I10 Essential (primary) hypertension (principal); F41.1 Generalized anxiety disorder; E03.9 Hypothyroidism, unspecified; M85.89 Other specified disorders of bone density and structure, multiple sites; E78.5 Hyperlipidemia, unspecified; Z78.0 Asymptomatic menopausal state
CPT/HCPCS: 36415; 80048; 80061; 82306; 84439; 84443; 84450; 84460; 85025

== ENCOUNTER 2025-06-12 15:19 | Outpatient (REF) | payer MEDICARE, SELFPAY ==
--- OUTSIDE RECORDS SUMMARY | 2025-06-12 15:26 | XMS_ITS | Patient Health Record ---
Author [facility] Address [address] [facility] [place] [address] Care Team Providers Care Steward/Stewardess Railroad Dining Car Name Role Phone Austen JEREZ, Clarice Cantor Primary Care Provider Un available Lorenakwaku Herlinda Unavailable [phone] Allergies Allergen (clinical drug ingredient) Drug/Non Drug Allergy documented on EMR Reaction Allergy Type Onset Date Status codeine Codeine vomiting Drug Allergy Active Reason For Referral No Information Medications Medication SIG (Take, Route, Frequency, Duration) Notes Start Date End Date Status Latanoprost Active Walking Boot/Pneumatic As directed Wear Daily; Duration: Until further notice 12/04/2023 Active vitamin butterbur Not-Taking Lisinopril 5 MG 1 tablet Orally Once a day Active Atorvastatin Calcium 10 MG 1 tablet Oral ly Once a day; Duration: 30 day(s) Active Levothyroxine Sodium 88 MCG 1 tablet in the morning on an empty stomach Orally Once a day; Duration: 30 day(s) Active ZyrTEC Allergy Activ e [...] Problem Status W/U Status Risk Notes Problem Plantar wart (43198118) Plantar wart (B07.0) Active confirmed Problem Acquired hallux valgus (74176665) Hallux valgus (acquired), right foot (M20.11) Active confirmed Problem Acquired hammer toe of right foot (7595595616229007 ) Hammer toe of right foot (M20.41) Active confirmed Problem Acquired hammer toe of left foot (2821637238305872 ) Hammer toe of left foot (M20.42) Active confirmed Problem Acquired hallux rigidus (2236198) Hallux rigidus of right foot (M20.21) Active confirmed Problem Localized, primary osteoarthritis of the ankle and/or foot (310061176) Osteoarthritis of right ankle and foot (M19.071) Active confirmed Problem Accessory bone of foot (1973214308) Accessory bone of foot (Q74.2) Active confirmed Plan Of Treatment [...] National Govt Svcs Inc [address] [place] [address] [id number] Dodie Watson Self - patient is the insured [employer] [address] [place] [address] [id number] Dodie Watson Self - patient is the insured Medical (General) History Medical History History ICD Code Glaucoma Reflux ( GERD) thyroid Chicken pox Surgical History Surgery Date(Month/Year) ovary removal surgery colonoscopy
--- OUTSIDE RECORDS SUMMARY | 2025-06-12 15:26 | XMS_ITS ---
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 She had patch testing with the [facility]. 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 The rash is burning, painful, and red. Pt presents today for patch test removal. Pt came in to office on MondayJune 10, she walked into [facility] suite and stated tape from patches was coming off. I looked at area and although edges were coming away, it was mostly in tact so I advised to wait for appt today to remove as to not disturb the actual patches. She states shehas been dealing with this happening on her face for some time and [facility] has advised her to just use cetaphil wash and Vaseline and it seems to be helping. Upon removal and review today I see nothing showing positive. We discussed aftercare for today and tomorrow and pt will return on Monday for possible delayed reactions. [facility] is DOD Allergies, Adverse Reactions, Alerts Substance RxNorm Reaction(s) Severity Status Start Da te codeine 2670 unspecified active Bactrim unspecified active amoxicillin unspecified active Medications Medication Generic Name RxNorm Strength Strength Unit Route Dose Dose Form Frequency Date Started Date Ended Status Indication Sig amlodipine amlodipi ne 5 mg Oral 1 table t qd active atorvastati n 231510 10 mg Oral 1 table t daily active levothyroxi ne 189145 75 mcg Oral 1 table t daily active lisinopril 652107 20 mg Oral 1 table t daily active omeprazole 670808 20 mg Oral 1 capsu le,de layed relea se (ente mike coate d) daily active Problems Problem Code Type Status Date of Diagnosis Date of Resolution Disorder of skin and/or subcutaneous tissue (disorder) 67040807(S NOMED) Diagnosis active 06/11/2025 Disorder of skin and/or subcutaneous tissue (disorder) 30898540(S NOMED) Diagnosis active 06/09/2025 Inflamed seborrheic keratosis (disorder) 037332979( SNOMED) Diagnosis active 04/29/2025 Actinic keratosis (disorder) 503221401( SNOMED) Diagnosis active 04/29/2025 Seborrheic keratosis (disorder) 399124469( SNOMED) Diagnosis active 04/29/2025 Rosacea (disorder) 419365462( SNOMED) Diagnosis active 04/29/2025 Rosacea (disorder) 676912008( SNOMED) Diagnosis active 01/08/2025 Scar conditions and fibrosis of skin (disorder) 360747119( SNOMED) Diagnosis active 01/08/2025 Seborrheic keratosis (disorder) 362769391( SNOMED) Diagnosis active 01/08/2025 Disorder of skin (disorder) 66655254(S NOMED) Diagnosis active 01/08/2025 Inflamed seborrheic keratosis (disorder) 403844092( SNOMED) Diagnosis active 01/08/2025 Rosacea (disorder) 481174932( SNOMED) Diagnosis active 12/18/2024 Localized infection of skin AND/OR subcutaneous tissue (disorder) 430021885( SNOMED) Diagnosis active 12/09/2024 Localized infection of skin AND/OR subcutaneous tissue (disorder) 049784430( SNOMED) Diagnosis active 12/04/2024 Localized infection of skin AND/OR subcutaneous tissue (disorder) 361106241( SNOMED) Diagnosis active 11/20/2024 Localized infection of skin AND/OR subcutaneous tissue (disorder) 959771404( SNOMED) Diagnosis active 11/18/2024 Rosacea (disorder) 312359900( SNOMED) Diagnosis active 10/07/2024 Eczema (disorder) 51637008(S NOMED) Diagnosis active 10/07/2024 Rosacea (disorder) 330075050( SNOMED) Diagnosis active 09/30/2024 Eczema (disorder) 61196027(S NOMED) Diagnosis active 09/30/2024 Rosacea (disorder) 173965617( SNOMED) Diagnosis active 09/23/2024 Rosacea (disorder) 208629152( SNOMED) Diagnosis active 08/01/2024 Patient encounter status (finding) 744477116( SNOMED) Diagnosis active 02/14/2024 Scar conditions and fibrosis of skin (disorder) ( SNOMED) Diagnosis active 01/29/2024 Disorder of pigmentation (disorder) 359361395( SNOMED) Diagnosis active 01/29/2024 Seborrheic keratosis (disorder) 079098421( SNOMED) Diagnosis active 01/29/2024 History of malignant neoplasm of skin (situation) 373852760( SNOMED) Diagnosis active 06/21/2023 Actinic keratosis (disorder) ( SNOMED) Diagnosis active 06/21/2023 Disorder of pigmentation (disorder) 153299362( SNOMED) Diagnosis active 06/21/2023 Seborrheic keratosis (disorder) 114295870( SNOMED) Diagnosis active 06/21/2023 Scar conditions and fibrosis of skin (disorder) ( SNOMED) Diagnosis active 06/21/2023 History of malignant neoplasm of skin (situation) 617983866( SNOMED) Diagnosis active 12/09/2022 Disorder of pigmentation (disorder) 254570557( SNOMED) Diagnosis active 12/09/2022 Seborrheic keratosis (disorder) 112447600( SNOMED) Diagnosis active 12/09/2022 Scar conditions and fibrosis of skin (disorder) ( SNOMED) Diagnosis active 12/09/2022 History of malignant neoplasm of skin (situation) 963774228( SNOMED) Diagnosis active 11/16/2021 Seborrheic keratosis (disorder) 021720498( SNOMED) Diagnosis active 11/16/2021 Disorder of pigmentation (disorder) 118421719( SNOMED) Diagnosis active 11/16/2021 Scar conditions and fibrosis of skin (disorder) ( SNOMED) Diagnosis active 11/16/2021 History of malignant neoplasm of skin (situation) 899695031( SNOMED) Diagnosis active 09/02/2021 Actinic keratosis (disorder) ( SNOMED) Diagnosis active 09/02/2021 Inflamed seborrheic keratosis (disorder) 979654312( SNOMED) Diagnosis active 09/02/2021 Seborrheic keratosis (disorder) 174637448( SNOMED) Diagnosis active 09/02/2021 History of malignant neoplasm of skin (situation) 846420518( SNOMED) Diagnosis active 04/27/2021 Actinic keratosis (disorder) ( SNOMED) Diagnosis active 04/27/2021 Disorder of pigmentation (disorder) 899803007( SNOMED) Diagnosis active 04/27/2021 Melanocytic nevus of trunk (disorder) 221414263( SNOMED) Diagnosis active 04/27/2021 Seborrheic keratosis (disorder) 402682106( SNOMED) Diagnosis active 04/27/2021 Personal history of other malignant neoplasm of skin Z85.828(IC D-10) Diagnosis active 08/03/2020 Inflamed seborrheic keratosis L82.0(ICD- 10) Diagnosis active 08/03/2020 Melanocytic nevi of trunk D22.5(ICD- 10) Diagnosis active 08/03/2020 Other seborrheic keratosis L82.1(ICD- 10) Diagnosis active 08/03/2020 Other melanin hyperpigmentation L81.4(ICD- 10) Diagnosis active 08/03/2020 Contusion of left great toe without damage to nail, initial encounter S90.112A(I CD-10) Diagnosis active 08/03/2020 Contusion of right great toe without damage to nail, initial encounter S90.111A(I CD-10) Diagnosis active 08/03/2020 Inflamed seborrheic keratosis (disorder) 157053973( SNOMED) Diagnosis active 06/11/2019 Needs influenza immunization (finding) 564104459( SNOMED) Diagnosis active 04/26/2018 Inflamed seborrheic keratosis (disorder) 647805580( SNOMED) Diagnosis active 04/26/2018 Other specified health status Z78.9(ICD- 10) Diagnosis active 04/27/2017 History of malignant neoplasm of skin (situation) 544204136( SNOMED) Diagnosis active 04/27/2017 Senile hyperkeratosis (disorder) 592627341( SNOMED) Diagnosis active 04/28/2016 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) 054025555( SNOMED) Diagnosis active 01/07/2016 Neoplasm of uncertain behavior of skin (disorder) 64606061(S NOMED) Diagnosis active 12/15/2015 Neoplasm of uncertain behavior of skin (disorder) 46375266(S NOMED) Diagnosis active 09/23/2014 Actinic keratosis (disorder) ( SNOMED) Diagnosis active 04/15/2014 Actinic keratosis (disorder) ( SNOMED) Problem active Squamous cell carcinoma (disorder) 481252143( SNOMED) Problem active Increased blood pressure (finding) 92173583(S NOMED) Problem active Gastroesophageal reflux disease (disorder) 097591029( SNOMED) Problem active Hypercholesterolemia (disorder) 43357710(S NOMED) Problem active Hypothyroidism (disorder) 32691295(S NOMED) Problem active Rosacea (disorder) 355726237( SNOMED) Problem active Results No data Encounters Service provided at [facility], [address] [place] [address], [address], [place], [place] [id number]. Office phonenumber is [phone]. Office fax number is [phone]. Encounter Diagnosis Location Date / Time Type Dermatosis NOS (L98.9) [facility] 06/11/2025 12:00:0 0 UTC 45661 Reason For Referral No data Procedures Procedure Date Documentation of current medications (pr ocedure) 06/11/2025 12:00 am UTC Documentation of current medications (pr ocedure) 06/09/2025 12:00 am UTC Patch test (procedure) 06/09/2025 12:00 am UTC Documentation of current medications (pr ocedure) 04/29/2025 12:00 am UTC Destruction of premalignant skin lesion (procedure) 04/29/2025 12:00 am UTC Cryotherapy of skin lesion with liquid n itrogen (procedure) 04/29/2025 12:00 am UTC Documentation of current medications (pr ocedure) 01/08/2025 12:00 am UTC Cryotherapy of skin lesion with liquid n itrogen (procedure) 01/08/2025 12:00 am UTC Injection of triamcinolone (procedure) 0 11/18/2024 12:00 am UTC Injection of triamcinolone (procedure) 1 11/30/2023 12:00 am UTC Cryotherapy of skin lesion with liquid n itrogen (procedure) 06/21/2023 12:00 am UTC Cryotherapy of skin lesion with liquid n itrogen (procedure) 09/02/2021 12:00 am [facility] Cryotherapy of skin lesion with liquid n itrogen (procedure) 04/27/2021 12:00 am [facility] Cryotherapy of skin lesion with liquid n itrogen (procedure) 08/03/2020 12:00 am [facility] Documentation of past medical history (p rocedure) Documentation of past medical history (p rocedure) Documentation of past medical history (p rocedure) Documentation of past medical history (p rocedure) Documentation of past medical history (p rocedure) Documentation of past medical history (p rocedure) Review Of Systems No Data Assessment 1.[facility] Patch Test Reading: What reading time point? - 48 hour; Number ofpatches Read - 80. Plan of Care Code Detail Instructions 375012 Bactrim DS 800 mg-160 mg tablet Take 1 PO BID 873512 Bactrim DS 800 mg-160 mg tablet Take 1 PO BID 3735057 doxycycline hyclate 100 mg table t Take 1 tablet BID with food for 2 weeks. Avoid dairy. Do not take right before bedtime. Avoid direct sunlight exposure. 311771 doxycycline hyclate 20 mg tablet Take 1 tablet PO BID 2877530 ivermectin 1 % topical cream Jessy ly once daily 477996 metronidazole 0.75 % topical cre am Apply QD-BID on affected areas for rosacea 9699452 doxycycline hyclate 100 mg capsu le 1 PO BID with food for 2 week's Do not take right before bedtime. Try to avoid direct sun exposure 656005 tretinoin 0.05 % topical cream A pply thin film QHS. If too irritating, apply every other night. Instructions No Data Social History Code Activity Start Date End Date 173530801 (SNOMED) Never smoker Sex female Sexual orientation Unspecified Gender identity Unspecified Vital Signs No data
== END 2025-06-12 15:20 | disposition home or self-care (01) ==
LOC: HO.MAMMO 15:19
PROVIDERS: PCP Internal Medicine; Visit Provider Internal Medicine
DX: Z12.31 Encounter for screening mammogram for malignant neoplasm of breast (principal)
CPT/HCPCS: 77063; 77067

== ENCOUNTER → 2025-06-12 15:30 | Outpatient (BNV) | payer MEDICARE, SELFPAY | PROVIDERS: PCP Internal Medicine; Visit Provider Internal Medicine | DX: Z12.31 Encounter for screening mammogram for malignant neoplasm of breast (principal) | CPT/HCPCS: 77063; 77067 ==

== ENCOUNTER 2025-06-17 09:10 | Outpatient (AMB) | payer MEDICARE, SELFPAY ==
[2025-06-17 09:12] VITALS: BP 108/60; PULSE 87; RESP 16; TEMP 37.1; O2SAT 97; BMI 25.4
--- NOTE | 2025-06-17 09:12 | A.OFFPC_ITS ---
Vital Signs 06/17/25 09:12 Height 5 ft 5.5 in Weight 155 lb BMI 25.4 BP 108/60 Blood Pressure Location Rt brachial Position Sitting Respiration 16 Pulse 87 Pulse Source Pulse Oximeter Temp 98.8 F Temp Source Oral Pulse Oximetry (%) 97 Oxygen Delivery Method Room Air Intake Visit Reasons: 6 months f/up Intake Note: Pt is here today for her 6mo. f/u Allergies lisinopril Allergy (Intermediate, Verified 06/17/25 09:37) Cough amoxicillin Adverse Reaction (Unknown, Verified 06/17/25 09:33) yeast infection codeine Adverse Reaction (Unknown, Verified 06/17/25 09:33) vomiting bactrim Adverse Reaction (Uncoded 06/17/25 09:33) Confusion Medication List - Last Reconciled 06/17/25 by Clarice Boyce MD amlodipine 5 mg PO QPM 3 months atorvastatin 10 mg PO MOWEFR 3 months brimonidine 0.2% 1 drp ophthalmic (eye) Q12H butterbur root extract 50 mg PO DAILY cetirizine (Zyrtec) 10 mg PO DAILY PRN cholecalciferol (vitamin D3) 25 mcg PO DAILY doxepin 6 mg PO BEDTIME PRN epinephrine 0.3 mg (0.3 mL) IM Q15M PRN latanoprost 0.005% drps ophthalmic (eye) levothyroxine 75 mcg PO QAM lisinopril 20 mg PO DAILY lorazepam 0.5 mg PO DAILY PRN omeprazole 20 mg PO DAILY Tobacco use date assessed: 06/17/25 Fall risk assessment: 1 Fall in past year Last assessed Fall Risk: 06/17/25 Dental Screening Dental Screen Date: 06/17/25 Did you have a dental visit in the last 12 months?: Yes Did you have a dental problem in the last 6 months where you did not have access to dental care?: No Was dental information given to patient?: Patient has dentist HPI 6 months f/up HPI Details - The patient is an 85-year-old female w ith history of hypertension , hypothyroidism, anxiety disorder, insomnia, osteopenia, and dyslipidemia, presenting today for follow-up visit. - Hypertension: The patient has been on lisinopril for an extended period, but recently started experiencing a persistent dry cough, which is a known side effect of the medication. The cough has been present for approximately five weeks and is described as dry and persistent, often leading to choking, especially at night. - The patient was recently started on am lodipine, which she initially suspected as the cause of her symptoms. - Anemia: The patient is slightly anemic , with hemoglobin levels dropping from 12.4 to 11.2 over eight months. She r states that she has not been consuming red meat, which may contribute to her anemia. - Urinary Incontinence: The patient repo rts frequent urges to urinate and occasional leakage, particularly when coughing or sneezing. - Allergies: The patient underwent patch testing, revealing allergies to several substances, including neomycin and Balsam of [place]. She reports using sunscreen that may have exacerbated her symptoms and has been advised to use zinc oxide- based products. [facility] Medical History (Updated 06/17/25 @ 10:06 by Clarice Boyce MD) Cough due to CONNOR inhibitor Anxiety disorder Rosacea Stress fracture of right foot Essential hypertension External hemorrhoids without complication Recurrent insomnia Postmenopause Menopause Osteopenia of multiple sites Dyslipidemia Ovarian cyst Migraine Esophagitis Acquired hypothyroidism Surgical History S/P dilatation of esophageal stricture History of salpingo-oophorectomy Family History Father Smoker Lung cancer Mother Multiple myeloma Social History Housing: House Alcohol intake: current Patient Tobacco Use Status: Never used Tobacco e-Cigarette/Vaping Use: Never Used Second Hand Smoke Exposure: No service: No Current occupational status: retired Cognitive needs: No Hearing needs: No Vision needs: Yes Questionnaire Thrive Questionnaire Date Thrive assessed: 02/27/25 I am a: Patient What is your living situation today?: I have a steady place to live Within the past 12 months, did the food you bought not last and you didn't have the money to get more?: Never true Within the past 12 months, did you worry whether your food would run out before you got money to buy more?: Never true Do you have trouble paying for medicines?: No Do you have trouble getting transportation to medical appointments?: No Do you have trouble paying your heating and electricity bill?: No Do you have trouble taking care of your child, family member or friend?: No Do you have trouble with day-to-day activities such as bathing, preparing meals, shopping, managing finances, etc.?: No Are you currently unemployed and looking for a job?: No Are you interested in more education?: No Please select the resources that you would like help with: None Currently or been in a relationship where the following occur: No concerns reported THRIVE Score: 0 FREDRICK-7 AMB Questionnaire FREDRICK-7 Date FREDRICK - 7 assessed: 01/08/24 Feeling nervous, anxious, or on edge: 0 = Not at all Source: Developed by Drs. Stan Long, Kika Will, Edward Rutherford and colleagues, with an educational cristian from [employer]. Review of Systems Const Reports no additional complaints Eyes Denies change in vision ENT Reports no additional complaints, Denies dizziness and Denies disequilibrium Card Denies chest pain, Denies chest pain with activity, Denies irregular heart rhythm, Denies palpitations and Denies dyspnea Resp Denies dyspnea GI Reports no additional complaints Reports no additional complaints Musc Reports stiffness Neuro Denies behavioral changes, Denies dizziness, Denies seizure-like activity and Denies disequilibrium Psych Reports no additional complaints and Denies behavioral changes Endo Denies palpitations Anthony/Lymph Denies easy bleeding and Denies easy bruising Aller/Immun Reports no additional complaints Physical exam (Primary Care) Vital Signs: Last Vital Signs Temp 98.8 F 06/17/25 09:12 Pulse 87 06/17/25 09:12 Resp 16 06/17/25 09:12 BP 108/60 06/17/25 09:12 Pulse Ox 97 06/17/25 09:12 Oxygen Delivery Method Room Air 06/17/25 09:12 BMI result Body Mass Index 25.4 Tobacco/Smoking Status: Tobacco use Status Tobacco use date assessed 06/17/25 06/17/25 09:20 Patient Tobacco Use Status Never used Tobacco 06/17/25 09:14 e-Cigarette/Vaping Use Never Used 06/17/25 09:14 Thrive Assessment: Date of Thrive Assessment Date Thrive assessed 02/27/25 06/17/25 09:14 Currently or been in a relationship where the following occur: No concerns reported Const Other: Alert oriented x3, no acute cardiorespiratory distress, ambulatory with normal gait Orientation/consciousness: patient oriented x3 HENMT Mouth: Normal oral and palatal mucosa present, oropharynx normal and moist mucous membranes Eyes Other: sees Dr Smith General: appearance normal, both eyes and all related structures Neck Other: Supple, no lymphadenopathy, thyroid gland nonpalpable Resp Other: Clear to auscultation bilaterally Cardio Other: S1-S2 present, regular rate and rhythm GI Inspection: Yes normal to inspection Palpation (GI): Soft to palpation, nontender, no guarding and no masses Auscultation: normal bowel sounds General: Yes no CVA tenderness Back/Spine/Pelvis Back: no CVA tenderness and No back tenderness Neuro General: patient oriented x3, gait normal and moves all extremities Extrem General: Yes full ROM, Yes no joint enlargement, Yes no clubbing, cyanosis or edema and Yes normal gait Results Reviewed Results Reviewed: Name: Dodie Watson Age/Sex: 85/F : 1940 Unit#: [id number] Attend Dr: Clarice Boyce MD Re06/10/25 Status: DEP REF Location: [facility] Disch: SPEC : [id number] SHELLI: 06/10/25 STATUS: COMP REQ : [id number] RECD: 06/10/25-[address]: Clarice Boyce MD COMP: 06/10/25 ENTERED: 06/10/[address]: ORDERED: CBC Auto Diff Test Result Flag Reference WBC 6.3 4.8-10.8 X10*3/uL RBC 3.80 L 4.20-5.50 X10*6/uL HGB 11.2 L 12.0-16.0 g/dl HCT 33.5 L 37.0-47.0 % MCV 88.2 80.0-98.0 fL MCH 29.5 27.0-33.0 pg MCHC 33.4 31.0-35.0 g/dl RDW 13.5 11.0-16.0 % PLT 227 160-400 X10*3/uL MPV 10.8 9.4-12.3 fL Neut Pct Auto 60.3 45-73 % ImGran Pct Auto 0.3 0.0-0.4 % Lymp Pct Auto 19.8 L 20-40 % [place] Pct Auto 9.1 2-11 % Eos Pct Auto 9.1 H 0-4 % Baso Pct Auto 1.4 0-2 % NRBC Pct Auto 0.0 0.0-0.2 /100WBC ANC Neut Abs # 3.8 2.0-8.3 x10*3/uL ImGran Abs Auto 0.02 0.00-0.03 X10*3/uL Lymph Abs Auto 1.2 1.2-4.9 X10*3/uL [place] Abs Auto 0.6 0.1-1.2 X10*3/uL Eos Abs Auto 0.6 H 0.0-0.4 X10*3/uL Baso Abs Auto 0.1 0.0-0.2 X10*3/uL NRBC Abs Auto 0.000 0.0-0.012 X10*3/uL Name: Dodie Watson Age/Sex: 85/F : 1940 Unit#: [id number] Attend Dr: Clarice Boyce MD Re06/10/25 Status: [facility] REF Location: [facility] Disch: SPEC : [id number] SHELLI: 06/10/25 STATUS: COMP REQ : [id number] RECD: 06/10/25-[address]: Clarice Boyce MD COMP: 06/10/25-1118 ENTERED: 06/10/25-[address] [facility] [address]: ORDERED: Met Prof Fast, AST, ALT, Lipid Panel, Vitamin D 25-OH, Free T4, TSH Test Result Flag Reference Sodium 142 135-145 mmol/L Potassium 4.8 3.3-5.1 mmol/L CL 108 96-108 mmol/L CO2 29 22-29 mmol/L Gap 10 L 12-20 BUN 18 H 9-16 mg/dL Creat 1.00 0.5-1.4 mg/dL eGFR 53 Chronic Kidney Disease: Estimated GFR < 60 mL/min/1.73m2 Severe Kidney Disease: Estimated GFR < 15 mL/min/1.73m2 FBS 93 60-99 mg/dL CA 9.4 8.4-10.2 mg/dL AST (GOT) 26 5-31 U/L ALT (GPT) 9 0-31 U/L Triglyceride 79 <150 mg/dL Desirable Triglyceride: less than 150 mg/dL Borderline High Triglyceride 150-199 mg/dL High Triglyceride: 200-499 mg/dL Very High Triglyceride: greater than or equal to 5OO mg/dL Cholesterol 144 <200 mg/dL Desirable Cholesterol: less than 200 mg/dL Borderline High Cholesterol: 200-239 mg/dL High Cholesterol: greater than 239 mg/dL LDL Calculated 76 <100 mg/dL Desirable LDL: less than 100 mg/dL Near Optimal/Above Optimal LDL: 110-129 mg/dL Borderline High LDL: 130-159 mg/dL High LDL: 160-189 mg/dL Very High LDL: greater than or equal to 190 mg/dL HDL 53 >40 mg/dL Desirable HDL: greater than 40 mg/dL Note: This HDL assay may give artificially low results in patients with liver disease. Vitamin D 25-OH 78.5 >30 ng/mL Health Based Reference Values* < 20 ng/mL Deficient 20-30 ng/mL Insufficient > 30 ng/mL Sufficient *Jeanie WELLS. N Engl J Med. 2007;357:266-280 There is no well-established upper level of normal vitamin D levels. Some laboratories use 50 ng/mL as an upper limit of normal. However, toxicity is patient-dependent and may occur at any level. Careful correlation with the patient's presentation is necessary and, if there is concern for vitamin D toxicity, treatment should be considered irrespective of the serum level. Care must be taken in interpreting Vitamin D results from different laboratories and methodologies. Published data demonstrated that results from patients undergoing hemodialysis may show a negative bias when tested with various automated 25-OH vitamin D assays when compared to LC-MS/MS. When testing samples from patients whose predominant form of Vitamin D is Vitamin D2, such as patients receiving Vitamin D2 supplementation, results that are subtherapeutic should be confirmed with another method such as LC-MS/MS. Free T4 1.15 0.71-1.85 ng/dL TSH 3rd Gen. 0.77 0.32-4.0 uIU/mL TSH 3rd Generation ([facility]) Coding Level of Care Code Est Pt Level 4 (31855) Diagnoses Cough due to CONNOR inhibitor R05.8; T46.4X5A Generalized anxiety disorder F41.1 Anxiety disorder type: generalized anxiety disorder Essential hypertension I10 Dyslipidemia E78.5 Acquired hypothyroidism E03.9 Recurrent insomnia G47.00 Assessment & Plan Assessment & Plan (1) Cough due to CONNOR inhibitor: Code(s): R05.8 - Other specified cough; T46.4X5A - Adverse effect of sdrvfmuqamx-dedlcjbaes-rkqsfg inhibitors, initial encounter Category: Medical (2) Anxiety disorder: Code(s): F41.9 - Anxiety disorder, unspecified Category: Medical Qualifiers: Anxiety disorder type: generalized anxiety disorder Qualified Code(s): F41.1 - Generalized anxiety disorder (3) Essential hypertension: Code(s): I10 - Essential (primary) hypertension Category: Medical (4) Dyslipidemia: Code(s): E78.5 - Hyperlipidemia, unspecified Category: Medical (5) Acquired hypothyroidism: Code(s): E03.9 - Hypothyroidism, unspecified Category: Medical (6) Recurrent insomnia: Code(s): G47.00 - Insomnia, unspecified Category: Medical Plan The patient's persistent cough is likely due to lisinopril, and the plan is to discontinue lisinopril and initiate losartan at a dose of 50 mg. Once a day. will have her blood pressure checked in two weeks to ensure the effectiveness of losartan. - For anemia, dietary modifications were discussed, emphasizing the inclusion of iron-rich foods such as red meat and green leafy vegetables. The patient is advised to monitor her diet and consider these changes to improve her hemoglobin levels. -Regarding urinary incontinence, the patient was informed about the potential role of pelvic floor weakness due to decreased estrogen levels. No immediate intervention was planned, but the patient was educated on the condition. For allergies, the patient was advised to avoid products containing neomycin and Balsam of [place]. She was recommended to use zinc oxide-based sunscreens to prevent allergic reactions. -repeat fasting labs ordered for November 2025 to be done at least a week prior to her next appointment Patient was informed and verbally consented to the use of an ambient scribe for clinic note documentation during this visit. Orders: Orders IRON PROFILE 12/10/25 E03.9 - Hypothyroidism, unspecified, E78.5 - Hyperlipidemia, unspecified, I10 - Essential (primary) hypertension, M85.89 - Other specified disorders of bone density and structure, multiple sites, Z78.0 - Asymptomatic menopausal state Aspartate Amino Transferase 12/10/25 E03.9 - Hypothyroidism, unspecified, E78.5 - Hyperlipidemia, unspecified, I10 - Essential (primary) hypertension, M85.89 - Other specified disorders of bone density and structure, multiple sites, Z78.0 - Asymptomatic menopausal state Free T4 (Free Thyroxine) 12/10/25 E03.9 - Hypothyroidism, unspecified, E78.5 - Hyperlipidemia, unspecified, I10 - Essential (primary) hypertension, M85.89 - Other specified disorders of bone density and structure, multiple sites, Z78.0 - Asymptomatic menopausal state Basic Metabolic Panel Fasting 12/10/25 E03.9 - Hypothyroidism, unspecified, E78.5 - Hyperlipidemia, unspecified, I10 - Essential (primary) hypertension, M85.89 - Other specified disorders of bone density and structure, multiple sites, Z78.0 - Asymptomatic menopausal state Complete Blood Count Auto Diff 12/10/25 E03.9 - Hypothyroidism, unspecified, E78.5 - Hyperlipidemia, unspecified, I10 - Essential (primary) hypertension, M85.89 - Other specified disorders of bone density and structure, multiple sites, Z78.0 - Asymptomatic menopausal state Alanine Aminotransferase 12/10/25 E03.9 - Hypothyroidism, unspecified, E78.5 - Hyperlipidemia, unspecified, I10 - Essential (primary) hypertension, M85.89 - Other specified disorders of bone density and structure, multiple sites, Z78.0 - Asymptomatic menopausal state Vitamin D 25-OH Total 12/10/25 E03.9 - Hypothyroidism, unspecified, E78.5 - Hyperlipidemia, unspecified, I10 - Essential (primary) hypertension, M85.89 - Other specified disorders of bone density and structure, multiple sites, Z78.0 - Asymptomatic menopausal state Thyroid Stimulating Hormone 12/10/25 E03.9 - Hypothyroidism, unspecified, E78.5 - Hyperlipidemia, unspecified, I10 - Essential (primary) hypertension, M85.89 - Other specified disorders of bone density and structure, multiple sites, Z78.0 - Asymptomatic menopausal state Lipid Panel 12/10/25 E03.9 - Hypothyroidism, unspecified, E78.5 - Hyperlipidemia, unspecified, I10 - Essential (primary) hypertension, M85.89 - Other specified disorders of bone density and structure, multiple sites, Z78.0 - Asymptomatic menopausal state Medications: New losartan 50 mg PO DAILY 30 tabs 2RF Discontinued lisinopril Discontinued Reason: Doctor's Order 20 mg PO DAILY 90 tabs 1RF
--- OUTSIDE RECORDS SUMMARY | 2025-06-17 09:29 | XMS_ITS | Patient Health Record ---
[facility] Address [address] [place] [address] Care Team Providers Care Electronic Warfare Operator Name Role Phone Austen JEREZ, Clarice Cantor Primary Care Provider Un available Lorenakwaku Herlinda Unavailable [phone] Allergies Allergen (clinical drug ingredient) Drug/Non Drug [...] W/U Status Risk Notes Problem Plantar wart (99697670) Plantar wart (B07.0) Active confirmed Problem Acquired hallux valgus (26866224) Hallux valgus (acquired), right foot (M20.11) Active confirmed Problem Acquired hammer toe of right foot ([id number] ) Hammer toe of right foot (M20.41) Active confirmed Problem Acquired hammer toe of left foot ([id number] ) Hammer toe of left foot (M20.42) Active confirmed Problem Acquired hallux rigidus (0112243) Hallux rigidus of right foot (M20.21) Active confirmed Problem Localized, primary osteoarthritis of the ankle and/or foot (997284319) Osteoarthritis of right ankle and foot (M19.071) Active confirmed Problem Accessory bone of foot (5789720274) Accessory bone of foot (Q74.2) Active confirmed [...] Inc [address] [facility] [place] [address] [id number] Dodie Watson Self - patient is the insured [employer] [address] [place] [address] [phone] [id number] Dodie Watson Self - patient is the insured Medical (General) History Medical History History ICD Code Glaucoma Reflux ( GERD) thyroid Chicken pox Surgical History Surgery Date(Month/Year) ovary removal surgery colonoscopy
== END 2025-06-17 10:09 | disposition home or self-care (01) ==
LOC: HO.HMCC 09:10
PROVIDERS: PCP Internal Medicine; Visit Provider Internal Medicine
DX: R05.8 Other specified cough (principal); T46.4X5A Adverse effect of angiotensin-converting-enzyme inhibitors, initial encounter; F41.1 Generalized anxiety disorder; I10 Essential (primary) hypertension; E78.5 Hyperlipidemia, unspecified; E03.9 Hypothyroidism, unspecified; G47.00 Insomnia, unspecified

== ENCOUNTER → 2025-06-17 09:10 | Outpatient (BNVA) | payer MEDICARE, SELFPAY | PROVIDERS: PCP Internal Medicine; Visit Provider Internal Medicine | DX: R05.8 Other specified cough (principal); T46.4X5D Adverse effect of angiotensin-converting-enzyme inhibitors, subsequent encounter; F41.1 Generalized anxiety disorder; E78.5 Hyperlipidemia, unspecified; I10 Essential (primary) hypertension; G47.00 Insomnia, unspecified; E03.9 Hypothyroidism, unspecified | CPT/HCPCS: 99212 ==

== ENCOUNTER → 2025-07-10 08:55 | Outpatient (BNVA) | payer MEDICARE, SELFPAY | PROVIDERS: PCP Internal Medicine | DX: Z13.89 Encounter for screening for other disorder (principal) | CPT/HCPCS: 99211 ==

== ENCOUNTER 2025-08-20 12:17 | Outpatient (REF) | payer MEDICARE, SELFPAY ==
--- NOTE | ~2025-08-20 | XR_ITS ---
EXAMINATION: XR WRIST 3 OR MORE VIEWS RIGHT HISTORY: M25.431 - Effusion, right wrist COMPARISON: There are no prior studies available for comparison. FINDINGS: Four views of the right wrist including a scaphoid view are submitted. The bones are osteopenic. There is no fracture or dislocation. There is moderate osteoarthritis of the 1st carpometacarpal joint. 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 There is diffuse soft tissue swelling. XR/XR wrist RT min 3V IMPRESSION: Soft tissue swelling. Moderate osteoarthritis of the 1st carpometacarpal joint. Electronically signed by: Stan Reeder MD 08/20/2025 01:21 PM EDT
== END 2025-08-20 12:18 | disposition home or self-care (01) ==
LOC: HO.HMGCX 12:17
PROVIDERS: PCP Internal Medicine; Visit Provider Physician Assistant Medical
DX: M25.431 Effusion, right wrist (principal); R30.0 Dysuria
CPT/HCPCS: 73110; 99212

== ENCOUNTER 2025-08-20 12:17 | Outpatient (AMB) | payer MEDICARE, SELFPAY ==
[2025-08-20 12:19] VITALS: BP 138/74; PULSE 95; TEMP 36.8; O2SAT 96; BMI 24.6
--- NOTE | 2025-08-20 12:19 | AM.OFFWIN_ITS ---
Intake Vital Signs 08/20/25 12:19 Height 5 ft 5.5 in Weight 150 lb BMI 24.6 BP 138/74 Blood Pressure Location Lt brachial Position Sitting Pulse 95 Pulse Source Pulse Oximeter Temp 98.2 F Temp Source Oral Pulse Oximetry (%) 96 Oxygen Delivery Method Room Air Intake Visit Reasons: EP Wrist swelling Intake Note: pt presents with right wrist swelling for a couple days, now with pain and numbness to fingertips - denies injury. UTI positive at home test today. Patient Tobacco Use Status: Never used Tobacco Allergies lisinopril Allergy (Intermediate, Verified 08/20/25 12:24) Cough balsam [place] Allergy (Verified 08/20/25 12:24) Unknown cobalt Allergy (Verified 08/20/25 12:24) Unknown neomycin Allergy (Verified 08/20/25 12:24) Unknown propyl gallate Allergy (Verified 08/20/25 12:24) Unknown amoxicillin Adverse Reaction (Unknown, Verified 08/20/25 12:24) yeast infection codeine Adverse Reaction (Unknown, Verified 08/20/25 12:24) vomiting MDBGN Methyldibromo glutaronitrile Allergy (Uncoded 07/12/25 13:15) Unknown bactrim Adverse Reaction (Uncoded 06/17/25 09:33) Confusion Do you need a note to return to daycare/school/sports/work: No HPI HPI Comments History of Present Illness Details History of Present Illness - The patient is an 85-year-old female p resenting with her son for a swollen right wrist. - She does not have any memory of trauma or falls. - She states that she noticed that the w rist was swollen a few days ago with no pain. - She states that she has no history of gout. - She is right hand dominant. - Swelling in the wrist began yesterday, with pain on movement and numbness in the fingertips, but no history of trauma. - Cognitive decline has been noted over the past four months, with increased forgetfulness and confusion over the past 6 weeks. - Her son bought a UA at [facility] to rule out a UTI. - A home urine test showed leukocytes, t alice the patient reports no typical symptoms. - She denies dysuria, hematuria, back pa in, abd pain, urinary frequency or urgency. - She denies fever or chills. Physical Exam General: Cooperative, healthy appearing, comfortable, no acute distress and well developed Orientation: Patient oriented x3, but has marked cognitive problems and forgetfulness Limitations: No limitations Respiratory: Normal respiratory effort and able to speak in complete sentences. Clear to auscultation bilaterally. No w/r/r noted Cardiovascular: Regular rate and rhythm. Normal S1 and S2. No m/r/g noted. GI: Normal to inspection. Soft to palpation and nontender. Negative CVA tenderness noted. Skin: No rashes or lesions noted. Neuro: Patient oriented x3. Sensation is intact. Extremities: Right wrist swollen. No deformity noted. Small lump noted on the volar aspect of the wrist with mild bruising noted. No erythema noted. FROM of the right wrist and digits on the right hand. No TTP of the medial or lateral wrist. Hand personal care assistant is intact. Negative Tinels and Phalens, Finklesteins test. Patient was informed and verbally consented to the use of an ambient scribe for clinic note documentation during this visit. [facility] Medical History (Updated 06/17/25 @ 10:06 by Clarice Boyce MD) Cough due to CONNOR inhibitor Anxiety disorder Rosacea Stress fracture of right foot Essential hypertension External hemorrhoids without complication Recurrent insomnia Postmenopause Menopause Osteopenia of multiple sites Dyslipidemia Ovarian cyst Migraine Esophagitis Acquired hypothyroidism Surgical History S/P dilatation of esophageal stricture History of salpingo-oophorectomy Family History Father Smoker Lung cancer Mother Multiple myeloma Social History Housing: House Alcohol intake: current Patient Tobacco Use Status: Never used Tobacco e-Cigarette/Vaping Use: Never Used Second Hand Smoke Exposure: No service: No Current occupational status: retired Cognitive needs: No Hearing needs: No Vision needs: Yes Review of Systems Const All systems reviewed & are unremarkable except as noted in HPI and below Physical Exam Vital Signs: Last Vital Signs Temp 98.2 F 08/20/25 12:19 Pulse 95 08/20/25 12:19 BP 138/74 08/20/25 12:19 Pulse Ox 96 08/20/25 12:19 Oxygen Delivery Method Room Air 08/20/25 12:19 BMI result Body Mass Index 24.6 Results Reviewed Results Reviewed: will review the xray in the office IMPRESSION: Soft tissue swelling. Moderate osteoarthritis of the 1st carpometacarpal joint. Assessment & Plan Assessment & Plan (1) Swelling of right wrist: Code(s): M25.431 - Effusion, right wrist Plan: Most likely arthritis vs ganglion cyst vs fracture plan - An x-ray will be obtained to rule out fracture or other structural abnormalities. - A splint will be considered to manage swelling and pain - tylenol or motrin as needed for pain - wear the splint as needed for pain - Observation and follow-up if symptoms persist or worsen. - can refer her to ortho if no better (2) Dysuria: Code(s): R30.0 - Dysuria Plan: will order a UA to r/o UTI plan- - UA in the office- pt was unable to give the urine sample in the office - will treat based on the home test done and it was positive - follow up with PCP next week - advised the ER if worseing confusion, fever, dysuria, hematuria, etc Orders: Orders XR wrist RT min 3V Today M25.431 - Effusion, right wrist AMB Urinalysis Automated Today R30.0 - Dysuria Medications: New cefuroxime axetil 500 mg PO Q12H 10 tabs 0RF fluconazole may repeat second dose 72 hrs after first dose if symptoms persist 150 mg PO Q3D 2 tabs 0RF Coding Level of Care Code Est Pt Level 4 (73337) Diagnoses Swelling of right wrist M25.431 Dysuria R30.0
== END 2025-08-20 13:54 | disposition home or self-care (01) ==
PROVIDERS: PCP Internal Medicine; Visit Provider Physician Assistant Medical
DX: M25.431 Effusion, right wrist (principal); R30.0 Dysuria

== ENCOUNTER → 2025-08-20 13:03 | Outpatient (BNV) | payer MEDICARE, SELFPAY | PROVIDERS: PCP Internal Medicine; Visit Provider Radiology Diagnostic Radiology | DX: M18.11 Unilateral primary osteoarthritis of first carpometacarpal joint, right hand (principal) | CPT/HCPCS: 73110 ==

== ENCOUNTER 2025-08-28 11:17 | Outpatient (AMB) | payer MEDICARE, SELFPAY ==
--- OUTSIDE RECORDS SUMMARY | 2024-03-05 08:30 | XMS_ITS ---
Author Organization [facility] Address [address] [place] [id number] Care Team Providers Care Jumpbasting Collar Baster Name Role Phone Austen JEREZ, Clarice Cantor Primary Care Provider Un available Herlinda Doll [phone] Encounters Encounter Location Date Provider Diagnosis [facility] [address] [place] [address] 03/05/2024 Herlinda Doll Plan Of Treatment No Information Progress Notes * Dodie WATSON ADOB: [birth year] (85 yo F)Acc No.[id number]:03/05/2024 Progress Note Patient: Dodie COURTNEY Provider: Rikki Doll DPM :1940 A ge:83 Y S ex:Female Date:03/05/2024 Address:[address] [place], [place] [id number] Pcp:Chio Lopes Subjective: * Chief Complaints: * * Medical History: Objective: * Vitals: Assessment: Plan: * Treatment: * Images: * The named appointment provid er may or may not be the originator of this progress note, and it is not deemed complete until electronically signed by the appointment provider. Sign off status: Pending * Provider: Rikki Doll DPM Date: 0 03/05/2024 Generated for Printi ng/Faxing/eTransmitting on: 1 02:30 PM EDT
[2025-08-28 11:24] VITALS: BP 156/80; PULSE 106; TEMP 36.8; O2SAT 95; BMI 24.7
--- NOTE | 2025-08-28 11:24 | MHC.PC.OV ---
Vital Signs 08/28/25 11:24 Height 5 ft 5.5 in Weight 151 lb BMI 24.7 BP 156/80 H Blood Pressure Location Rt brachial Position Sitting Pulse 106 H Pulse Source Pulse Oximeter Temp 98.2 F Temp Source Oral Pulse Oximetry (%) 95 Oxygen Delivery Method Room Air Intake Visit Reasons: cognitive concerns Fabrication Welder Required: No Allergies lisinopril Allergy (Intermediate, Verified 08/28/25 11:29) Cough balsam carolina Allergy (Verified 08/28/25 11:29) Unknown cobalt Allergy (Verified 08/28/25 11:29) Unknown neomycin Allergy (Verified 08/28/25 11:29) Unknown propyl gallate Allergy (Verified 08/28/25 11:29) Unknown amoxicillin Adverse Reaction (Unknown, Verified 08/28/25 11:29) yeast infection codeine Adverse Reaction (Unknown, Verified 08/28/25 11:29) vomiting MDBGN Methyldibromo glutaronitrile Allergy (Uncoded 08/28/25 11:29) Unknown bactrim Adverse Reaction (Uncoded 08/28/25 11:29) Confusion Medication List - Last Reconciled 08/28/25 by Clarice Boyce MD atorvastatin 10 mg PO MOWEFR 3 months brimonidine 0.2% 1 drp ophthalmic (eye) Q12H butterbur root extract 50 mg PO DAILY cetirizine (Zyrtec) 10 mg PO DAILY PRN cholecalciferol (vitamin D3) 25 mcg PO DAILY doxepin 6 mg PO BEDTIME PRN epinephrine 0.3 mg (0.3 mL) IM Q15M PRN latanoprost 0.005% drps ophthalmic (eye) levothyroxine 75 mcg PO QAM lorazepam 0.5 mg PO DAILY PRN losartan 50 mg PO DAILY omeprazole 20 mg PO DAILY Tobacco use date assessed: 08/28/25 Fall risk assessment: No Falls in past year Last assessed Fall Risk: 08/28/25 Dental Screening Dental Screen Date: 08/28/25 Did you have a dental visit in the last 12 months?: Yes Did you have a dental problem in the last 6 months where you did not have access to dental care?: No Was dental information given to patient?: Patient has dentist HPI cognitive concerns HPI Details The patient is an 85-year-old female here today accompanied by son, complaining of having memory impairment and follow-up on her hypertension. The patient reports experiencing memory issues, including forgetting names and repetitive questioning, which have been ongoing for an unspecified duration. She has difficulty retaining short-term information, as evidenced by needing repeated reminders for medication instructions. Despite these issues, she retains long-term memories and has no family history of Alzheimer's disease. The patient experienced a blackout episode approximately six weeks ago while sitting, lasting about five minutes, during which she was unresponsive, but did not fall or lose balance. This incident led to an emergency room visit where a possible seizure was considered, but no definitive diagnosis was made. The patient has a history of hypertension, with a current blood pressure reading of 156/80 mmHg, which is higher than usual for her. She attributes the elevated reading to rushing before the appointment. The patient reports swelling and numbness in her right hand, with swelling right wrist, which prompted visit to the walk-in clinic a week ago. x-ray of right wrist was done showed mild soft tissue swelling and presence of carpometacarpal arthritis, advised to take Tylenol and follow-up with orthopedics. Patient however complaining of swelling has been in right right middle finger . She is also received treatment for an incidental findings urinary tract infection, but had no urinary symptoms at that time. 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 Anxiety disorder Rosacea Stress fracture of right foot Essential hypertension External hemorrhoids without complication Recurrent insomnia Postmenopause Menopause Osteopenia of multiple sites Dyslipidemia Ovarian cyst Migraine Esophagitis Acquired hypothyroidism Surgical History S/P dilatation of esophageal stricture History of salpingo-oophorectomy Family History Father Smoker Lung cancer Mother Multiple myeloma Social History Housing: House Alcohol intake: current Patient Tobacco Use Status: Never used Tobacco e-Cigarette/Vaping Use: Never Used Second Hand Smoke Exposure: No service: No Current occupational status: retired Cognitive needs: No Hearing needs: No Vision needs: Yes Questionnaire Thrive Questionnaire Date Thrive assessed: 02/27/25 I am a: Patient What is your living situation today?: I have a steady place to live Within the past 12 months, did the food you bought not last and you didn't have the money to get more?: Never true Within the past 12 months, did you worry whether your food would run out before you got money to buy more?: Never true Do you have trouble paying for medicines?: No Do you have trouble getting transportation to medical appointments?: No Do you have trouble paying your heating and electricity bill?: No Do you have trouble taking care of your child, family member or friend?: No Do you have trouble with day-to-day activities such as bathing, preparing meals, shopping, managing finances, etc.?: No Are you currently unemployed and looking for a job?: No Are you interested in more education?: No Please select the resources that you would like help with: None Currently or been in a relationship where the following occur: No concerns reported THRIVE Score: 0 FREDRICK-7 AMB Questionnaire FREDRICK-7 Date FREDRICK - 7 assessed: 01/08/24 Not being able to stop or control worryin = Not at all Worrying too much about different things: 0 = Not at all Trouble relaxin = Not at all Being so restless that it is hard to sit still: 0 = Not at all Becoming easily annoyed or irritable: 0 = Not at all Feeling afraid as if something awful might happen: 0 = Not at all Source: Developed by Drs. Stan Long, Kika Will, Edward Rutherford and colleagues, with an educational cristian from [employer]. Review of Systems Const All systems reviewed & are unremarkable except as noted in HPI and below Physical exam (Primary Care) Vital Signs: Last Vital Signs Temp 98.2 F 08/28/25 11:24 Pulse 106 H 08/28/25 11:24 BP 156/80 H 08/28/25 11:24 Pulse Ox 95 08/28/25 11:24 Oxygen Delivery Method Room Air 08/28/25 11:24 BMI result Body Mass Index 24.7 Tobacco/Smoking Status: Tobacco use Status Tobacco use date assessed 08/28/25 08/28/25 11:28 Patient Tobacco Use Status Never used Tobacco 08/28/25 11:28 e-Cigarette/Vaping Use Never Used 08/28/25 11:28 Thrive Assessment: Date of Thrive Assessment Date Thrive assessed 02/27/25 08/28/25 11:28 Currently or been in a relationship where the following occur: No concerns reported Const Other: Alert oriented x3, no acute cardiorespiratory distress, ambulatory with normal gait HENMT Mouth: Normal oral and palatal mucosa present, oropharynx normal and moist mucous membranes Eyes Other: sees Dr Smith General: appearance normal, both eyes and all related structures Neck Other: Supple, no lymphadenopathy, thyroid gland nonpalpable Resp Other: Clear to auscultation bilaterally Cardio Other: S1-S2 present, regular rate and rhythm GI Palpation (GI): Soft to palpation, nontender, no guarding and no masses Auscultation: normal bowel sounds General: Yes no CVA tenderness Back/Spine/Pelvis Back: no CVA tenderness and No back tenderness Neuro General: gait normal and moves all extremities Extrem General: Yes full ROM, Yes no joint enlargement, Yes no clubbing, cyanosis or edema and Yes normal gait Psych Appearance: grossly normal and well kempt Mental Status: mental status grossly normal Speech and movement: Normal speech and movement present Affect: normal affect Orientation What is the (year) (season) (date) (day) (month)?: year, season, day and month Where are we (state) (county) (town or city) (hospital) (floor)?: state, county, town or city, hospital/clinic and floor Registration Name of 3 unrelated objects clearly and slowly, then ask patient to repeat all 3 of them. (1st repeat determines score. Make sure they can repeat all three): object 1, object 2 and object 3 Attention & Calculation (CHOOSE ONE) Spell WORLD backwards (DLROW): 5 letters Recall Ask patient to repeat the 3 items from question #3.: object 1 and object 2 Language Show patient a wristwatch & ask what it is. Repeat for pencil.: watch and pencil Ask the patient to repeat the phrase 'No ifs, ands, or buts' after you.: correct Ask the patient to 'take a piece of paper with their right hand' 'fold paper in half' 'place paper on floor': take paper in right hand, fold paper in half and place paper on floor Print the sentence 'CLOSE YOUR EYES' on a piece. If patient actually closes eyes then score.: followed written direction Give patient a blank piece of paper & ask to write a sentence. Score if it contains a noun & verb.: sentence contains subject and verb Ask patient to copy figure of intersecting pentagons exactly. Score if all 10 angles & 2 intersects are included.: all 10 angles present & 2 are intersected Score Score: 28 Coding Level of Care Code Est Pt Level 4 (09562) Complex EM visit Add On G2211 Diagnoses Dyslipidemia E78.5 Essential hypertension I10 Memory deficits R41.3 Numbness of finger R20.0 Swelling of joint of right hand M25.441 Acquired hypothyroidism E03.9 Anemia, unspecified type D64.9 Anemia type: unspecified type Assessment & Plan Assessment & Plan (1) Dyslipidemia: Code(s): E78.5 - Hyperlipidemia, unspecified Category: Medical Plan: Fasting lipid panel ordered today. Currently taking atorvastatin 10 mg taken 3 times a week (2) Essential hypertension: Code(s): I10 - Essential (primary) hypertension Category: Medical Plan: Patient's blood pressure elevated on today's visit, check blood pressure keep a record readings persistently above 130/90. Continue taking losartan 50 mg daily (3) Memory deficits: Code(s): R41.3 - Other amnesia Category: Medical Plan: Scored 28/30 on her MMSE, likely indicative of mild cognitive impairment. Ordered CBC ferritin, iron profile, thyroid stimulating hormone and free T4 can has a as ultrasound of carotids. Referral to neurology if symptoms worsens (4) Numbness of finger: Code(s): R20.0 - Anesthesia of skin Plan: Nerve conduction study, check for carpal tunnel syndrome (5) Swelling of joint of right hand: Code(s): M25.441 - Effusion, right hand Plan: Will check no conduction study (6) Acquired hypothyroidism: Code(s): E03.9 - Hypothyroidism, unspecified Category: Medical Plan: Ordered TSH and free T4 as well as a repeat ultrasound of thyroid gland. Currently on levothyroxine 75 mcg daily in a.m. (7) Anemia: Code(s): D64.9 - Anemia, unspecified Qualifiers: Anemia type: unspecified type Qualified Code(s): D64.9 - Anemia, unspecified Plan: History of anemia repeat another CBC, ferritin and iron profile Orders: Orders IRON PROFILE 08/28/25 I10 - Essential (primary) hypertension, E78.5 - Hyperlipidemia, unspecified, R41.3 - Other amnesia Ferritin 08/28/25 I10 - Essential (primary) hypertension, E78.5 - Hyperlipidemia, unspecified, R41.3 - Other amnesia Thyroid Stimulating Hormone 08/28/25 I10 - Essential (primary) hypertension, E78.5 - Hyperlipidemia, unspecified, R41.3 - Other amnesia NE nerve conduction velocity 08/28/25 R20.0 - Anesthesia of skin, M25.441 - Effusion, right hand Complete Blood Count Auto Diff 08/28/25 I10 - Essential (primary) hypertension, E78.5 - Hyperlipidemia, unspecified, R41.3 - Other amnesia Free T4 (Free Thyroxine) 08/28/25 I10 - Essential (primary) hypertension, E78.5 - Hyperlipidemia, unspecified, R41.3 - Other amnesia US carotid duplex BI 08/28/25 I10 - Essential (primary) hypertension, E78.5 - Hyperlipidemia, unspecified, R41.3 - Other amnesia
--- OUTSIDE RECORDS SUMMARY | 2025-08-28 14:30 | XMS_ITS | Patient Health Record ---
[facility] Address [address] [place] [address] Care Team Providers Care Blurb Writer Name Role Phone Austen JEREZ, Clarice Cantor Primary Care Provider Un available Lorenakwaku Herlinda Unavailable [phone] Allergies Allergen (clinical drug ingredient) Drug/Non Drug [...] W/U Status Risk Notes Problem Plantar wart (90272138) Plantar wart (B07.0) Active confirmed Problem Acquired hallux valgus (85131461) Hallux valgus (acquired), right foot (M20.11) Active confirmed Problem Acquired hammer toe of right foot (3558500639167424 ) Hammer toe of right foot (M20.41) Active confirmed Problem Acquired hammer toe of left foot (0784883130687610 ) Hammer toe of left foot (M20.42) Active confirmed Problem Acquired hallux rigidus (6369676) Hallux rigidus of right foot (M20.21) Active confirmed Problem Localized, primary osteoarthritis of the ankle and/or foot (127244225) Osteoarthritis of right ankle and foot (M19.071) Active confirmed Problem Accessory bone of foot (9322860817) Accessory bone of foot (Q74.2) Active confirmed [...] [employer] [address] [place] [address] [id number] Dodie Watson Self - patient is the insured [employer] [address] [place] [address] [phone] [id number] Dodie Watson Self - patient is the insured Medical (General) History Medical History History ICD Code Glaucoma Reflux ( GERD) thyroid Chicken pox Surgical History Surgery Date(Month/Year) ovary removal surgery colonoscopy
== END 2025-08-28 12:38 | disposition home or self-care (01) ==
LOC: HO.HMCC 11:18
PROVIDERS: PCP Internal Medicine; Visit Provider Internal Medicine
DX: E78.5 Hyperlipidemia, unspecified (principal); I10 Essential (primary) hypertension; R41.3 Other amnesia; R20.0 Anesthesia of skin; M25.441 Effusion, right hand; E03.9 Hypothyroidism, unspecified; D64.9 Anemia, unspecified

== ENCOUNTER 2025-08-28 11:17 | Outpatient (REF) | payer MEDICARE, SELFPAY ==
[2025-08-28 13:11] LABS: MANUAL DIFF FLAG NO
[2025-08-28 13:29] LABS: Hematocrit 31.2 % (37.0-47.0); Hemoglobin 9.9 g/dl (12.0-16.0); Imm Gran Abs Auto 0.05 X10*3/uL (0.00-0.03); Imm Gran Pct Auto 0.4 % (0.0-0.4); Lymphocytes Absolute Auto 0.8 X10*3/uL (1.2-4.9); Mean Corpuscular HGB Conc 31.7 g/dl (31.0-35.0); Mean Corpuscular Hemoglobin 27.6 pg (27.0-33.0); Mean Corpuscular Volume 86.9 fL (80.0-98.0); NRBC Abs Auto 0.000 X10*3/uL (0.0-0.012); NRBC Pct Auto 0.0 /100WBC (0.0-0.2); Platelet Count 472 X10*3/uL (160-400); Red Blood Count 3.59 X10*6/uL (4.20-5.50); White Blood Count 13.8 X10*3/uL (4.8-10.8)
[2025-08-28 14:06] LABS: Iron 10 mcg/dL (30-160); Percent Iron Saturation 6 % (15-50); Total Iron Binding Capacity 175 mcg/dL (228-428); Unsaturated Iron Binding 165 ug/dL
[2025-08-28 14:25] LABS: Ferritin 403 ng/mL (10-250); Free T4 (Free Thyroxine) 0.99 ng/dL (0.71-1.85); Thyroid Stimulating Hormone 4.87 uIU/mL (0.32-4.0)
== END 2025-08-28 11:18 | disposition home or self-care (01) ==
LOC: HO.HMGCLDS 11:17
PROVIDERS: PCP Internal Medicine; Visit Provider Internal Medicine
DX: I10 Essential (primary) hypertension (principal); E78.5 Hyperlipidemia, unspecified; R41.3 Other amnesia; R20.0 Anesthesia of skin; M25.431 Effusion, right wrist; M25.441 Effusion, right hand; E03.9 Hypothyroidism, unspecified; D64.9 Anemia, unspecified
CPT/HCPCS: 36415; 82728; 83540; 84439; 84443; 85025; 99212

== ENCOUNTER → 2025-09-18 11:55 | Outpatient (BNVA) | payer MEDICARE, SELFPAY | PROVIDERS: PCP Internal Medicine | DX: Z01.30 Encounter for examination of blood pressure without abnormal findings (principal) | CPT/HCPCS: 99211 ==

== ENCOUNTER 2025-09-30 09:40 | Outpatient (REF) | payer MEDICARE, SELFPAY ==
--- NOTE | 2025-09-30 09:43 | EMG_ITS ---
Chief complaint: numbness and tingling in right hand Reason for referral: M25.441, R20.0 Anesthesia of skin Referred by: Clarice Boyce MD Procedure done: NCS and EMG of right hand Right median and ulnar motor studies were performed. Right median and ulnar mixed sensory and radial sensory study was performed an EMG needle examination was performed. Findings: Right median motor distal latencies was moderately prolonged. Right median amplitude were larger at elbow than wrist and reverse pattern was noted with ulnar study. Right median mixed distal latencies was moderately prolonged with slow conduction velocity. Similar pattern was noted with ulnar mixed study. Ulnar motor study revealed mild slowing across elbow. Impression: 1. Czki-[id number]-qbwheulb right median neuropathy across carpal tunnel 2. Mild right ulnar neuropathy across cubital tunnel 3. Right Walter Darren anastomosis, a normal variant Codin [address] MTDD
== END 2025-09-30 09:41 | disposition home or self-care (01) ==
LOC: HO.NEURO 09:40
PROVIDERS: PCP Internal Medicine; Visit Provider Internal Medicine
DX: M25.441 Effusion, right hand (principal); R20.0 Anesthesia of skin; R20.2 Paresthesia of skin
CPT/HCPCS: 95886; 95909

== ENCOUNTER → 2025-09-30 09:43 | Outpatient (BNV) | payer MEDICARE, SELFPAY | PROVIDERS: PCP Internal Medicine; Visit Provider Psychiatry & Neurology Neurology | DX: G56.01 Carpal tunnel syndrome, right upper limb (principal) | CPT/HCPCS: 95886; 95909 ==

== ENCOUNTER 2025-10-02 10:23 | Outpatient (REF) | payer MEDICARE, SELFPAY ==
--- NOTE | ~2025-10-02 | US_ITS ---
CLINICAL HISTORY: I10 - Essential (primary) hypertension US Bilateral Carotid Duplex Comparison: None provided Findings: No significant plaque within the common carotid arteries. No significant plaque within the carotid bulbs. Normal color doppler and waveforms morphology. Peak systolic velocities: Right CCA: 90.4 cm/s. Right ICA: 112 cm/s. ICA/CCA ratio: 0.73. Right ECA: Unremarkable. Right vertebral artery flow antegrade. Right subclavian artery peak systolic velocity measures 210.7 cm/sec. Left CCA: 79 cm/s. Left ICA: 90.7 cm/s. ICA/CCA ratio: 0.61. Left ECA: Unremarkable. Left vertebral artery flow antegrade. IMPRESSION: Normal carotid velocities, no significant stenosis (0-49% stenosis). Elevated velocity of the right subclavian artery suggesting stenosis. This document has been electronically signed by: Anita Watson MD on 10/02/2025 18:39:18
--- OUTSIDE RECORDS SUMMARY | 2025-10-02 15:22 | XMS_ITS | Patient Health Record ---
[facility] Address [address] [place] [address] Care Team Providers Care Product Safety Coordinator Name Role Phone Austen JEREZ, Clarice Cantor Primary Care Provider Un available Lorenakwaku Herlinda Unavailable [phone] Allergies Allergen (clinical drug ingredient) Drug/Non Drug [...] W/U Status Risk Notes Problem Plantar wart (89981030) Plantar wart (B07.0) Active confirmed Problem Acquired hallux valgus (87732231) Hallux valgus (acquired), right foot (M20.11) Active confirmed Problem Acquired hammer toe of right foot (9683407511028836 ) Hammer toe of right foot (M20.41) Active confirmed Problem Acquired hammer toe of left foot (8822349250052589 ) Hammer toe of left foot (M20.42) Active confirmed Problem Acquired hallux rigidus (2902933) Hallux rigidus of right foot (M20.21) Active confirmed Problem Localized, primary osteoarthritis of the ankle and/or foot (785015912) Osteoarthritis of right ankle and foot (M19.071) Active confirmed Problem Accessory bone of foot (2254525325) Accessory bone of foot (Q74.2) Active confirmed [...] [employer] [address] [facility] [address] [id number] Dodie Watson Self - patient is the insured [employer] [address] [place] [address] [id number] Dodie Watson Self - patient is the insured Medical (General) History Medical History History ICD Code Glaucoma Reflux ( GERD) thyroid Chicken pox Surgical History Surgery Date(Month/Year) ovary removal surgery colonoscopy
== END 2025-10-02 10:24 | disposition home or self-care (01) ==
LOC: HO.US 10:23
PROVIDERS: PCP Internal Medicine; Visit Provider Internal Medicine
DX: I10 Essential (primary) hypertension (principal); E78.5 Hyperlipidemia, unspecified; R41.3 Other amnesia; R60.0 Localized edema; R42 Dizziness and giddiness; Z79.899 Other long term (current) drug therapy
CPT/HCPCS: 93880; 99212

== ENCOUNTER → 2025-10-02 10:24 | Outpatient (BNV) | payer MEDICARE, SELFPAY | PROVIDERS: PCP Internal Medicine; Visit Provider Student in an Organized Health Care Education/Training Program | DX: R60.0 Localized edema (principal) | CPT/HCPCS: 93880 ==

== ENCOUNTER 2025-10-02 15:22 | Outpatient (AMB) | payer MEDICARE, SELFPAY ==
[2025-10-02 15:29] VITALS: BP 108/50; PULSE 108; TEMP 37.2; O2SAT 97; BMI 24.4
--- NOTE | 2025-10-02 15:29 | AM.OFFWIN_ITS ---
Intake Vital Signs 10/02/25 15:29 Height 5 ft 5.5 in Weight 149 lb BMI 24.4 BP 108/50 L Blood Pressure Location Lt brachial Position Sitting Pulse 108 H Pulse Source Pulse Oximeter Temp 99.0 F Temp Source Oral Pulse Oximetry (%) 97 Oxygen Delivery Method Room Air Intake Visit Reasons: EP swelling in right/left ankles Intake Note: pt presents with bilateral ankle swelling for a couple weeks- denies pain or injury Patient Tobacco Use Status: Never used Tobacco Allergies lisinopril Allergy (Intermediate, Verified 10/02/25 15:33) Cough balsam carolina Allergy (Verified 10/02/25 15:33) Unknown cobalt Allergy (Verified 10/02/25 15:33) Unknown neomycin Allergy (Verified 10/02/25 15:33) Unknown propyl gallate Allergy (Verified 10/02/25 15:33) Unknown amoxicillin Adverse Reaction (Unknown, Verified 10/02/25 15:33) yeast infection codeine Adverse Reaction (Unknown, Verified 10/02/25 15:33) vomiting MDBGN Methyldibromo glutaronitrile Allergy (Uncoded 10/02/25 15:33) Unknown bactrim Adverse Reaction (Uncoded 10/02/25 15:33) Confusion Do you need a note to return to daycare/school/sports/work: No HPI HPI Comments History of Present Illness Details 85 y/o female presents to the walk-in [facility] with bilateral ankle swelling for the past 2 weeks. Denies pain, injury, or trauma to the ankles. Denies shortness of breath, chest pain, dizziness, or headaches. History of hypertension; currently takes Losartan 50 mg daily. No recent medication changes reported. [facility] Medical History (Updated 10/02/25 @ 16:08 by Sandrine Madera NP) Peripheral edema Anemia, iron deficiency Memory deficits Cough due to CONNOR inhibitor Anxiety disorder Rosacea Stress fracture of right foot Essential hypertension External hemorrhoids without complication Recurrent insomnia Postmenopause Menopause Osteopenia of multiple sites Dyslipidemia Ovarian cyst Migraine Esophagitis Acquired hypothyroidism Surgical History S/P dilatation of esophageal stricture History of salpingo-oophorectomy Family History Father Smoker Lung cancer Mother Multiple myeloma Social History (Updated 09/18/25 @ 15:40 by Karen Gates RN) Household Members: None Housing: House Alcohol intake: current Patient Tobacco Use Status: Never used Tobacco e-Cigarette/Vaping Use: Never Used Second Hand Smoke Exposure: No service: No Current occupational status: retired Cognitive needs: Yes Hearing needs: No Vision needs: Yes Review of Systems Const All systems reviewed & are unremarkable except as noted in HPI and below Physical Exam Vital Signs: Last Vital Signs Temp 99.0 F 10/02/25 15:29 Pulse 108 H 10/02/25 15:29 BP 108/50 L 10/02/25 15:29 Pulse Ox 97 10/02/25 15:29 Oxygen Delivery Method Room Air 10/02/25 15:29 BMI result Body Mass Index 24.4 Const General: no acute distress Nutritional Appearance: obese Orientation/consciousness: patient oriented x3 Resp Effort & Inspection: normal respiratory effort Cardio Heart sounds: S1 normal heart sound present and S2 normal heart sound present Neuro General: patient oriented x3 Extrem Other: Bilateral ankle edema, non-tender, pitting Edema. No erythema, warmth, or skin breakdown. Psych Speech and movement: Normal speech and movement present Assessment & Plan Assessment & Plan (1) Peripheral edema: Code(s): R60.0 - Localized edema Plan: Differential includes venous insufficiency, medication effect (less likely with Losartan), fluid retention, early HF signs (though patient denies SOB/CP), renal insufficiency, dependent edema. Encourage leg elevation, low-sodium diet, and use of compression stockings. Monitor for red-flag symptoms: SOB, chest pain, unilateral swelling, sudden worsening. Medications: New [COMPRESSION STOCKINGS] As directed 1 ea 0RF PERIPHERAL EDEMA R60.0 - Localized edema [COMPRESSION STOCKINGS] As directed 1 ea 0RF PERIPHERAL EDEMA R60.0 - Localized edema Coding Level of Care Code Est Pt Level 4 (48645) Diagnoses Peripheral edema R60.0 Time Spent (min) 20
== END 2025-10-02 16:12 | disposition home or self-care (01) ==
PROVIDERS: PCP Internal Medicine; Visit Provider Nurse Practitioner Family
DX: R60.0 Localized edema (principal)

== ENCOUNTER 2025-10-29 09:51 | Outpatient (AMB) | payer MEDICARE, SELFPAY ==
[2025-10-29 10:16] VITALS: BP 130/72; PULSE 88; O2SAT 98; BMI 24.4
--- NOTE | 2025-10-29 10:16 | AM.OFFWIN_ITS ---
Intake Vital Signs 10/29/25 10:16 Height 5 ft 5.5 in Weight 149 lb BMI 24.4 BP 130/72 Blood Pressure Location Lt brachial Position Sitting Pulse 88 Pulse Source Pulse Oximeter Pulse Oximetry (%) 98 Oxygen Delivery Method Room Air Intake Visit Reasons: EP Both hands swelling Intake Note: Patient presents c/o bilateral hand swelling/pain x2 weeks Patient Tobacco Use Status: Never used Tobacco Allergies lisinopril Allergy (Intermediate, Verified 10/29/25 10:19) Cough balsam carolina Allergy (Verified 10/29/25 10:19) Unknown cobalt Allergy (Verified 10/29/25 10:19) Unknown neomycin Allergy (Verified 10/29/25 10:19) Unknown propyl gallate Allergy (Verified 10/29/25 10:19) Unknown amoxicillin Adverse Reaction (Unknown, Verified 10/29/25 10:19) yeast infection codeine Adverse Reaction (Unknown, Verified 10/29/25 10:19) vomiting MDBGN Methyldibromo glutaronitrile Allergy (Uncoded 10/29/25 10:19) Unknown bactrim Adverse Reaction (Uncoded 10/29/25 10:19) Confusion HPI HPI Comments History of Present Illness Details Patient is an 85yo F who presents to office with hand swelling Presents with her son. He is providing most of history 6-8 weeks ago she noted R hand swelling; came here and had xray completed and she was given wrist splint for it When she worse brace, she felt symptoms got better Has not been wearing brace lately A few weeks later she was seen by Dr. Boyce PCP who viewed R hand and referred to neurology to have a test completed; she was getting numbness in R middle finger ?carpal tunnel at that time. Completed the test and has not gotten the results besides mild/moderate findings per son 4 weeks ago was also seen for ankle swel ling and that lasted approx 3-4 days but has not reoccured Over the last 3 weeks she has had a day or two where L had is now swollen She denies new medications asides from iron tablets and colase and her levithyroxine was increased Painful hands; rates it has an 8/10 Sometimes she taken Tylenol No trauma or injury She denies any ankle/leg pain or swelling No CP or SOB No pain radiation to elbows or shoulders She said some numbness in fingers She can not make a fist No skin color changes [facility] Medical History (Updated 10/29/25 @ 10:44 by Kristel Mahajan PA-C) Peripheral edema Anemia, iron deficiency Memory deficits Cough due to CONNOR inhibitor Anxiety disorder Rosacea Stress fracture of right foot Essential hypertension External hemorrhoids without complication Recurrent insomnia Postmenopause Menopause Osteopenia of multiple sites Dyslipidemia Ovarian cyst Migraine Esophagitis Acquired hypothyroidism Surgical History S/P dilatation of esophageal stricture History of salpingo-oophorectomy Family History Father Smoker Lung cancer Mother Multiple myeloma Social History (Updated 09/18/25 @ 15:40 by Karen Gates RN) Household Members: None Housing: House Alcohol intake: current Patient Tobacco Use Status: Never used Tobacco e-Cigarette/Vaping Use: Never Used Second Hand Smoke Exposure: No service: No Current occupational status: retired Cognitive needs: Yes Hearing needs: No Vision needs: Yes Review of Systems Const Denies chills and Denies fever(s) Card Denies chest pain and Denies dyspnea Resp Denies dyspnea Musc Reports joint swelling, Reports numbness, Denies radiating pain into limb and Reports tingling Skin/Breast Denies pruritus, Denies rash, Reports skin swelling and Denies wounds Neuro Reports numbness and Reports tingling Physical Exam Exam Exam: General: Non-toxic, NAD. Speaking full sentences. Skin: Warm dry throughout. No erythema, ecchymosis or lesions to upper extremities. Bilateral writs and dorsal aspect of hands and digits are edematous bilaterally but equal between the 2 upper extremities. Lower extremities are equal in size and shape bilaterally without pitting edema or ttp. Eye: EOMI Respiratory: CTA bilaterally. No wheezes, rales or rhonchi Cardiac: RRR. No murmur. Radial pulse intact bilaterally. Cap refill < 2 seconds digits on hands. MSK: No ttp clavicles, shoulders or elbows bilaterally. Pt unable to make fist bilaterally due to finger edema. No joint specific ttp to hands/wrist. Full ROM remaining extremities including elbows bilaterally. Neurology: Alert. She said subjectively her fingertips feel more numb with palpation compared to L side but she does still have sensation. Gait without abnormality Psych: Good mood and affect Vital Signs: Last Vital Signs Pulse 88 10/29/25 10:16 BP 130/72 10/29/25 10:16 Pulse Ox 98 10/29/25 10:16 Oxygen Delivery Method Room Air 10/29/25 10:16 BMI result Body Mass Index 24.4 Assessment & Plan Assessment & Plan (1) Hand edema: Code(s): R60.0 - Localized edema Plan: Patient seen and evaluated. She has no lower extremity edema. + bilateral hand edema noted. She has been seen multiple times for extremity edema over the last 2-3 months She has not increased weight from last visit 1 month ago; not concerned for fluid retention I reviewed med list without any obvious medication to cause peripheral edema She has no hx of DVT and bilateral would be unlikely I discussed all of this with pt and her son. I discussed that neuropathy symptoms are most likely secondary to the edema of unknown origin I sent message to PCP for close follow up and further work up. Labs in August We discussed RUE brace, bilateral upper extremity elevation and close PCP follow up Patient gave verbal understanding and had no additional questions or concerns at time of discharge We discussed CP, SOB, dizziness, weakness, redness, fever etc seek immediate evaluation All questions answered Coding Level of Care Code Est Pt Level 3 (68325) Diagnoses Hand edema R60.0
== END 2025-10-29 11:25 | disposition home or self-care (01) ==
PROVIDERS: PCP Internal Medicine; Visit Provider Physician Assistant
DX: R60.0 Localized edema (principal)

== ENCOUNTER → 2025-10-29 09:51 | Outpatient (BNVA) | payer MEDICARE, SELFPAY | PROVIDERS: PCP Internal Medicine; Visit Provider Physician Assistant | DX: R60.0 Localized edema (principal); R20.0 Anesthesia of skin | CPT/HCPCS: 99212 ==

== ENCOUNTER 2025-11-10 09:57 | Outpatient (REF) | payer MEDICARE, SELFPAY ==
--- OUTSIDE RECORDS SUMMARY | 2025-11-10 10:52 | XMS_ITS | Patient Health Record ---
[facility] Address [address] [place] [address] Care Team Providers Care Counselor Education Professor Name Role Phone Austen JEREZ, Clarice Cantor Primary Care Provider Un available Lorenakwaku Herlinda Unavailable [phone] Allergies Allergen (clinical drug ingredient) Drug/Non Drug [...] W/U Status Risk Notes Problem Plantar wart (17222604) Plantar wart (B07.0) Active confirmed Problem Acquired hallux valgus (75986384) Hallux valgus (acquired), right foot (M20.11) Active confirmed Problem Acquired hammer toe of right foot (5650353306088703 ) Hammer toe of right foot (M20.41) Active confirmed Problem Acquired hammer toe of left foot (8668615123858475 ) Hammer toe of left foot (M20.42) Active confirmed Problem Acquired hallux rigidus (0551653) Hallux rigidus of right foot (M20.21) Active confirmed Problem Localized, primary osteoarthritis of the ankle and/or foot (840449248) Osteoarthritis of right ankle and foot (M19.071) Active confirmed Problem Accessory bone of foot (6161802762) Accessory bone of foot (Q74.2) Active confirmed [...] [employer] [address] [place] [address] [id number] Dodie Watson Self - patient is the insured [employer] [address] [place] [address] [id number] Dodie Watson Self - patient is the insured Medical (General) History Medical History History ICD Code Glaucoma Reflux ( GERD) thyroid Chicken pox Surgical History Surgery Date(Month/Year) ovary removal surgery colonoscopy
[2025-11-10 14:01] LABS: Hematocrit 32.8 % (37.0-47.0); Hemoglobin 10.3 g/dl (12.0-16.0); Imm Gran Abs Auto 0.03 X10*3/uL (0.00-0.03); Imm Gran Pct Auto 0.4 % (0.0-0.4); Lymphocytes Absolute Auto 1.0 X10*3/uL (1.2-4.9); MANUAL DIFF FLAG NO; Mean Corpuscular HGB Conc 31.4 g/dl (31.0-35.0); Mean Corpuscular Hemoglobin 26.8 pg (27.0-33.0); Mean Corpuscular Volume 85.2 fL (80.0-98.0); NRBC Abs Auto 0.000 X10*3/uL (0.0-0.012); NRBC Pct Auto 0.0 /100WBC (0.0-0.2); Platelet Count 386 X10*3/uL (160-400); Red Blood Count 3.85 X10*6/uL (4.20-5.50); White Blood Count 8.0 X10*3/uL (4.8-10.8)
[2025-11-10 14:52] LABS: Alanine Aminotransferase < 6 U/L (0-31); Albumin Level 3.9 g/dL (3.5-5.0); Alkaline Phosphatase 63 U/L (39-117); Anion Gap 11 (12-20); Aspartate Amino Transferase 21 U/L (5-31); Blood Urea Nitrogen 12 mg/dL (9-16); Calcium 9.2 mg/dL (8.4-10.2); Carbon Dioxide 27 mmol/L (22-29); Chloride 104 mmol/L (96-108); Cholesterol 143 mg/dL (<200); Estimated Glomerular Filt Rate > 60; HDL Cholesterol 53 mg/dL (>40); Iron 48 mcg/dL (30-160); Percent Iron Saturation 23 % (15-50); Potassium 4.1 mmol/L (3.3-5.1); Sodium 138 mmol/L (135-145); Total Iron Binding Capacity 208 mcg/dL (228-428); Total Protein 7.5 g/dL (6.5-8.0); Triglycerides 67 mg/dL (<150); Unsaturated Iron Binding 160 ug/dL
[2025-11-10 15:18] LABS: Ferritin 270 ng/mL (10-250); Free T4 (Free Thyroxine) 1.15 ng/dL (0.71-1.85); Thyroid Stimulating Hormone 4.57 uIU/mL (0.32-4.0)
== END 2025-11-10 09:58 | disposition home or self-care (01) ==
LOC: HO.HMGCLDS 09:57
PROVIDERS: PCP Internal Medicine; Visit Provider Internal Medicine
DX: I10 Essential (primary) hypertension (principal); D50.9 Iron deficiency anemia, unspecified; E78.5 Hyperlipidemia, unspecified; E03.9 Hypothyroidism, unspecified; R60.0 Localized edema; Z13.21 Encounter for screening for nutritional disorder
CPT/HCPCS: 36415; 80053; 80061; 82306; 82728; 83540; 84439; 84443; 84481; 85025; 85652; 86140; 86431

== ENCOUNTER 2025-11-12 13:37 | Outpatient (AMB) | payer MEDICARE, SELFPAY ==
[2025-11-12 13:40] VITALS: BP 136/80; PULSE 85; TEMP 36.4; O2SAT 98; BMI 24.4
--- NOTE | 2025-11-12 13:40 | MHC.PC.OV ---
Vital Signs 11/12/25 13:40 Height 5 ft 5.5 in Weight 149 lb BMI 24.4 BP 136/80 Blood Pressure Location Lt brachial Position Sitting Pulse 85 Pulse Source Pulse Oximeter Temp 97.6 F Temp Source Oral Pulse Oximetry (%) 98 Oxygen Delivery Method Room Air Intake Visit Reasons: f/u labs Manager Policy: Present (Friend) Accompanied by: Friend Allergies lisinopril Allergy (Intermediate, Verified 11/12/25 14:29) Cough brimonidine Allergy (Mild, Verified 11/12/25 14:29) rash around eye balsam carolina Allergy (Verified 11/12/25 14:29) Unknown cobalt Allergy (Verified 11/12/25 14:29) Unknown neomycin Allergy (Verified 11/12/25 14:29) Unknown propyl gallate Allergy (Verified 11/12/25 14:29) Unknown amoxicillin Adverse Reaction (Unknown, Verified 11/12/25 14:29) yeast infection codeine Adverse Reaction (Unknown, Verified 11/12/25 14:29) vomiting MDBGN Methyldibromo glutaronitrile Allergy (Uncoded 11/12/25 14:29) Unknown bactrim Adverse Reaction (Uncoded 11/12/25 14:29) Confusion Medication List - Last Reconciled 11/12/25 by Clarice Boyce MD atorvastatin 10 mg PO MOWEFR 3 months butterbur root extract 50 mg PO DAILY cetirizine (Zyrtec) 10 mg PO DAILY PRN cholecalciferol (vitamin D3) 25 mcg PO DAILY [COMPRESSION STOCKINGS As directed] [COMPRESSION STOCKINGS As directed] docusate sodium (Colace) 100 mg PO DAILY doxepin 6 mg PO BEDTIME PRN epinephrine 0.3 mg (0.3 mL) IM Q15M PRN ferrous sulfate 325 mg PO DAILY latanoprost 0.005% drps ophthalmic (eye) levothyroxine (Levoxyl) 88 mcg PO DAILY lorazepam 0.5 mg PO DAILY PRN losartan 50 mg PO DAILY omeprazole 20 mg PO DAILY PRN Tobacco use date assessed: 08/28/25 Fall risk assessment: No Falls in past year Last assessed Fall Risk: 11/12/25 Dental Screening Dental Screen Date: 08/28/25 HPI f/u labs HPI Details The patient is an 85 year old female presenting for a follow-up visit to review lab results and discuss new issues. She reports ongoing swelling in her hands, particularly the right, which prevents her from wearing her ring. She experienced ankle swelling approximately eight weeks ago, which prompted a discussion about compression stockings, but this symptom has since resolved. She also states that she could not fill her prescriptions for her compression socks as from 2 different medical stores, which states that they do not care with them In addition to swelling, the patient experiences numbness in the fingertips of her right hand, but not the left. Due to these symptoms, she was referred to a neurologist and underwent a nerve conduction study, though she has not yet had a follow-up appointment to discuss the results. The study, performed on October 01, indicated a right median nerve reduced amplitude and right ulnar nerve involvement, consistent with mild carpal tunnel syndrome and ulnar neuropathy. She has a wrist brace but has been wearing it inconsistently during today and not exclusively at night as recommended. Recent lab work shows her anemia is improving while taking iron supplements, and she has been advised to continue them. Her iron stores are replenishing Her hypothyroidism is well-managed with levothyroxine, and recent thyroid levels are within the normal range. Her lab results also show normal kidney function, electrolytes, glucose, vitamin D, and excellent cholesterol levels. The patient reports taking doxepin every night for sleep but is unsure of its efficacy . Most troublesome however is her problems with memory and recall, , which as per her friend is getting worse. [facility] Medical History (Updated 11/12/25 @ 15:08 by Clarice Boyce MD) Right median nerve neuropathy Peripheral edema Anemia, iron deficiency Memory deficits Cough due to CONNOR inhibitor Anxiety disorder Rosacea Stress fracture of right foot Essential hypertension External hemorrhoids without complication Recurrent insomnia Postmenopause Menopause Osteopenia of multiple sites Dyslipidemia Ovarian cyst Migraine Esophagitis Acquired hypothyroidism Surgical History S/P dilatation of esophageal stricture History of salpingo-oophorectomy Family History Father Smoker Lung cancer Mother Multiple myeloma Social History Household Members: None Housing: House Alcohol intake: current Patient Tobacco Use Status: Never used Tobacco e-Cigarette/Vaping Use: Never Used Second Hand Smoke Exposure: No service: No Current occupational status: retired Cognitive needs: Yes Hearing needs: No Vision needs: Yes Questionnaire Thrive Questionnaire Date Thrive assessed: 02/27/25 I am a: Patient What is your living situation today?: I have a steady place to live Within the past 12 months, did the food you bought not last and you didn't have the money to get more?: Never true Within the past 12 months, did you worry whether your food would run out before you got money to buy more?: Never true Do you have trouble paying for medicines?: No Do you have trouble getting transportation to medical appointments?: No Do you have trouble paying your heating and electricity bill?: No Do you have trouble taking care of your child, family member or friend?: No Do you have trouble with day-to-day activities such as bathing, preparing meals, shopping, managing finances, etc.?: No Are you currently unemployed and looking for a job?: No Are you interested in more education?: No Currently or been in a relationship where the following occur: No concerns reported THRIVE Score: 0 FREDRICK-7 AMB Questionnaire FREDRICK-7 Date FREDRICK - 7 assessed: 11/12/25 Feeling nervous, anxious, or on edge: 0 = Not at all Not being able to stop or control worryin = Not at all Worrying too much about different things: 0 = Not at all Trouble relaxin = Not at all Being so restless that it is hard to sit still: 0 = Not at all Becoming easily annoyed or irritable: 0 = Not at all Feeling afraid as if something awful might happen: 0 = Not at all Total FREDRICK-7 score (0-4 normal; 5-9 mild; 10-14 moderate; 15-21 severe): 0 Source: Developed by Drs. Stan Long, Kika Will, Edward Rutherford and colleagues, with an educational cristian from [employer]. FREDRICK-7 Assessment Billing FREDRICK-7 Assessment Tool: FREDRICK-7 Assessment 94657 Review of Systems Const Reports no additional complaints Eyes Denies change in vision ENT Reports no additional complaints, Denies dizziness and Denies disequilibrium Card Denies chest pain, Denies irregular heart rhythm, Denies palpitations and Denies dyspnea Resp Denies dyspnea GI Reports no additional complaints Reports no additional complaints Musc Reports stiffness Neuro Denies dizziness, Denies seizure-like activity and Denies disequilibrium Psych Reports no additional complaints Endo Denies palpitations Anthony/Lymph Denies easy bleeding and Denies easy bruising Aller/Immun Reports no additional complaints Physical exam (Primary Care) Vital Signs: Last Vital Signs Temp 97.6 F 11/12/25 13:40 Pulse 85 11/12/25 13:40 BP 136/80 11/12/25 13:40 Pulse Ox 98 11/12/25 13:40 Oxygen Delivery Method Room Air 11/12/25 13:40 BMI result Body Mass Index 24.4 Tobacco/Smoking Status: Tobacco use Status Tobacco use date assessed 08/28/25 11/12/25 13:44 Patient Tobacco Use Status Never used Tobacco 11/12/25 13:44 e-Cigarette/Vaping Use Never Used 11/12/25 13:44 Thrive Assessment: Date of Thrive Assessment Date Thrive assessed 02/27/25 11/12/25 13:44 Currently or been in a relationship where the following occur: No concerns reported Const Other: Alert oriented x3, no acute cardiorespiratory distress, ambulatory with normal gait HENMT Mouth: Normal oral and palatal mucosa present, oropharynx normal and moist mucous membranes Eyes Other: sees Dr Smith General: appearance normal, both eyes and all related structures Neck Other: Supple, no lymphadenopathy, thyroid gland nonpalpable Resp Other: Clear to auscultation bilaterally Cardio Other: S1-S2 present, regular rate and rhythm GI Palpation (GI): Soft to palpation, nontender, no guarding and no masses Auscultation: normal bowel sounds General: Yes no CVA tenderness Back/Spine/Pelvis Back: no CVA tenderness and No back tenderness Neuro General: gait normal and moves all extremities Extrem Other: Positive Tinel's sign, negative Phalen's General: Yes full ROM, Yes no joint enlargement, Yes no clubbing, cyanosis or edema and Yes normal gait Psych Appearance: grossly normal and well kempt Mental Status: mental status grossly normal Speech and movement: Normal speech and movement present Affect: normal affect Results Reviewed Results Reviewed: nidia: Dodie Watson Age/Sex: 85/F : 1940 Unit#: [id number] Attend Dr: Clarice Boyce MD Re11/10/25 Status: [facility]P [facility] SPEC : [id number] SHELLI: 11/10/25 STATUS: COMP REQ : [id number] RECD: 11/10/[address]: Clarice Boyce MD COMP: 11/10/25 ENTERED: 11/10/[address] [facility] [address]: ORDERED: CBC Auto Diff Test Result Flag Reference WBC 8.0 4.8-10.8 X10*3/uL RBC 3.85 L 4.20-5.50 X10*6/uL HGB 10.3 L 12.0-16.0 g/dl HCT 32.8 L 37.0-47.0 % MCV 85.2 80.0-98.0 fL MCH 26.8 L 27.0-33.0 pg MCHC 31.4 31.0-35.0 g/dl RDW 16.4 H 11.0-16.0 % PLT 386 160-400 X10*3/uL MPV 9.3 L 9.4-12.3 fL Neut Pct Auto 75.6 H 45-73 % ImGran Pct Auto 0.4 0.0-0.4 % Lymp Pct Auto 12.6 L 20-40 % Clayton Pct Auto 7.2 2-11 % Eos Pct Auto 3.0 0-4 % Baso Pct Auto 1.2 0-2 % NRBC Pct Auto 0.0 0.0-0.2 /100WBC ANC Neut Abs # 6.1 2.0-8.3 x10*3/uL ImGran Abs Auto 0.03 0.00-0.03 X10*3/uL Lymph Abs Auto 1.0 L 1.2-4.9 X10*3/uL Clayton Abs Auto 0.6 0.1-1.2 X10*3/uL Eos Abs Auto 0.2 0.0-0.4 X10*3/uL Baso Abs Auto 0.1 0.0-0.2 X10*3/uL NRBC Abs Auto 0.000 0.0-0.012 X10*3/uL Name: Dodie Watson Cuca Age/Sex: 85/F : 1940 Unit#: [id number] Attend Dr: Clarice Boyce MD Re11/10/25 Status: DEP REF Location: MED Disch: SPEC : [id number] SHELLI: 11/10/25 STATUS: COMP REQ : [id number] RECD: 11/10/25-[address]: Clarice Boyce MD COMP: 11/10/251518 ENTERED: 11/10/25-[address] [facility] [address]: ORDERED: CMP Fast, IRON PROF, Ferritin, C Reactive Prot, Lipid Panel, Vitamin D 2 Free T4, TSH Test Result Flag Reference Sodium 138 135-145 mmol/L Potassium 4.1 3.3-5.1 mmol/L CL 104 96-108 mmol/L CO2 27 22-29 mmol/L Gap 11 L 12-20 BUN 12 9-16 mg/dL Creat 0.76 0.5-1.4 mg/dL eGFR > 60 Chronic Kidney Disease: Estimated GFR < 60 mL/min/1.73m2 Severe Kidney Disease: Estimated GFR < 15 mL/min/1.73m2 FBS 95 60-99 mg/dL CA 9.2 8.4-10.2 mg/dL Iron 48 30-160 mcg/dL TIBC 208 L 228-428 mcg/dL Saturation 23 15-50 % UIBC 160 ug/dL Ferritin 270 H 10-250 ng/mL Total Bili 0.6 0.0-1.0 mg/dL AST (GOT) 21 5-31 U/L ALT (GPT) < 6 0-31 U/L CRP 3.07 H < or = 0.50 mg/dL Protein, Total 7.5 6.5-8.0 g/dL Alb 3.9 3.5-5.0 g/dL Triglyceride 67 <150 mg/dL Desirable Triglyceride: less than 150 mg/dL Borderline High Triglyceride 150-199 mg/dL High Triglyceride: 200-499 mg/dL Very High Triglyceride: greater than or equal to 5OO mg/dL Cholesterol 143 <200 mg/dL Desirable Cholesterol: less than 200 mg/dL Borderline High Cholesterol: 200-239 mg/dL High Cholesterol: greater than 239 mg/dL LDL Calculated 77 <100 mg/dL Desirable LDL: less than 100 mg/dL Near Optimal/Above Optimal LDL: 110-129 mg/dL Borderline High LDL: 130-159 mg/dL High LDL: 160-189 mg/dL Very High LDL: greater than or equal to 190 mg/dL HDL 53 >40 mg/dL Desirable HDL: greater than 40 mg/dL Note: This HDL assay may give artificially low results in patients with liver disease. Alk Phos 63 39-117 U/L Vitamin D 25-OH 77.6 >30 ng/mL Health Based Reference Values* < 20 ng/mL Deficient 20-30 ng/mL Insufficient > 30 ng/mL Sufficient *Jeanie WELLS. N Engl J Med. 2007;357:266-280 There is no well-established upper level of normal vitamin D levels. Some laboratories use 50 ng/mL as an upper limit of normal. However, toxicity is patient-dependent and may occur at any level. Careful correlation with the patient's presentation is necessary and, if there is concern for vitamin D toxicity, treatment should be considered irrespective of the serum level. Care must be taken in interpreting Vitamin D results from different laboratories and methodologies. Published data demonstrated that results from patients undergoing hemodialysis may show a negative bias when tested with various automated 25-OH vitamin D assays when compared to LC-MS/MS. When testing samples from patients whose predominant form of Vitamin D is Vitamin D2, such as patients receiving Vitamin D2 supplementation, results that are subtherapeutic should be confirmed with another method such as LC-MS/MS. Free T4 1.15 0.71-1.85 ng/dL TSH 3rd Gen. 4.57 H 0.32-4.0 uIU/mL Note: A sustained TSH level above 2.5 uIU/mL may warrant further investigation. TSH 3rd Generation ([facility]) Coding Level of Care Code Est Pt Level 4 (53116) Diagnoses Memory deficits R41.3 Right median nerve neuropathy G56.11 Additional Codes FREDRICK-7 Assessment Billing - FREDRICK-7 Assessment Tool: FREDRICK-7 Assessment 00813 ([id number]) Assessment & Plan Assessment & Plan (1) Memory deficits: Code(s): R41.3 - Other amnesia Category: Medical Plan: Ordered neurology consult for further evaluation management. (2) Right median nerve neuropathy: Code(s): G56.11 - Other lesions of median nerve, right upper limb Category: Medical Plan: The patient's symptoms of right-hand swelling and fingertip numbness are consistent with findings from her nerve conduction study, which showed mild right median and ulnar nerve involvement. The plan is for conservative management, including wearing a wrist brace on the right hand strictly at night to maintain a neutral position and prevent nerve compression She was educated to avoid flexing the wrist. If symptoms do not improve, a referral to a hand surgeon will be considered for other treatment options, such as injections or surgical release. Orders: Referrals Neurology Referral R41.3 - Other amnesia
--- OUTSIDE RECORDS SUMMARY | 2025-11-12 15:00 | XMS_ITS | Patient Health Record ---
[facility] Organization [facility] Address [address] [place] [address] Care Team Providers Care Automation Engineer Name Role Phone Austen JEREZ, Clarice Cantor Primary Care Provider Un available Lorenakwaku Herlinda Unavailable [phone] Allergies Allergen (clinical drug ingredient) Drug/Non Drug [...] W/U Status Risk Notes Problem Plantar wart (54632199) Plantar wart (B07.0) Active confirmed Problem Acquired hallux valgus (18768761) Hallux valgus (acquired), right foot (M20.11) Active confirmed Problem Acquired hammer toe of right foot (0059160098493234 ) Hammer toe of right foot (M20.41) Active confirmed Problem Acquired hammer toe of left foot (2275245369797635 ) Hammer toe of left foot (M20.42) Active confirmed Problem Acquired hallux rigidus (4547466) Hallux rigidus of right foot (M20.21) Active confirmed Problem Localized, primary osteoarthritis of the ankle and/or foot (948884955) Osteoarthritis of right ankle and foot (M19.071) Active confirmed Problem Accessory bone of foot (0058039943) Accessory bone of foot (Q74.2) Active confirmed [...] [employer] [address] [facility] [place] [address] [id number] Dodie Watson Self - patient is the insured [employer] [address] [place] [address] [id number] Dodie Watson Self - patient is the insured Medical (General) History Medical History History ICD Code Glaucoma Reflux ( GERD) thyroid Chicken pox Surgical History Surgery Date(Month/Year) ovary removal surgery colonoscopy
== END 2025-11-12 15:18 | disposition home or self-care (01) ==
LOC: HO.HMCC 13:38
PROVIDERS: PCP Internal Medicine; Visit Provider Internal Medicine
DX: R41.3 Other amnesia (principal); G56.11 Other lesions of median nerve, right upper limb

== ENCOUNTER → 2025-11-12 13:37 | Outpatient (BNVA) | payer MEDICARE, SELFPAY | PROVIDERS: PCP Internal Medicine; Visit Provider Internal Medicine | DX: G56.11 Other lesions of median nerve, right upper limb (principal); R41.3 Other amnesia; D50.9 Iron deficiency anemia, unspecified; E03.9 Hypothyroidism, unspecified; Z13.39 Encounter for screening examination for other mental health and behavioral disorders | CPT/HCPCS: 96127; 99212 ==